=== PATIENT | female | born 1935 | race African-American/Black ===

== ENCOUNTER 2016-07-22 08:14 | Inpatient (IN) | payer MEDICARE, OTHER ==
[~2016-07-22] VITALS: Ht 167.6 cm; Wt 88.5 kg
[2016-07-22] VITALS (7 sets, daily range): BP systolic 124–163; BP diastolic 50–87
[~2016-07-22 08:14] MED LIST: AMIODARONE HCL400 M1 ORAL; COLACE100 MG ORAL; CORDARONE200 M1 ORAL; COUMADIN5 MG ORAL; COUMADIN7.5 MG ORAL; DIOVAN40 MG ORAL; HYDROCODON-ACE1 EAC1 PO; LABETALOL HCL200 MG; LEVEMIR FL100 UNIT/1 SUBQ; LEVOTHROID25 MCG ORAL; LEVOTHYROXINE75 MCG ORAL; METOPROLOL SUCC25 MG ORAL; NOVOLOG100 UNIT/3 SUBQ; ONDANSETRON ODT4 MG ORAL; RENVELA800 MG PO; SENSIPAR30 MG ORAL; WARFARIN SODIUM1 MG ORAL; Warfarin RX monitoring MISC
--- NOTE | 2016-07-22 08:55 | Emergency Room Report ---
History of Present Illness General Chief Complaint: Chest Pain Source: Patient, EMS Present Illness HPI 81 YO F presents with acute chest pain with SOB for 3 hours. Chest pain is left sided, non-radiating, 8/10. No assoc fever/chills, cough, abd pain. Patient due for HD today. Last HD 2 days prior. Allergies: Coded Allergies: No Known Allergies (Verified , 09/03/10) Patient History Past Medical History: renal disease Past Surgical History: none Pertinent Family History: none Social History: Denies: alcohol use, drug use, smoking Now: No Immunizations: UTD Reviewed Nursing Documentation: PMH: Agreed, PSxH: Agreed Nursing Documentation-PMH Hx Cardiac Problems: Yes Hx Hypertension: Yes Hx Pacemaker: No Hx Asthma: No Hx COPD: No Hx Diabetes: Yes Hx Cancer: Yes Hx Gastrointestinal Problems: No Hx Dialysis: Yes History Of Psychiatric Problem: No Hx Neurological Problems: No Hx Cerebrovascular Accident: No Hx Seizures: No Review of Systems All Other Systems: negative except mentioned in HPI Physical Exam Vital Signs Date Time Temp Pulse Resp B/P Pulse Ox O2 Delivery O2 Flow Rate FiO2 07/22/16 08:20 97.9 72 16 158/78 98 Room Air Sp02 EP Interpretation: reviewed, normal General Appearance: normal inspection, well appearing, no apparent distress, alert, GCS 15, non-toxic Head: normocephalic, atraumatic Eyes: bilateral eye EOMI, bilateral eye PERRL ENT: normal ENT inspection, hearing grossly normal, normal voice Neck: normal inspection, full range of motion, supple, no bony tend Respiratory: normal inspection, normal breath sounds, no rhonchi, no respiratory distress, no retraction, no accessory muscle use, no wheezing, crackles Cardiovascular #1: regular rate, rhythm, no edema Genitourinary: no CVA tenderness Musculoskeletal: normal inspection, back normal, normal range of motion, Jair' s Sign negative, other - bilateral +1 pitting edema to lower extremities Neurologic: normal inspection, alert, oriented x3, responsive, warble saw operator III-XII nml as tested, motor strength/tone normal, speech normal Psychiatric: normal inspection, judgement/insight normal, mood/affect normal Skin: normal inspection, normal color, no rash Procedures Critical Care Time Critical Care Time Care for a 81 YO Fwith Chest pain. PMHx and CAD risk factors include: HTN, CKD on HD Presents warm, complains of left sided nonradiating chest pain, sharp in nature onset 3 hours prior assoc with SOB Patient immediately placed on elevator service mechanic with rhytm strip and STAT EKG was obtained which showed 1st degree AV block, no ischemia Labs indicated: CBC, CMP, troponin, BNP Highly suspected: AMI vs. unstable angina vs MSK pain vs acute pulm edema Possible interventions - BIPAP, Heparin, SL Ntg, Nitro drip, Thrombolytics, repeat EKG. ASA and Nitro given by EMS Critical care time of 35 minutes including: re-exams and consultations and review of serial EKG's and Laboratory tests, not including reportable procedures. Medical Decision Making Medicare Attestation I Snehal Torres MD hereby attest that the medical record entry for date of service, 06/28/16 accurately reflects signatures/notations that I made in my capacity as MD when I treated/diagnosed the above listed Medicare beneficiary. I attest that this information is true, accurate and complete to the best of my knowledge. I understand that any falsification, omission, or concealment of material fact may subject me to administrative, civil, or criminal liability. This patient warrants hospital admission for extreme of age and has a condition that cannot be treated as outpatient. Diagnostic Impression: Primary Impression: Chest pain Qualified Codes: R07.9 - Chest pain, unspecified Additional Impressions: Hyperkalemia CKD (chronic kidney disease) Qualified Codes: N18.9 - Chronic kidney disease, unspecified ER Course 81 YO F with acute chest pain and SOB. Due for HD today. Afebrile. VSS DDx includes ACS, PNA, acute pulm edema, MSK pain PLAN Cardiac, O2 monitor, labs, EKG, CXR Likely admission for ACS rule out and HD EKG Diagnostic Results Rate: other - 1st degree AV block Rhythm: NSR ST Segments: no acute changes ASA given to the pt in ED: No Rhythm Strip Diag. Results EP Interpretation: yes Rate: 79 Rhythm: NSR, no PVC's, no ectopy Chest X-Ray Diagnostic Results EP Interpretation: Yes Findings: no consolidation, no effusion, no pneumothorax, other - bilateral pulm congestion Reevaluation Time: 10:32 Last Vital Signs Date Time Temp Pulse Resp B/P Pulse Ox O2 Delivery O2 Flow Rate FiO2 07/22/16 08:42 72 16 Room Air 07/22/16 08:34 97.9 158/78 98 Reevaluation Impression CXR: pulm congestion, unchanged from previous. CMP: HyperK. CKD. Elevated BNP EKst degree AV alessandra A: Needs HD. Pulm congestion on CXR but patient not in acute distress. Normal vital signs. hyperK tx with kayexelate, calicum and albuterol Endorsed to Dr Emmanuel at 1034am for tele admission and ACS rule out Disposition: ADMITTED INPATIENT Condition: Critical Referrals: NOT CHOSEN IPA/,REFERRING (PCP) SNEHAL TORRES M.D. Jul 22, 2016 08:55
[2016-07-22 10:06] LABS: BASOPHILS % (AUTO) 1.1 % (0.0-2.0); EOSINOPHILS % (AUTO) 4.5 % (0.0-3.0); LYMPHOCYTES % (AUTO) 17.9 % (20.0-45.0); MEAN CORPUSCULAR HEMOGLOBIN 29.2 PG (27.0-31.0); MEAN CORPUSCULAR HGB CONC 31.3 G/DL (32.0-36.0); MEAN CORPUSCULAR VOLUME 93 FL (80-99); MEAN PLATELET VOLUME 8.8 FL (6.5-10.1); MONOCYTES % (AUTO) 18.3 % (1.0-10.0); NEUTROPHILS % (AUTO) 58.2 % (45.0-75.0); PLATELET COUNT 145 K/UL (150-450); RED CELL DISTRIBUTION WIDTH 14.9 % (11.6-14.8); WHITE BLOOD COUNT 4.4 K/UL (4.8-10.8)
[2016-07-22 10:21] LABS: ALANINE AMINOTRANSFERASE 5 U/L (3-33); ASPARTATE AMINO TRANSFERASE 16 U/L (5-40); CALCIUM 8.4 mg/dL (8.6-10.2); CARBON DIOXIDE 23 mEQ/L (20-30); CHLORIDE 90 mEQ/L (98-107); CREATININE 8.2 mg/dL (0.5-0.9); HEMOLYSIS 16; SODIUM 137 mEQ/L (135-145); TOTAL PROTEIN 7.5 g/dL (6.6-8.7)
[2016-07-22 10:23] LABS: TROPONIN I < 0.30 ng/mL (<=0.30)
--- NOTE | 2016-07-22 10:28 | Diagnostic Imaging Report ---
Indication: Chest pain Technique: One view of the chest Comparison: 04/20/2015 Findings: There is bilateral interstitial edema, appearance of which is similar to the prior study. There is airspace disease and small right pleural effusion, also similar to prior exam. The heart is markedly enlarged. Surgical clips are seen in the region of the thyroid. Degenerative changes of both shoulders are again noted. Left upper lobe calcified granuloma is again demonstrated Impression: Cardiomegaly Evidence of interstitial congestion, similar to previous exam of 04/20/2015 Other stable findings as noted, including evidence of prior thyroid surgery, old granulomatous disease, bilateral shoulder degeneration
[2016-07-22 10:34] LABS: CKMB 4.5 ng/mL (< 3.8)
[2016-07-22 10:39] LABS: ANION GAP 24 (5-15)
[2016-07-22 10:49] LABS: POTASSIUM 7.1 mEQ/L (3.4-4.9)
[2016-07-22] MEDS ORDERED: WARFARIN SODIUM5 MG ORAL (10:59)
[2016-07-22] MEDS ORDERED: LABETALOL HCL100 MG ORAL (11:00)
[2016-07-22] MEDS ORDERED: DIOVAN40 MG ORAL (11:00)
[2016-07-22] MEDS ORDERED: Sodium Polystyrene Sulfonate 15gm Powder ORAL ONE (11:15)
[2016-07-22] MEDS ORDERED: Albuterol ud Inhalation HHN ONE (11:15)
[2016-07-22] MEDS ORDERED: Calcium Gluconate 1gm/10ml vial IVP ONE (11:15)
--- NOTE | 2016-07-22 12:30 | Consultation ---
Consult Note Assessment/Plan Renal consult dictated # [id number] THOM CASTILLO Jul 22, 2016 12:30
[2016-07-22] MEDS ORDERED: Amiodarone 200mg tab ORAL SCH (14:00)
[2016-07-22] MEDS ORDERED: Sensipar 30mg Tab ORAL SCH (14:00)
[2016-07-22 14:29] LABS: INR 2.5 (0.9-1.1); PROTHROMBIN TIME 26.5 SEC (9.30-11.50)
[2016-07-22 14:36] LABS: TROPONIN I < 0.30 ng/mL (<=0.30)
[2016-07-22] MEDS: Warfarin Sodium 5mg ORAL SCH (16:00)
--- NOTE | 2016-07-22 17:37 | Consultation ---
DATE OF CONSULTATION: NEPHROLOGY CONSULTATION REFERRING PHYSICIAN: Marquis Vizcarra M.D. REASON FOR CONSULTATION: End-stage renal disease, requiring emergent dialysis. HISTORY OF PRESENT ILLNESS: This is a 81-year-old female, who has a history of end-stage renal disease, on hemodialysis every Tuesday, , and Tuesday. The patient is under care of Dr. Lopez for Nephrology. Dr. Vizcarra has seen the patient in the past for Internal Medicine. The patient came to the emergency room for chest pain. I was asked to see her because she needs dialysis. Her laboratories were checked this morning in the ER and it showed the potassium of 7.1. PAST MEDICAL HISTORY: History of diabetes mellitus, atrial fibrillation, history of breast cancer status post lumpectomy, and previous history of gastrointestinal stromal tumor. The patient had a tunnel catheter removed in April. The patient has new dialysis access in the left arm. MEDICATIONS: Reviewed. ALLERGIES: No known drug allergies. SOCIAL HISTORY: No history of smoking or alcohol abuse. REVIEW OF SYSTEMS: Noncontributory for the purpose for this consultation. PHYSICAL EXAMINATION: GENERAL: This is an elderly female, in no acute distress. VITAL SIGNS: Blood pressure is 158/78, pulse 58, respirations 19, and temperature 97.9 degrees. HEENT: [place] conjunctivae. Anicteric sclerae. NECK: Supple. LUNGS: Clear to auscultation. HEART: S1 and S2 without murmurs or rubs. ABDOMEN: Soft and nontender. EXTREMITIES: Trace pedal edema. LABORATORY AND DIAGNOSTIC DATA: The CBC shows a WBC of 4.4, hematocrit 41.9, hemoglobin is 13.1, and platelets 145,000. Chemistry panel shows serum sodium of 137, potassium 7.1, chloride 90, BUN 78, and creatinine 8.2. Calcium is 8.4. ASSESSMENT: This is a 81-year-old female, who is admitted with chest pain. She has end-stage renal disease with severe hyperkalemia. She has history of diabetes and hypertension and history of breast cancer. PLAN: The patient will be dialyzed today with zero potassium bath. Medication will be adjusted. The patient will have cardiology workup for chest pain. I will follow and make further recommendations based on hospital course and findings. Thank you very much, Dr. Vizcarra, for this consultation. Billy Emmanuel M.D. DR: TRISHA JOB#: [id number] CC: LETICIA
[2016-07-22] MEDS: Docusate 100mg cap ORAL SCH (17:52)
--- NOTE | 2016-07-22 19:11 | History & Physical ---
History and Physical History & Physicial DATE OF ADMISSION: 07/22/16 CHIEF COMPLAINT: chest pain HISTORY OF PRESENT ILLNESS: This is a 80-year-old female, who has a history of end-stage renal disease on hemodialysis every Tuesday, and Tuesday, atrial fibrillation on Coumadin, DM, Right breast ca s/p XRT and lumpectomy 2010, HTN who presents with Left Chest pain that started while sitting in a chair earlier this AM. She had pain over her right breast which she describes as sharp and diffuse but non-radiating. she states she had SOB associated with the CP. denies nausea, vomiting or abd pain. Her last dialysis was today - 2.5L . PAST MEDICAL HISTORY: The patient has a history of atrial fibrillation on coumadin , history of breast cancer status post lumpectomy, hypertension, diabetes mellitus, history of hemorrhoids. She said that she had also kidney cancer; 1 of the kidneys were removed. MEDICATIONS AT HOME: Included: Current Medications Medications (Trade) Dose Ordered Sig/Donte Route PRN Reason Start Time Stop Time Status Last Admin Dose Admin Amiodarone HCl (Cordarone) 200 mg DAILY ORAL 07/23/16 09:00 08/22/16 08:59 Cinacalcet (Sensipar) 30 mg DAILY ORAL 07/23/16 09:00 08/22/16 08:59 Dextrose (Dextrose 50%) STAT PRN IV Hypoglycemia 07/22/16 12:30 08/21/16 12:29 Docusate Sodium (Colace) 100 mg BID ORAL 07/22/16 18:00 08/21/16 17:59 07/22/16 17:52 Heparin Sodium (Porcine) (Heparin Sod 1000 units/ml 10ml) 2,000 unit ONCE ONCE IV 07/23/16 12:30 07/23/16 12:31 Labetalol HCl (Normodyne) 200 mg Q8HR ORAL 07/22/16 14:00 08/21/16 13:59 Levothyroxine Sodium (Synthroid) 88 mcg DAILY ORAL 07/22/16 14:00 08/21/16 13:59 07/22/16 14:33 Sevelamer Carbonate (Renvela) 4,000 mg BEFORE MEALS ORAL 07/22/16 16:30 08/21/16 16:29 07/22/16 16:03 Sodium Chloride (Sodium Chloride 1000ml bag) 1,000 ml @ 500 mls/hr Q2H PRN IVLG sbp<90 during hd 07/23/16 12:17 08/22/16 12:16 Warfarin Sodium (Coumadin) 5 mg SuTuThSa@1700 ORAL 07/22/16 17:00 07/27/16 16:59 07/22/16 16:00 Warfarin Sodium (Coumadin) 7.5 mg MoWeFr@1700 ORAL 07/23/16 17:00 07/28/16 16:59 SOCIAL HISTORY: No history of smoking or alcohol abuse. ALLERGIES: No known drug allergies. REVIEW OF SYSTEMS: 12 pt ROS negative except above positives PHYSICAL EXAMINATION: Last 24 Hour Vital Signs Date Time Temp Pulse Resp B/P Pulse Ox O2 Delivery O2 Flow Rate FiO2 07/22/16 17:40 Room Air 07/22/16 17:39 97.0 60 20 128/66 97 Room Air 07/22/16 16:00 65 07/22/16 16:00 97.7 61 13 143/75 100 Room Air 07/22/16 13:57 62 157/77 07/22/16 13:30 96.8 75 20 163/87 97 Room Air 07/22/16 13:30 Room Air 07/22/16 12:40 62 19 157/77 99 Room Air 07/22/16 12:34 97.9 62 16 157/77 99 Room Air 07/22/16 11:57 58 19 99 Room Air 21 07/22/16 11:42 53 19 98 Room Air 21 07/22/16 11:42 21 07/22/16 10:00 97.9 78 16 124/50 99 Room Air 07/22/16 08:42 72 16 Room Air 07/22/16 08:34 97.9 16 158/78 98 Room Air 07/22/16 08:20 97.9 72 16 158/78 98 Room Air HEENT: Pale conjunctivae. Anicteric sclerae. NECK: Supple. no JVD. LUNGS: Clear to auscultation b/l. no rales or crackles HEART: S1 and S2 without murmurs or rubs. chest wall - right breast surgical scar. right breast fullness and firmness with some tenderness to touch. ABDOMEN: Soft, nontender. EXTREMITIES: Trace edema bilaterally. The patient has a left upper arm fistula with some pseudoaneurysm. LABORATORY FINDINGS: Laboratory Tests Test 07/22/16 09:32 07/22/16 14:05 White Blood Count 4.4 K/UL (4.8-10.8) L Red Blood Count 4.50 M/UL (4.20-5.40) Hemoglobin 13.1 G/DL (12.0-16.0) Hematocrit 41.9 % (37.0-47.0) Mean Corpuscular Volume 93 FL (80-99) Mean Corpuscular Hemoglobin 29.2 PG (27.0-31.0) Mean Corpuscular Hemoglobin Concent 31.3 G/DL (32.0-36.0) L Red Cell Distribution Width 14.9 % (11.6-14.8) H Platelet Count 145 K/UL (150-450) L Mean Platelet Volume 8.8 FL (6.5-10.1) Neutrophils (%) (Auto) 58.2 % (45.0-75.0) Lymphocytes (%) (Auto) 17.9 % (20.0-45.0) L Monocytes (%) (Auto) 18.3 % (1.0-10.0) H Eosinophils (%) (Auto) 4.5 % (0.0-3.0) H Basophils (%) (Auto) 1.1 % (0.0-2.0) Sodium Level 137 mEQ/L (135-145) Potassium Level 7.1 mEQ/L (3.4-4.9) *H Chloride Level 90 mEQ/L (98-107) L Carbon Dioxide Level 23 mEQ/L (20-30) Anion Gap 24 (5-15) H Blood Urea Nitrogen 78 mg/dL (7-23) H Creatinine 8.2 mg/dL (0.5-0.9) H Estimat Glomerular Filtration Rate mL/min (>60) Glucose Level 80 mg/dL (74-106) Calcium Level 8.4 mg/dL (8.6-10.2) L Total Bilirubin 0.5 mg/dL (0.0-1.2) Aspartate Amino Transf (AST/SGOT) 16 U/L (5-40) Alanine Aminotransferase (ALT/SGPT) 5 U/L (3-33) Alkaline Phosphatase 105 U/L (35-104) H Total Creatine Kinase 97 U/L (26-140) Creatine Kinase MB 4.5 ng/mL (< 3.8) H Creatine Kinase MB Relative Index 4.6 Troponin I < 0.30 ng/mL (<=0.30) < 0.30 ng/mL (<=0.30) Pro-B-Type Natriuretic Peptide 7650 pg/mL (0-450) H Total Protein 7.5 g/dL (6.6-8.7) Albumin 3.8 g/dL (3.5-5.2) Globulin 3.7 g/dL Albumin/Globulin Ratio 1.0 (1.0-2.7) Prothrombin Time 26.5 SEC (9.30-11.50) H Prothromb Time International Ratio 2.5 (0.9-1.1) H CXR - mild pulmonary congestion EKG - Sinus bradycardia wwith 1st degree block./ no ST changes. ASSESSMENT: right sided chest pain - noncardiac. likely 2/2 R breast mass/fluid vs PE ESRD on HD Hyperkalemia HTN PLAN: Cardiac monitoring trop x 2 negative Cardiology recs appreciated HD per renal. due for HD today Renal consulted EKG shows no St changes ASA and Statin c/w coumadin Will review [facility] records. She may need a CT chest with IV contrast to r/o breast ca reoccurrence or PE. BENJI GONZALEZ M.D. Jul 22, 2016 19:11
[2016-07-23] VITALS: BP 136/68
[2016-07-23 04:00] VITALS: BP 137/70
[2016-07-23 06:01] LABS: ANION GAP 21 (5-15); CALCIUM 8.1 mg/dL (8.6-10.2); CARBON DIOXIDE 22 mEQ/L (20-30); CHLORIDE 91 mEQ/L (98-107); CHOLESTEROL 157 mg/dL (< 200); CHOLESTEROL/HDL RATIO 3.4 (3.3-4.4); CREATININE 7.4 mg/dL (0.5-0.9); HEMOLYSIS 38; LDL CHOLESTEROL (CALC.) 99 mg/dL (60-99); POTASSIUM 5.7 mEQ/L (3.4-4.9); SODIUM 134 mEQ/L (135-145)
[2016-07-23 06:04] LABS: PROTHROMBIN TIME 31.7 SEC (9.30-11.50); TROPONIN I < 0.30 ng/mL (<=0.30)
[2016-07-23 08:00] VITALS: BP 156/80
[2016-07-23] MEDS: Docusate 100mg cap ORAL SCH ×2 (09:10→18:12)
[2016-07-23] MEDS: Amiodarone 200mg tab ORAL SCH (09:11)
[2016-07-23] MEDS: Sensipar 30mg Tab ORAL SCH (09:12)
[2016-07-23 12:00] VITALS: BP 168/80
[2016-07-23] MEDS ORDERED: Heparin Sod 1000 units/ml 10ml IV ONE (12:30)
--- NOTE | 2016-07-23 13:11 | Nephrology Progress Note ---
Assessment/Plan Problem List: (1) ESRD (end stage renal disease) (2) HTN (hypertension) (3) DM (diabetes mellitus) (4) Hyperkalemia (5) Chest pain (6) ACS (acute coronary syndrome) Plan HD in AM Discussed with RN CT chest was ordered Subjective Subjective No CP today Objective Objective Last 24 Hour Vital Signs Date Time Temp Pulse Resp B/P Pulse Ox O2 Delivery O2 Flow Rate FiO2 07/23/16 08:00 97.9 58 20 156/80 98 Room Air 07/23/16 08:00 60 07/23/16 06:00 56 137/70 07/23/16 04:00 60 07/23/16 04:00 97.9 56 18 137/70 96 Room Air 07/23/16 00:00 98.4 60 20 136/68 98 Room Air 07/22/16 23:51 68 07/22/16 22:03 67 143/78 07/22/16 20:00 63 07/22/16 20:00 97.5 63 13 141/70 98 Room Air 07/22/16 17:40 Room Air 07/22/16 17:39 97.0 60 20 128/66 97 Room Air 07/22/16 16:00 65 07/22/16 16:00 97.7 61 13 143/75 100 Room Air 07/22/16 13:57 62 157/77 07/22/16 13:30 96.8 75 20 163/87 97 Room Air 07/22/16 13:30 Room Air Intake and Output 07/22/16 07/23/16 19:00 07:00 Intake Total 120 ml 100 ml Output Total 2500 ml Balance -2380 ml 100 ml Intake Oral 120 ml 100 ml Other 0 ml Output Hemodialysis UF 2500 ml # Voids 2 # Bowel Movements 1 1 Laboratory Tests 07/22/16 14:05: Prothrombin Time 26.5H, Prothromb Time International Ratio 2.5H, Troponin I < 0.30 07/23/16 03:45: Prothrombin Time 31.7H, Prothromb Time International Ratio 3.0H, Troponin I < 0.30, Sodium Level 134L, Potassium Level 5.7H, Chloride Level 91L, Carbon Dioxide Level 22, Anion Gap 21H, Blood Urea Nitrogen 66H, Creatinine 7.4H, Estimat Glomerular Filtration Rate , Glucose Level 99, Hemoglobin A1c 5.0, Calcium Level 8.1L, Triglycerides Level 59, Cholesterol Level 157, LDL Cholesterol 99, HDL Cholesterol 46, Cholesterol/HDL Ratio 3.4 Height (Feet): 5 Height (Inches): 6.00 Weight (Pounds): 195 Cardiovascular: normal rate Respiratory/Chest: lungs clear Extremities: moderate edema THOM CASTILLO Jul 23, 2016 13:11
--- NOTE | 2016-07-23 13:56 | Cardiology Report ---
APPROVED REPORT EKG Measurement Heart [id number] Sinus bradycardia with 1st degree AV block Nonspecific intraventricular block Abnormal ECG
[2016-07-23 16:00] VITALS: BP 146/87
[2016-07-23] MEDS: Warfarin Sodium 7.5mg ORAL SCH (16:27)
[2016-07-23 20:00] VITALS: BP 136/73
--- NOTE | 2016-07-23 23:43 | Internal Med Progress Note ---
Subjective Physician Name ZackeryBenji Attending Physician Billy Emmanuel Current Medications Medications (Trade) Dose Ordered Sig/Donte Route PRN Reason Start Time Stop Time Status Last Admin Dose Admin Acetaminophen 650 mg 650 mg Q6H PRN ORAL Mild Pain 07/22/16 21:30 08/21/16 21:29 07/23/16 16:26 Amiodarone HCl (Cordarone) 200 mg DAILY ORAL 07/23/16 09:00 08/22/16 08:59 07/23/16 09:11 Cinacalcet (Sensipar) 30 mg DAILY ORAL 07/23/16 09:00 08/22/16 08:59 07/23/16 09:12 Dextrose (Dextrose 50%) STAT PRN IV Hypoglycemia 07/22/16 12:30 08/21/16 12:29 Docusate Sodium (Colace) 100 mg BID ORAL 07/22/16 18:00 08/21/16 17:59 07/23/16 18:12 Heparin Sodium (Porcine) (Heparin Sod 1000 units/ml 10ml) 500 unit ONCE IV 07/24/16 06:00 07/24/16 18:00 Labetalol HCl (Normodyne) 200 mg Q8HR ORAL 07/22/16 14:00 08/21/16 13:59 07/23/16 21:40 Levothyroxine Sodium (Synthroid) 88 mcg DAILY ORAL 07/22/16 14:00 08/21/16 13:59 07/23/16 09:10 Sevelamer Carbonate (Renvela) 4,000 mg BEFORE MEALS ORAL 07/22/16 16:30 08/21/16 16:29 07/23/16 16:26 Sodium Chloride (Sodium Chloride 1000ml bag) 1,000 ml @ 500 mls/hr Q2H PRN IVLG sbp<90 during hd 07/24/16 06:00 07/24/16 23:59 Warfarin Sodium (Coumadin) 5 mg SuTuThSa@1700 ORAL 07/22/16 17:00 07/27/16 16:59 07/22/16 16:00 Warfarin Sodium (Coumadin) 7.5 mg MoWeFr@1700 ORAL 07/23/16 17:00 07/28/16 16:59 07/23/16 16:27 Allergies: Coded Allergies: No Known Allergies (Verified , 09/03/10) All Systems: reviewed and negative except above - Chest pain resolved today. had HD Objective Last Vital Signs Date Time Temp Pulse Resp B/P Pulse Ox O2 Delivery O2 Flow Rate FiO2 07/23/16 21:40 64 146/87 07/23/16 20:00 98.1 27 98 Room Air 07/22/16 11:57 21 General Appearance: WD/WN, no apparent distress EENT: PERRL/EOMI, normal ENT inspection Neck: non-tender, normal alignment Cardiovascular: normal peripheral pulses, normal rate Respiratory/Chest: chest wall non-tender, lungs clear Abdomen: normal bowel sounds, non tender Extremities: normal range of motion, non-tender Edema: trace edema Neurologic: alert, responsive, normal mood/affect Skin: other - right breast firm mass w/ some fluctuance Laboratory Tests Test 07/23/16 03:45 Prothrombin Time 31.7 SEC (9.30-11.50) H Prothromb Time International Ratio 3.0 (0.9-1.1) H Sodium Level 134 mEQ/L (135-145) L Potassium Level 5.7 mEQ/L (3.4-4.9) H Chloride Level 91 mEQ/L (98-107) L Carbon Dioxide Level 22 mEQ/L (20-30) Anion Gap 21 (5-15) H Blood Urea Nitrogen 66 mg/dL (7-23) H Creatinine 7.4 mg/dL (0.5-0.9) H Estimat Glomerular Filtration Rate mL/min (>60) Glucose Level 99 mg/dL (74-106) Hemoglobin A1c 5.0 % (< 6.0) Calcium Level 8.1 mg/dL (8.6-10.2) L Troponin I < 0.30 ng/mL (<=0.30) Triglycerides Level 59 mg/dL (< 150) Cholesterol Level 157 mg/dL (< 200) LDL Cholesterol 99 mg/dL (60-99) HDL Cholesterol 46 mg/dL (> 60) Cholesterol/HDL Ratio 3.4 (3.3-4.4) Intake and Output 07/22/16 07/23/16 19:00 07:00 Intake Total 120 ml 100 ml Output Total 2500 ml Balance -2380 ml 100 ml Intake Oral 120 ml 100 ml Other 0 ml Output Hemodialysis UF 2500 ml # Voids 2 # Bowel Movements 1 1 Assessment/Plan Assessment/Plan ASSESSMENT: right sided chest pain - noncardiac. 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 due for HD today Renal consulted EKG shows no St changes ASA and Statin c/w coumadin CT chest with IV contrast to r/o breast ca reoccurrence or PE. if CT chest normal D/C HOME TOMORROW BENJI GONZALEZ M.D. Jul 22, 2016 19:11 Addendum: BENJI GONZALEZ M.D. on 07/22/16 @ 19:12 BENJI GONZALEZ M.D. Jul 23, 2016 23:43
[2016-07-24 00:20] VITALS: BP 156/74
[2016-07-24 04:00] VITALS: BP 142/59
[2016-07-24 05:48] LABS: INR 2.3 (0.9-1.1); PROTHROMBIN TIME 23.6 SEC (9.30-11.50)
[2016-07-24] MEDS ORDERED: Heparin Sod 1000 units/ml 10ml IV SCH (06:00)
[2016-07-24 08:02] VITALS: BP 155/59
[2016-07-24] MEDS: Sensipar 30mg Tab ORAL SCH (08:57)
[2016-07-24] MEDS: Docusate 100mg cap ORAL SCH ×2 (08:57→17:21)
[2016-07-24] MEDS: Amiodarone 200mg tab ORAL SCH (08:57)
--- NOTE | 2016-07-24 09:15 | Diagnostic Imaging Report ---
Clinical Indication: Chest pain, right breast mass Technique: IV administration nonionic contrast. Spiral acquisition obtained through the chest. Multiplanar reconstructions generated. Total dose length product 1260 mGycm. CTDIvol(s) 8, 62, 27 mGy Comparison: Chest CT angiogram dated 03/01/2013 Findings: 6 x 4 cm fluid collection is seen in the right breast, deep to the parenchyma but superficial to the pectoral muscles. It demonstrates rim calcification. It appears smaller than on the prior study, at which time it measured 8 x 6.5 cm. The previously demonstrated overlying skin thickening is no longer evident. The left breast is unremarkable and unchanged, demonstrate very dense parenchyma, however. No axillary mass or adenopathy demonstrated. There is a small right and trace left pleural effusion present. There is a masslike opacity posterior to the right pulmonary hilum, with its some scattered surrounding opacities. This measures approximately 2.1 cm in diameter. There are compressive atelectatic changes of left lung base. Compressive atelectatic changes of the left lung are also noted, as well as some atelectasis in the posterior left upper lobe. A calcified granuloma is again demonstrated in the superior segment of the left lower lobe. The heart is massively enlarged. There is an enlarged precarinal node, which measures approximately 3.6 cm in diameter. Calcified granulomatous lymph nodes are seen within the mediastinum. There is evidence of prior right thyroidectomy. The left thyroid lobe is markedly enlarged and demonstrates numerous nodules. This is also evident previously. The included upper abdominal anatomy is remarkable for evidence of interim cholecystectomy. The left kidney is atrophic and contains multiple cysts. This is also evident previously. The right kidney is not evident The spleen demonstrates numerous calcifications consistent with old granulomatous disease. The liver also contains numerous calcifications. The stomach is distended. The bones demonstrate a compression fracture deformity of the L1 vertebral body which was not evident on the prior study. Impression: 6 x 4 cm right breast fluid collection, demonstrated on prior 2012 exam, currently slightly smaller. This may reflect either a prosthesis or seroma, less likely a very large cyst Masslike opacity posterior the right pulmonary hilum, measuring approximately 2.1 cm in diameter. This may represent neoplasm or focal infiltrate Small right, trace left pleural effusion Compressive atelectatic changes of both lungs Massive cardiomegaly Precarinal lymphadenopathy Enlarged multinodular left thyroid lobe, also previously described. Evidence of prior right thyroidectomy Atrophic left kidney with multiple cysts, previously described Evidence of prior right nephrectomy Interim cholecystectomy L1 vertebral body compression fracture, new since prior exam of 2012, age otherwise indeterminate. Consider MRI for better characterization if clinically indicated Evidence of old granulomatous disease within the left lung, mediastinum, liver and spleen The CT scanner at [facility] is accredited by the [employer] and the scans are performed using protocols designed to limit radiation exposure to as low as reasonably achievable to attain images of sufficient resolution adequate for diagnostic evaluation.
[2016-07-24 11:12] VITALS: BP 148/74
[2016-07-24 13:27] LABS: TROPONIN I < 0.30 ng/mL (<=0.30)
--- NOTE | 2016-07-24 14:49 | Internal Med Progress Note ---
Subjective Date of Service: Jul 24, 2016 Physician Name Abhinav Martínez Attending Physician Billy Emmanuel Current Medications Medications (Trade) Dose Ordered Sig/Donte Route PRN Reason Start Time Stop Time Status Last Admin Dose Admin Acetaminophen 650 mg 650 mg Q6H PRN ORAL Mild Pain 07/22/16 21:30 08/21/16 21:29 07/24/16 10:28 Amiodarone HCl (Cordarone) 200 mg DAILY ORAL 07/23/16 09:00 08/22/16 08:59 07/24/16 08:57 Cinacalcet (Sensipar) 30 mg DAILY ORAL 07/23/16 09:00 08/22/16 08:59 07/24/16 08:57 Dextrose (Dextrose 50%) STAT PRN IV Hypoglycemia 07/22/16 12:30 08/21/16 12:29 Docusate Sodium (Colace) 100 mg BID ORAL 07/22/16 18:00 08/21/16 17:59 07/24/16 08:57 Heparin Sodium (Porcine) (Heparin Sod 1000 units/ml 10ml) 500 unit ONCE IV 07/24/16 06:00 07/24/16 18:00 Labetalol HCl (Normodyne) 200 mg Q8HR ORAL 07/22/16 14:00 08/21/16 13:59 07/23/16 21:40 Levothyroxine Sodium (Synthroid) 88 mcg DAILY ORAL 07/22/16 14:00 08/21/16 13:59 07/24/16 08:57 Sevelamer Carbonate (Renvela) 4,000 mg BEFORE MEALS ORAL 07/22/16 16:30 08/21/16 16:29 07/23/16 16:26 Sodium Chloride (Sodium Chloride 1000ml bag) 1,000 ml @ 500 mls/hr Q2H PRN IVLG sbp<90 during hd 07/24/16 06:00 07/24/16 23:59 Warfarin Sodium (Coumadin) 5 mg SuTuThSa@1700 ORAL 07/22/16 17:00 07/27/16 16:59 07/22/16 16:00 Warfarin Sodium (Coumadin) 7.5 mg MoWeFr@1700 ORAL 07/23/16 17:00 07/28/16 16:59 07/23/16 16:27 Allergies: Coded Allergies: No Known Allergies (Verified , 09/03/10) Objective Last Vital Signs Date Time Temp Pulse Resp B/P Pulse Ox O2 Delivery O2 Flow Rate FiO2 07/24/16 11:12 97.1 54 18 148/74 100 Room Air 07/22/16 11:57 21 Laboratory Tests Test 07/24/16 04:20 07/24/16 12:30 Prothrombin Time 23.6 SEC (9.30-11.50) H Prothromb Time International Ratio 2.3 (0.9-1.1) H Troponin I < 0.30 ng/mL (<=0.30) Intake and Output 07/23/16 07/24/16 19:00 07:00 Intake Total 220 ml 700 ml Balance 220 ml 700 ml Intake Oral 220 ml 700 ml # Voids 2 2 # Bowel Movements 2 3 ABHINAV MARTÍNEZ Jul 24, 2016 14:49
--- NOTE | 2016-07-24 15:00 | Internal Med Progress Note ---
Subjective Date of Service: Jul 24, 2016 Physician Name Abhinav Martínez Attending Physician Billy Emmanuel Current Medications Medications (Trade) Dose Ordered Sig/Donte Route PRN Reason Start Time Stop Time Status Last Admin Dose Admin Acetaminophen 650 mg 650 mg Q6H PRN ORAL Mild Pain 07/22/16 21:30 08/21/16 21:29 07/24/16 10:28 Amiodarone HCl (Cordarone) 200 mg DAILY ORAL 07/23/16 09:00 08/22/16 08:59 07/24/16 08:57 Cinacalcet (Sensipar) 30 mg DAILY ORAL 07/23/16 09:00 08/22/16 08:59 07/24/16 08:57 Dextrose (Dextrose 50%) STAT PRN IV Hypoglycemia 07/22/16 12:30 08/21/16 12:29 Docusate Sodium (Colace) 100 mg BID ORAL 07/22/16 18:00 08/21/16 17:59 07/24/16 08:57 Heparin Sodium (Porcine) (Heparin Sod 1000 units/ml 10ml) 500 unit ONCE IV 07/24/16 06:00 07/24/16 18:00 Labetalol HCl (Normodyne) 200 mg Q8HR ORAL 07/22/16 14:00 08/21/16 13:59 07/23/16 21:40 Levothyroxine Sodium (Synthroid) 88 mcg DAILY ORAL 07/22/16 14:00 08/21/16 13:59 07/24/16 08:57 Sevelamer Carbonate (Renvela) 4,000 mg BEFORE MEALS ORAL 07/22/16 16:30 08/21/16 16:29 07/23/16 16:26 Sodium Chloride (Sodium Chloride 1000ml bag) 1,000 ml @ 500 mls/hr Q2H PRN IVLG sbp<90 during hd 07/24/16 06:00 07/24/16 23:59 Warfarin Sodium (Coumadin) 5 mg SuTuThSa@1700 ORAL 07/22/16 17:00 07/27/16 16:59 07/22/16 16:00 Warfarin Sodium (Coumadin) 7.5 mg MoWeFr@1700 ORAL 07/23/16 17:00 07/28/16 16:59 07/23/16 16:27 Allergies: Coded Allergies: No Known Allergies (Verified , 09/03/10) ROS Limited/Unobtainable: No Constitutional: Reports: no symptoms HEENT: Reports: no symptoms Cardiovascular: Reports: chest pain Respiratory: Reports: shortness of breath Gastrointestinal/Abdominal: Reports: no symptoms Genitourinary: Reports: no symptoms Neurologic/Psychiatric: Reports: no symptoms Subjective Cover for Int Med-Dr Vizcarra. Objective Last Vital Signs Date Time Temp Pulse Resp B/P Pulse Ox O2 Delivery O2 Flow Rate FiO2 07/24/16 11:12 97.1 54 18 148/74 100 Room Air 07/22/16 11:57 21 General Appearance: WD/WN, no apparent distress, alert EENT: PERRL/EOMI, normal ENT inspection, TMs normal Neck: non-tender, normal alignment, supple Cardiovascular: normal peripheral pulses, no gallop/murmur, no JVD, bradycardia , irregularly irregular Respiratory/Chest: chest wall non-tender, no accessory muscle use, decreased breath sounds, crackles/rales, rhonchi - bilaterally, expiratory wheezing Abdomen: normal bowel sounds, non tender, soft, no organomegaly, no mass Extremities: normal range of motion Neurologic: die maintenance II-XII grossly normal, no motor/sensory deficits Skin: normal pigmentation, warm/dry Laboratory Tests Test 07/24/16 04:20 07/24/16 12:30 Prothrombin Time 23.6 SEC (9.30-11.50) H Prothromb Time International Ratio 2.3 (0.9-1.1) H Troponin I < 0.30 ng/mL (<=0.30) Intake and Output 07/23/16 07/24/16 19:00 07:00 Intake Total 220 ml 700 ml Balance 220 ml 700 ml Intake Oral 220 ml 700 ml # Voids 2 2 # Bowel Movements 2 3 Assessment/Plan Problem List: (1) Right middle lobe pneumonia Assessment & Plan: Start levaquin. Concerning in patient with history of breast cancer. await pulmonary consult. (2) Breast cancer (3) ESRD (end stage renal disease) Assessment & Plan: see nephrology note; Hemodialysis today. (4) Chest pain (5) PAF (paroxysmal atrial fibrillation) Assessment & Plan: Cont amiodarone and coumadin (6) DM (diabetes mellitus) (7) HTN (hypertension) Assessment & Plan: Labetalol (8) Bradycardia Assessment & Plan: On amiodarone. Await cardiology consult. (9) Hypothyroidism Assessment & Plan: cont levoxyl Status: not improved ABHINAV MARTÍNEZ Jul 24, 2016 15:00
--- NOTE | 2016-07-24 15:57 | Cardiac Electrophysiology PN ---
Subjective Subjective [id number] Objective Last 24 Hour Vital Signs Date Time Temp Pulse Resp B/P Pulse Ox O2 Delivery O2 Flow Rate FiO2 07/24/16 11:12 97.1 54 18 148/74 100 Room Air 07/24/16 08:02 97.5 59 18 155/59 100 Room Air 07/24/16 08:00 60 07/24/16 05:52 58 141/66 07/24/16 04:00 97.7 60 19 142/59 100 Room Air 07/24/16 03:44 60 07/24/16 00:20 98.1 64 19 156/74 97 Room Air 07/23/16 23:42 61 07/23/16 21:40 64 146/87 07/23/16 20:00 98.1 58 27 136/73 98 Room Air 07/23/16 20:00 62 07/23/16 16:00 97.9 56 27 146/87 99 Room Air 07/23/16 16:00 56 Intake and Output 07/23/16 07/24/16 19:00 07:00 Intake Total 220 ml 700 ml Balance 220 ml 700 ml Intake Oral 220 ml 700 ml # Voids 2 2 # Bowel Movements 2 3 Laboratory Tests Test 07/24/16 04:20 07/24/16 12:30 Prothrombin Time 23.6 SEC (9.30-11.50) H Prothromb Time International Ratio 2.3 (0.9-1.1) H Troponin I < 0.30 ng/mL (<=0.30) EZKE HAHN Jul 24, 2016 15:57
[2016-07-24 16:00] VITALS: BP 128/62
[2016-07-24] MEDS: Warfarin Sodium 5mg ORAL SCH (17:21)
--- NOTE | 2016-07-24 17:38 | Nephrology Progress Note ---
Assessment/Plan Problem List: (1) ESRD (end stage renal disease) (2) HTN (hypertension) (3) DM (diabetes mellitus) (4) Hyperkalemia (5) Chest pain (6) ACS (acute coronary syndrome) Plan dialyzed today Discussed with material hauler F/U Subjective Subjective No CP today Objective Objective Last 24 Hour Vital Signs Date Time Temp Pulse Resp B/P Pulse Ox O2 Delivery O2 Flow Rate FiO2 07/24/16 16:27 Room Air 07/24/16 12:20 Room Air 07/24/16 11:12 97.1 54 18 148/74 100 Room Air 07/24/16 08:02 97.5 59 18 155/59 100 Room Air 07/24/16 08:00 60 07/24/16 05:52 58 141/66 07/24/16 04:00 97.7 60 19 142/59 100 Room Air 07/24/16 03:44 60 07/24/16 00:20 98.1 64 19 156/74 97 Room Air 07/23/16 23:42 61 07/23/16 21:40 64 146/87 07/23/16 20:00 98.1 58 27 136/73 98 Room Air 07/23/16 20:00 62 Intake and Output 07/23/16 07/24/16 19:00 07:00 Intake Total 220 ml 700 ml Balance 220 ml 700 ml Intake Oral 220 ml 700 ml # Voids 2 2 # Bowel Movements 2 3 Laboratory Tests 07/24/16 04:20: Prothrombin Time 23.6H, Prothromb Time International Ratio 2.3H 07/24/16 12:30: Troponin I < 0.30 Height (Feet): 5 Height (Inches): 6.00 Weight (Pounds): 195 Cardiovascular: normal rate Respiratory/Chest: lungs clear Extremities: trace edema THOM CASTILLO Jul 24, 2016 17:38
[2016-07-24 20:00] VITALS: BP 155/76
[2016-07-25 00:16] VITALS: BP 146/64
[2016-07-25 04:07] VITALS: BP 146/77
[2016-07-25 06:44] LABS: INR 2.3 (0.9-1.1); PROTHROMBIN TIME 23.8 SEC (9.30-11.50)
[2016-07-25 07:05] LABS: BASOPHILS % (AUTO) 1.6 % (0.0-2.0); EOSINOPHILS % (AUTO) 2.6 % (0.0-3.0); MEAN CORPUSCULAR HEMOGLOBIN 29.5 PG (27.0-31.0); MEAN CORPUSCULAR HGB CONC 32.3 G/DL (32.0-36.0); MEAN CORPUSCULAR VOLUME 92 FL (80-99); MEAN PLATELET VOLUME 10.1 FL (6.5-10.1); MONOCYTES % (AUTO) 14.5 % (1.0-10.0); NEUTROPHILS % (AUTO) 65.4 % (45.0-75.0); PLATELET COUNT 130 K/UL (150-450); RED BLOOD COUNT 3.91 M/UL (4.20-5.40); RED CELL DISTRIBUTION WIDTH 14.6 % (11.6-14.8); WHITE BLOOD COUNT 5.2 K/UL (4.8-10.8)
[2016-07-25 07:07] LABS: ANION GAP 20 (5-15); CALCIUM 8.7 mg/dL (8.6-10.2); CARBON DIOXIDE 27 mEQ/L (20-30); CHLORIDE 88 mEQ/L (98-107); CREATININE 7.9 mg/dL (0.5-0.9); HEMOLYSIS 5; SODIUM 135 mEQ/L (135-145)
[2016-07-25 07:10] LABS: POTASSIUM 6.1 mEQ/L (3.4-4.9)
[2016-07-25 07:54] VITALS: BP 123/46
[2016-07-25] MEDS: Docusate 100mg cap ORAL SCH ×2 (08:38→17:47)
[2016-07-25] MEDS: Amiodarone 200mg tab ORAL SCH (08:38)
[2016-07-25] MEDS: Sensipar 30mg Tab ORAL SCH (08:38)
--- NOTE | 2016-07-25 08:48 | Consultation ---
DATE OF CONSULTATION: CARDIOLOGY CONSULTATION: REFERRING PHYSICIAN: Nash Galloway M.D. REASON FOR CONSULTATION: Management of hypertension and atrial fibrillation in the patient with chest pain. HISTORY OF PRESENT ILLNESS: The patient is a 81-year-old, lady with hypertension, diabetes, end-stage renal disease, on hemodialysis as well as chronic atrial fibrillation on Coumadin as well as history of right breast cancer status post radiation therapy and lumpectomy in 2010. The patient was admitted on 07/22/2016 with chest pain that sitting on a chair . The patient's pain was mostly on the right side of the chest and right breast and was described as sharp and diffuse. The patient also has shortness of breath with the episode. The patient was admitted and Cardiology consultation was obtained for further evaluation and management. At the time of my evaluation, the patient is getting hemodialysis. Denies any chest pain or shortness of breath. PAST MEDICAL HISTORY: 1. Hypertension. 2. Diabetes. 3. Paroxysmal atrial fibrillation. 4. End-stage renal disease. 5. History of breast cancer status post radiation therapy and lumpectomy in 2010. 6. hemorrhoids . 7. History of kidney cancer, removal of one kidney. MEDICATIONS: Per reconciliation but includes amiodarone, labetalol, and Coumadin. SOCIAL HISTORY: She lives at home. Does not smoke or drink alcohol. FAMILY HISTORY: Noncontributory. REVIEW OF SYSTEM: Thoroughly performed and was negative other than what was mentioned in the history of present illness. PHYSICAL EXAMINATION: VITAL SIGNS: Blood pressure is 140/74, pulse 54, respirations 18, and she is afebrile. HEAD AND NECK: Shows no JVD. LUNGS: Clear. CARDIOVASCULAR: Shows regular S1 and S2 with no gallop or murmur. ABDOMEN: Soft. EXTREMITIES: A 2+ bilateral pitting edema. LABORATORY DATA: Show white count 4.1, hemoglobin 13.1, hemoglobin 42, and platelet count of 145,000. Sodium 134, potassium 5.7, BUN 66, creatinine 7.4, and glucose 99. Troponin negative x3. BNP is 7650. ASSESSMENT AND PLAN: 1. Paroxysmal atrial fibrillation. She is currently in sinus rhythm. Continue amiodarone 200 mg daily and Coumadin 7.5 mg on Tuesday, Tuesday, Tuesday and 5 mg Tuesday ,, Tuesday, and Tuesday. 200 mg every 8 hours for rate control. 2. Hypertension stable on labetalol 200 mg every 8 hours. 3. End-stage renal disease, on hemodialysis. 4. Right middle lobe pneumonia on Levaquin. 5. Breast cancer. 6. Diabetes. 7. Mild bradycardia which the patient on amiodarone may need to adjust dose of for hypothyroidism. Thank you very much, Dr. Galloway, for allowing me to participate in the care of this patient. Please do not hesitate to contact me for any questions regarding my evaluation. Prashant Ramírez M.D. DR: Neelam JOB#: [id number] CC:
[2016-07-25 11:38] VITALS: BP 121/66
--- NOTE | 2016-07-25 12:48 | Consultation ---
Consult Note Assessment/Plan PCCM Full consult to follow. R hilar masslike consolidation. Agree with Stone for now will GET A PET/CT AT [facility] IN 2 WEEKS (CT PORTION WILL BE DONE WITH NAVIGATIONAL BRONCHOSCOPY PROTOCOL) to r/o neoplasm Patient can f/u with me after discharge and I will set this up. LISBETH DUNN M.D. Jul 25, 2016 12:48
--- NOTE | 2016-07-25 14:43 | Internal Med Progress Note ---
Subjective Date of Service: Jul 25, 2016 Physician Name Dacia Martínez Attending Physician Billy Emmanuel Current Medications Medications (Trade) Dose Ordered Sig/Donte Route PRN Reason Start Time Stop Time Status Last Admin Dose Admin Acetaminophen 650 mg 650 mg Q6H PRN ORAL Mild Pain 07/22/16 21:30 08/21/16 21:29 07/25/16 07:39 Amiodarone HCl (Cordarone) 200 mg DAILY ORAL 07/23/16 09:00 08/22/16 08:59 07/25/16 08:38 Cinacalcet (Sensipar) 30 mg DAILY ORAL 07/23/16 09:00 08/22/16 08:59 07/25/16 08:38 Dextrose (Dextrose 50%) STAT PRN IV Hypoglycemia 07/22/16 12:30 08/21/16 12:29 Docusate Sodium (Colace) 100 mg BID ORAL 07/22/16 18:00 08/21/16 17:59 07/25/16 08:38 Heparin Sodium (Porcine) (Heparin Sod 1000 units/ml 10ml) 2,000 unit ONCE IV 07/26/16 06:00 07/26/16 18:00 Labetalol HCl (Normodyne) 200 mg Q8HR ORAL 07/22/16 14:00 08/21/16 13:59 07/25/16 06:21 Levofloxacin 50 ml @ 50 mls/hr QOD@2100 IVPB 07/26/16 21:00 07/31/16 20:59 Levothyroxine Sodium (Synthroid) 88 mcg ACBREAKFAST ORAL 07/26/16 06:30 08/21/16 13:59 Sevelamer Carbonate (Renvela) 4,000 mg BEFORE MEALS ORAL 07/22/16 16:30 08/21/16 16:29 07/25/16 12:24 Sodium Chloride (Sodium Chloride 1000ml bag) 1,000 ml @ 500 mls/hr Q2H PRN IVLG sbp<90 during hd 07/26/16 06:00 07/26/16 18:00 Warfarin Sodium (Coumadin) 5 mg SuTuThSa@1700 ORAL 07/22/16 17:00 07/27/16 16:59 07/24/16 17:21 Warfarin Sodium (Coumadin) 7.5 mg MoWeFr@1700 ORAL 07/23/16 17:00 07/28/16 16:59 07/23/16 16:27 Allergies: Coded Allergies: No Known Allergies (Verified , 09/03/10) ROS Limited/Unobtainable: No Constitutional: Reports: no symptoms HEENT: Reports: no symptoms Cardiovascular: Reports: chest pain Respiratory: Reports: shortness of breath Gastrointestinal/Abdominal: Reports: no symptoms Genitourinary: Reports: no symptoms Neurologic/Psychiatric: Reports: no symptoms Subjective Cover for Int Chirag-Dr Vizcarra. Objective Last Vital Signs Date Time Temp Pulse Resp B/P Pulse Ox O2 Delivery O2 Flow Rate FiO2 07/25/16 11:38 97.8 63 18 121/66 98 Room Air 07/22/16 11:57 21 Laboratory Tests Test 07/25/16 05:55 White Blood Count 5.2 K/UL (4.8-10.8) Red Blood Count 3.91 M/UL (4.20-5.40) L Hemoglobin 11.5 G/DL (12.0-16.0) L Hematocrit 35.7 % (37.0-47.0) L Mean Corpuscular Volume 92 FL (80-99) Mean Corpuscular Hemoglobin 29.5 PG (27.0-31.0) Mean Corpuscular Hemoglobin Concent 32.3 G/DL (32.0-36.0) Red Cell Distribution Width 14.6 % (11.6-14.8) Platelet Count 130 K/UL (150-450) L Mean Platelet Volume 10.1 FL (6.5-10.1) Neutrophils (%) (Auto) 65.4 % (45.0-75.0) Lymphocytes (%) (Auto) 16.0 % (20.0-45.0) L Monocytes (%) (Auto) 14.5 % (1.0-10.0) H Eosinophils (%) (Auto) 2.6 % (0.0-3.0) Basophils (%) (Auto) 1.6 % (0.0-2.0) Prothrombin Time 23.8 SEC (9.30-11.50) H Prothromb Time International Ratio 2.3 (0.9-1.1) H Sodium Level 135 mEQ/L (135-145) Potassium Level 6.1 mEQ/L (3.4-4.9) *H Chloride Level 88 mEQ/L (98-107) L Carbon Dioxide Level 27 mEQ/L (20-30) Anion Gap 20 (5-15) H Blood Urea Nitrogen 73 mg/dL (7-23) H Creatinine 7.9 mg/dL (0.5-0.9) H Estimat Glomerular Filtration Rate mL/min (>60) Glucose Level 73 mg/dL (74-106) L Calcium Level 8.7 mg/dL (8.6-10.2) Pro-B-Type Natriuretic Peptide 8078 pg/mL (0-450) H Intake and Output 07/24/16 07/25/16 19:00 07:00 Intake Total 320 ml 600 ml Output Total 2800 ml Balance -2480 ml 600 ml Intake Oral 320 ml 500 ml IV Total 100 ml Output Hemodialysis UF 2800 ml # Voids 1 # Bowel Movements 3 3 Objective General Appearance: WD/WN, no apparent distress, alert EENT: PERRL/EOMI, normal ENT inspection, TMs normal Neck: non-tender, normal alignment, supple Cardiovascular: normal peripheral pulses, no gallop/murmur, no JVD, bradycardia , irregularly irregular Respiratory/Chest: chest wall non-tender, no accessory muscle use, decreased breath sounds, crackles/rales, rhonchi - bilaterally, expiratory wheezing Abdomen: normal bowel sounds, non tender, soft, no organomegaly, no mass Extremities: normal range of motion Neurologic: office assistant II-XII grossly normal, no motor/sensory deficits Skin: normal pigmentation, warm/dry Assessment/Plan Problem List: (1) Right middle lobe pneumonia Assessment & Plan: Start levaquin. Concerning in patient with history of breast cancer. Will need PET scan at [facility] and bronchoscopy for biopsy-See pulmonary consult (2) Breast cancer (3) ESRD (end stage renal disease) Assessment & Plan: see nephrology note; Hemodialysis today. (4) Chest pain (5) PAF (paroxysmal atrial fibrillation) Assessment & Plan: Cont amiodarone and coumadin (6) DM (diabetes mellitus) (7) HTN (hypertension) Assessment & Plan: Labetalol (8) Bradycardia Assessment & Plan: On amiodarone. See cardiology consult. (9) Hypothyroidism Assessment & Plan: cont levoxyl (10) Hyperkalemia Assessment & Plan: hemodialysis today-see nephrology note. Status: not improved DACIA MARTÍNEZ Jul 25, 2016 14:43
[2016-07-25 16:00] VITALS: BP 108/56
[2016-07-25] MEDS: Warfarin Sodium 5mg ORAL SCH (16:51)
[2016-07-25 20:00] VITALS: BP 144/53
[2016-07-25] MEDS ORDERED: Tums 500mg ORAL PRN (21:15)
[2016-07-26] VITALS (7 sets, daily range): BP systolic 149–195; BP diastolic 42–102
[2016-07-26] MEDS ORDERED: Heparin Sod 1000 units/ml 10ml IV SCH (06:00)
[2016-07-26 07:36] LABS: BASOPHILS % (AUTO) 1.1 % (0.0-2.0); EOSINOPHILS % (AUTO) 3.4 % (0.0-3.0); LYMPHOCYTES % (AUTO) 17.9 % (20.0-45.0); MEAN CORPUSCULAR HEMOGLOBIN 29.2 PG (27.0-31.0); MEAN CORPUSCULAR HGB CONC 30.8 G/DL (32.0-36.0); MEAN CORPUSCULAR VOLUME 95 FL (80-99); MONOCYTES % (AUTO) 15.1 % (1.0-10.0); NEUTROPHILS % (AUTO) 62.5 % (45.0-75.0); PLATELET COUNT 126 K/UL (150-450); RED BLOOD COUNT 3.98 M/UL (4.20-5.40); RED CELL DISTRIBUTION WIDTH 13.9 % (11.6-14.8)
[2016-07-26 07:54] LABS: ANION GAP 20 (5-15); CALCIUM 9.8 mg/dL (8.6-10.2); CARBON DIOXIDE 25 mEQ/L (20-30); CHLORIDE 88 mEQ/L (98-107); CREATININE 7.3 mg/dL (0.5-0.9); HEMOLYSIS 7; POTASSIUM 5.4 mEQ/L (3.4-4.9); SODIUM 133 mEQ/L (135-145)
[2016-07-26 08:01] LABS: INR 1.6 (0.9-1.1)
[2016-07-26] MEDS: Amiodarone 200mg tab ORAL SCH (08:41)
[2016-07-26] MEDS: Docusate 100mg cap ORAL SCH ×2 (08:41→17:49)
[2016-07-26] MEDS: Sensipar 30mg Tab ORAL SCH (08:41)
--- NOTE | 2016-07-26 09:58 | Consultation ---
DATE OF CONSULTATION: PULMONARY CONSULTATION CONSULTING PHYSICIAN: Vinicius Moore M.D. REASON FOR CONSULTATION: Abnormal chest radiograph. HISTORY OF PRESENT ILLNESS: The patient is a 81-year-old female with a history of end-stage renal disease on dialysis, atrial fibrillation on anticoagulation, diabetes, breast cancer status post XRT and lumpectomy in 2006 with breast fluid collection that is being followed by Dr. Cisneros, who presented with atypical chest pain over her right breast and some shortness of breath associated with it. She was admitted to the hospital. She was ruled out for ACS. She was noted to have a degree of pulmonary edema and dialysis was set up, but she has been stable on room air, afebrile, and vitals have otherwise been stable. Chest x-ray was done, which showed interstitial congestion and then a CT of the chest was done with contrast, which showed a fluid collection, which we were aware of as well as a mass like opacity at the right hilum, 2.1 cm with some surrounding nodularity. The patient was started empirically on Levaquin and today is day two of Levaquin. She denies any cough, wheezing, or hemoptysis. She does note some shortness of breath with mild PND. No orthopnea. No fevers, chills, headache, dizziness, nausea, vomiting, diarrhea, constipation, abdominal pain, or urinary complaints. PAST MEDICAL HISTORY: 1. Breast cancer status post ERT and lumpectomy in 2010. 2. Right breast fluid collection, being followed by Dr. Cisneros. 3. AFib on anticoagulation. 4. Diabetes. 5. History of hemorrhoids. 6. History of nephrectomy for renal cell carcinoma. PAST SURGICAL HISTORY: 1. Lumpectomy. 2. Nephrectomy. ALLERGIES: No known drug allergies. MEDICATIONS: Prior to admission, medications reviewed in CS link. SOCIAL HISTORY: No tobacco, alcohol, or drug use. FAMILY HISTORY: Noncontributory. REVIEW OF SYSTEMS: Negative other than history of present illness. PHYSICAL EXAMINATION: VITAL SIGNS: Temperature 97.5 degrees, pulse 60, blood pressure 123/46, respiratory rate 18, and saturating 97% on room air. GENERAL: She is a well-developed, well-nourished female, in no acute distress. Awake, alert, and oriented x3. HEENT: Normocephalic and atraumatic. Oropharynx with moist mucous membranes. NECK: Supple without lymphadenopathy or jugular venous distention. CHEST: Clear to auscultation bilaterally. Mild tenderness to the right breast. HEART: Regular rate and rhythm. ABDOMEN: Soft and nontender. EXTREMITIES: No cyanosis, clubbing, or edema. LABORATORY AND DIAGNOSTIC DATA: Ancillary data, sodium 135, potassium 6.1, chloride 87, bicarbonate 27, gap 20, BUN 73, creatinine 7.9, hemoglobin A1c 5, glucose 73, and calcium 8.7. ProBNP 8078. Troponins negative x4. White count 5.2, hemoglobin 11.5, and platelet count 138,000. INR is 2.3. Cultures pending. IMAGING: Chest x-ray with pulmonary congestion. CT of the chest 6 x 4 cm right breast fluid collection with some rim opacification smaller than prior study here, 2.1 cm perihilar posterior right-sided opacity with some surrounding nodularity, some atelectasis at the left base, and a posterior left upper lobe granuloma, cardiomegaly is noted, and enlarged precarinal node is seen. Compressive atelectasis is seen at the lung bases as well and multinodular left thyroid. L1 compression fracture is seen as well at the age indeterminate. ASSESSMENT: The patient is a 81-year-old female with a history of right breast cancer status post lumpectomy and ERT in 2010 with a right breast fluid collection, being followed by Dr. Cisneros, diabetes, AFib on anticoagulation, presenting with atypical chest pain status post rule out ACS. CT of the chest was done, which showed right hilar consolidation, it is 2.1 cm and mass-like with some surrounding nodularity. The patient was started on Levaquin, today is day two for empiric treatment of community-acquired pneumonia. With respect to this consolidation, it is concerning for possible pulmonary malignancy or metastatic process, but it may represent a pneumonic process as well. The patient has appropriately been started on community-acquired coverage. At this point, I think the best course of action is to complete the course of therapy for community-acquired pneumonia and obtain a PET-CT at [facility] and in two weeks. The CT portion will be done with navigational bronchoscopy protocol and if at that point, there is a persistent lesion, we will then proceed with planning a biopsy to rule out neoplasm. The patient can follow up with me after discharge and we will set this up. I have given her my card and discussed the plan with her as well as with the treatment team. PROBLEM LIST: 1. Right perihilar mass-like consolidation. 2. Atypical chest pain status post rule out acute coronary syndrome. 3. Right breast cancer status post lumpectomy and external radiation therapy in 2010. 4. Right breast fluid collection, being followed up by Dr. Cisneros. 5. Atrial fibrillation on anticoagulation. 6. Diabetes. 7. History of renal cell carcinoma status post nephrectomy. 8. End-stage renal disease, on hemodialysis. 9. Hypothyroidism treatment. TREATMENT PLAN: 1. Optimize pulmonary hygiene, mobilize as tolerated. 2. Continue Levaquin (today is day two) plus for community-acquired pneumonia coverage. 3. We will obtain a head CT in 2 weeks at [facility]. The CT portion will be done with navigational bronchoscopy protocol. 4. The patient can follow up with me in 1 week. 5. Continue anticoagulation, which serves as DVT prophylaxis as well. 6. Aspiration precautions. 7. Plan was discussed in detail with the patient who agrees with follow up and imaging. She understands the risk of potential neoplastic process and the danger of leaving it undiagnosed. Dr. Anderson and Dr. Emmanuel, thank you for allowing me to assist in the care of your patient. If I may be of any assistance in the future, please do not hesitate to ask. Vinicius Moore M.D. DR: BRITTNEY JOB#: [id number] CC:
--- NOTE | 2016-07-26 16:01 | Cardiac Electrophysiology PN ---
Assessment/Plan Assessment/Plan 1. Paroxysmal atrial fibrillation. In sinus rhythm on amiodarone 200 mg daily, labetalol 200 mg every 8 hours and Coumadin. 2. Hypertension stable on labetalol 200 mg every 8 hours. 3. End-stage renal disease, on hemodialysis. 4. Right middle lobe pneumonia on Levaquin. 5. Breast cancer. 6. Diabetes. DW RN Subjective Subjective Feeling better. Legs still swollen. No chest pain or SOB. Objective Last 24 Hour Vital Signs Date Time Temp Pulse Resp B/P Pulse Ox O2 Delivery O2 Flow Rate FiO2 07/26/16 13:16 60 158/108 07/26/16 12:00 98.6 59 19 158/102 97 Room Air 07/26/16 08:00 57 07/26/16 08:00 97.8 58 20 149/59 97 Room Air 07/26/16 07:45 98.5 07/26/16 06:29 62 132/75 07/26/16 04:15 154/73 07/26/16 04:05 98.5 62 19 179/75 94 Room Air 07/26/16 04:00 58 07/26/16 00:09 98.6 68 19 155/78 97 Room Air 07/26/16 00:00 58 07/25/16 21:55 63 144/53 07/25/16 20:00 97.5 63 27 144/53 97 07/25/16 20:00 59 07/25/16 16:00 97.9 68 16 108/56 97 Room Air 07/25/16 16:00 65 Intake and Output 07/25/16 07/26/16 19:00 07:00 Intake Total 375 ml Output Total 2300 ml Balance -1925 ml Intake Oral 375 ml Output Hemodialysis UF 2300 ml # Voids 1 # Bowel Movements 1 2 Laboratory Tests Test 07/26/16 06:20 White Blood Count 5.0 K/UL (4.8-10.8) Red Blood Count 3.98 M/UL (4.20-5.40) L Hemoglobin 11.6 G/DL (12.0-16.0) L Hematocrit 37.7 % (37.0-47.0) Mean Corpuscular Volume 95 FL (80-99) Mean Corpuscular Hemoglobin 29.2 PG (27.0-31.0) Mean Corpuscular Hemoglobin Concent 30.8 G/DL (32.0-36.0) L Red Cell Distribution Width 13.9 % (11.6-14.8) Platelet Count 126 K/UL (150-450) L Mean Platelet Volume 13.0 FL (6.5-10.1) H Neutrophils (%) (Auto) 62.5 % (45.0-75.0) Lymphocytes (%) (Auto) 17.9 % (20.0-45.0) L Monocytes (%) (Auto) 15.1 % (1.0-10.0) H Eosinophils (%) (Auto) 3.4 % (0.0-3.0) H Basophils (%) (Auto) 1.1 % (0.0-2.0) Prothrombin Time 17.0 SEC (9.30-11.50) H Prothromb Time International Ratio 1.6 (0.9-1.1) H Sodium Level 133 mEQ/L (135-145) L Potassium Level 5.4 mEQ/L (3.4-4.9) H Chloride Level 88 mEQ/L (98-107) L Carbon Dioxide Level 25 mEQ/L (20-30) Anion Gap 20 (5-15) H Blood Urea Nitrogen 61 mg/dL (7-23) H Creatinine 7.3 mg/dL (0.5-0.9) H Estimat Glomerular Filtration Rate mL/min (>60) Glucose Level 82 mg/dL (74-106) Calcium Level 9.8 mg/dL (8.6-10.2) Microbiology Date/Time Source Procedure Growth Status 07/24/16 17:30 Nasal Nares MRSA Culture - Final NO METHICILLIN RESISTANT STAPH AUREUS... Complete 07/24/16 17:30 Rectum VRE Culture - Final NO VANCOMYCIN RESISTANT ENTEROCOCCUS ... Complete Objective HEAD AND NECK: Shows no JVD. LUNGS: Clear. CARDIOVASCULAR: Regular S1 and S2 with no gallop or murmur. ABDOMEN: Soft. EXTREMITIES: 2+ bilateral pitting edema. ZEKE HAHN Jul 26, 2016 16:01
[2016-07-26] MEDS: Warfarin Sodium 7.5mg ORAL SCH (16:19)
--- NOTE | 2016-07-26 16:57 | Discharge Summary ---
Discharge Summary Hospital Course Date of Admission Jul 22, 2016 at 09:22 Date of Discharge Admitting Diagnosis CHEST PAIN HPI Jess Church is a 81 year old female who was admitted on Jul 22, 2016 at 09: 22 for Chest Pain d/c summary dictated #[id number] Discharge Condition Upon Discharge: stable Discharge Disposition Patient was discharged to HOME Discharge Diagnoses: BENJI GONZALEZ M.D. Jul 26, 2016 16:57
--- NOTE | 2016-07-26 17:03 | Discharge Instructions ---
Discharge Instructions Discharge Instructions Follow up with: PCP Diet: renal (80g protein, 2GM) Resume Normal Activity?: Yes Special Instructions f/u in 2 weeks at [facility] FOR PET SCAN WITH [facility] CALL DR DUNN [phone] For Congestive Heart Failure Reminder Report to your physician any weight gain of 5 pounds or more in one week. BENJI GONZALEZ M.D. Jul 26, 2016 17:03
[2016-07-26] MEDS ORDERED: NS 275ml ONE (17:58)
[2016-07-26] MEDS ORDERED: Tubing IV Secondary IV ONE (17:58)
--- NOTE | 2016-07-26 18:13 | Nephrology Progress Note ---
Assessment/Plan Problem List: (1) ESRD (end stage renal disease) (2) HTN (hypertension) (3) DM (diabetes mellitus) (4) Hyperkalemia (5) Chest pain (6) ACS (acute coronary syndrome) Plan Discuss with Dr Zackery Alba today Subjective Subjective All noted Objective Objective Last 24 Hour Vital Signs Date Time Temp Pulse Resp B/P Pulse Ox O2 Delivery O2 Flow Rate FiO2 07/26/16 16:00 97.4 60 20 160/42 97 Room Air 07/26/16 16:00 62 07/26/16 13:16 60 158/108 07/26/16 12:00 98.6 59 19 158/102 97 Room Air 07/26/16 08:00 57 07/26/16 08:00 97.8 58 20 149/59 97 Room Air 07/26/16 07:45 98.5 07/26/16 06:29 62 132/75 07/26/16 04:15 154/73 07/26/16 04:05 98.5 62 19 179/75 94 Room Air 07/26/16 04:00 58 07/26/16 00:09 98.6 68 19 155/78 97 Room Air 07/26/16 00:00 58 07/25/16 21:55 63 144/53 07/25/16 20:00 97.5 63 27 144/53 97 07/25/16 20:00 59 Intake and Output 07/25/16 07/26/16 19:00 07:00 Intake Total 375 ml Output Total 2300 ml Balance -1925 ml Intake Oral 375 ml Output Hemodialysis UF 2300 ml # Voids 1 # Bowel Movements 1 2 Laboratory Tests 07/26/16 06:20: White Blood Count 5.0, Red Blood Count 3.98L, Hemoglobin 11.6L, Hematocrit 37.7 , Mean Corpuscular Volume 95, Mean Corpuscular Hemoglobin 29.2, Mean Corpuscular Hemoglobin Concent 30.8L, Red Cell Distribution Width 13.9, Platelet Count 126L, Mean Platelet Volume 13.0H, Neutrophils (%) (Auto) 62.5, Lymphocytes (%) (Auto) 17.9L, Monocytes (%) (Auto) 15.1H, Eosinophils (%) (Auto ) 3.4H, Basophils (%) (Auto) 1.1, Prothrombin Time 17.0H, Prothromb Time International Ratio 1.6H, Sodium Level 133L, Potassium Level 5.4H, Chloride Level 88L, Carbon Dioxide Level 25, Anion Gap 20H, Blood Urea Nitrogen 61H, Creatinine 7.3H, Estimat Glomerular Filtration Rate , Glucose Level 82, Calcium Level 9.8 Height (Feet): 5 Height (Inches): 6.00 Weight (Pounds): 195 Cardiovascular: normal rate Respiratory/Chest: lungs clear Extremities: moderate edema THOM CASTILLO Jul 26, 2016 18:13
[2016-07-26] MEDS ORDERED: Levofloxacin 250mg/D5W 50ml IVPB SCH (21:00)
--- NOTE | 2016-07-27 03:58 | Discharge Summary ---
DATE OF ADMISSION: 07/22/2016 DATE OF DISCHARGE: 07/26/2016 REASON FOR ADMISSION: Chest pain. PROCEDURES DONE HERE: None. SIGNIFICANT FINDINGS: CT chest on 07/23/2016 showing a right breast fluid collection consistent with seroma as well as a large mass-like opacity posterior of the right pulmonary yanely measuring 2 cm, concerning for neoplasm as well as L1 vertebral body compression fracture. BRIEF HOSPITAL COURSE AND SUMMARY: This is a pleasant 81-year-old, female with history of end-stage renal disease, on hemodialysis, atrial fibrillation on Coumadin, diabetes, right breast cancer status post radiation and lumpectomy with subsequent seroma, has drainage of her right breast seroma every week or so, who presented here for right chest pain. She had two troponins that were negative. She had a CAT scan here showing a right-sided chest hilar 2 cm mass concerning for neoplasm as well as right breast seroma. The patient was seen by Dr. Moore, who agree that her right perihilar mass is concerning in light of her history of breast cancer. We are starting her on a seven-day course of Levaquin for community-acquired pneumonia. The patient will need a PET/CT scan at [facility] in two weeks. The CT portion will be done with navigational bronchoscopy protocol by Dr. Moore and if there is a persistent lesion, we can do a biopsy to rule out neoplasm. DISCHARGE CONDITION: Stable. DISCHARGE INSTRUCTIONS: The patient to follow up with Dr. Av Lopez. The patient to follow up with Dr. Moore in two weeks. The patient to return to the hospital for worsening condition or symptoms. The patient to ambulate as tolerated. The patient to return to hospital for chest pain. DISCHARGE DIAGNOSES: 1. Right perihilar mass-like consolidation concerning for neoplasm versus infiltrate. 2. Atypical chest pain. 3. 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 4. Right breast seroma, followed by Dr. Cisneros. 5. Atrial fibrillation on anticoagulation. 6. Diabetes. 7. History of renal cell carcinoma. 8. End-stage renal disease, on hemodialysis. 9. Hypothyroidism. TIME SPENT: Time spent on dictation is greater than 35 minutes. Marquis Vizcarra MD DR: ELIS JOB#: [id number] CC:
--- NOTE | 2016-07-27 11:27 | Cardiology Report ---
APPROVED REPORT EXAM: Two-dimensional and M-mode echocardiogram with Doppler and color Doppler. INDICATION Hypertensive heart disease M-Mode DIMENSIONS IVSd1.8 (0.7-1.1cm)Left Atrium (MM)4.1 (1.6-4.0cm) LVDd3.8 (3.5-5.6cm)Aortic Root3.3 (2.0-3.7cm) PWd2.0 (0.7-1.1cm)Aortic Cusp Exc.1.6 (1.5-2.0cm) LVDs2.1 (2.5-4.0cm) PWs1.5 cm Normal left ventricular chamber size, systolic function and wall motion. Left ventricular ejection fraction estimated to be 55-60 %. Moderate left ventricular hypertrophy. No evidence of pericardial fat or effusion. Moderate left atrial enlargement by 2D. Mild right atrial enlargement by 2D. Focal aortic valve sclerosis with adequate cusp excursion Moderatly thickened mitral valve leaflets with normal excursion. Moderate mitral annulus and aortic root calcification. Pulmonic valve not well visualized. Normal tricuspid valve structure. IVC is normal in size with physiologic collapse. A color flow and spectral Doppler study was performed and revealed: No aortic regurgitation. Peak aortic valve gradient of 30mmHg and a mean of 13mmHg. Aortic valve area 1.6cm2 calculated by continuity equation. Moderate mitral regurgitation. Left ventricular diastolic dysfunction grade 1. Moderate tricuspid regurgitation. Tricuspid systolic velocities suggests peak right ventricular systolic pressure of 52 mmHg Consistent with severe pulmonary hypertension. Pulmonic regurgitation present.
== END 2016-07-26 22:26 | disposition home or self-care (01) | DRG 193 ==
LOC: ENRESERVDT → ENRESERVTM → ENRESERV → EDSEX 08:14 → EDBD 08:14 → EMR 08:51 → 2W 09:22 → EDBEDREQ 12:06 → 2E 07-24 06:27
PROC: 5A1D00Z (ICD-10-PCS; principal; 2016-07-22)
DX: J18.9 Pneumonia, unspecified organism (principal); N18.6 End stage renal disease; I12.0 Hypertensive chronic kidney disease with stage 5 chronic kidney disease or end stage renal disease; I50.9 Heart failure, unspecified; R00.1 Bradycardia, unspecified; I48.0 Paroxysmal atrial fibrillation; R07.89 Other chest pain; Z85.3 Personal history of malignant neoplasm of breast; E11.9 Type 2 diabetes mellitus without complications; I10 Essential (primary) hypertension; E03.9 Hypothyroidism, unspecified; Z99.2 Dependence on renal dialysis; N64.89 Other specified disorders of breast; E87.5 Hyperkalemia; Z79.01 Long term (current) use of anticoagulants; Z92.3 Personal history of irradiation; Z85.528 Personal history of other malignant neoplasm of kidney; Z90.5 Acquired absence of kidney; R91.8 Other nonspecific abnormal finding of lung field
CPT/HCPCS: 36415; 71010; 71260; 80048; 80053; 80061; 82550; 82553; 83036; 83880; 84484; 85025; 85610; 87081; 93005; 93306; 94640

== ENCOUNTER 2016-08-04 05:50 | Inpatient (IN) | payer MEDICARE, OTHER ==
[2016-08-04] VITALS (7 sets, daily range): BP systolic 105–132; BP diastolic 51–62
[~2016-08-04] VITALS: Ht 172.7 cm; Wt 90.7 kg
[~2016-08-04 05:50] MED LIST changes: +LABETALOL HCL100 MG ORAL; +WARFARIN SODIUM5 MG ORAL
[2016-08-04 06:34] LABS: BASOPHILS % (AUTO) 0.9 % (0.0-2.0); EOSINOPHILS % (AUTO) 2.1 % (0.0-3.0); LYMPHOCYTES % (AUTO) 10.7 % (20.0-45.0); MEAN CORPUSCULAR HEMOGLOBIN 29.4 PG (27.0-31.0); MEAN CORPUSCULAR VOLUME 95 FL (80-99); MEAN PLATELET VOLUME 7.6 FL (6.5-10.1); MONOCYTES % (AUTO) 13.5 % (1.0-10.0); NEUTROPHILS % (AUTO) 72.8 % (45.0-75.0); PLATELET COUNT 175 K/UL (150-450); RED BLOOD COUNT 4.07 M/UL (4.20-5.40); RED CELL DISTRIBUTION WIDTH 13.7 % (11.6-14.8); WHITE BLOOD COUNT 6.3 K/UL (4.8-10.8)
[2016-08-04 06:48] LABS: ALANINE AMINOTRANSFERASE 9 U/L (3-33); ALBUMIN/GLOBULIN RATIO 1.1 (1.0-2.7); ANION GAP 20 (5-15); ASPARTATE AMINO TRANSFERASE 22 U/L (5-40); CALCIUM 9.3 mg/dL (8.6-10.2); CARBON DIOXIDE 24 mEQ/L (20-30); CHLORIDE 86 mEQ/L (98-107); CREATININE 7.3 mg/dL (0.5-0.9); HEMOLYSIS 3; POTASSIUM 5.1 mEQ/L (3.4-4.9); SODIUM 130 mEQ/L (135-145); TOTAL PROTEIN 7.8 g/dL (6.6-8.7)
[2016-08-04 07:00] LABS: TROPONIN I < 0.30 ng/mL (<=0.30)
[2016-08-04] MEDS ORDERED: Morphine Sulfate 2mg/ml Inj IVP ONE (07:45)
--- NOTE | 2016-08-04 08:04 | Emergency Room Report ---
History of Present Illness General Chief Complaint: Gastrointestinal Bleed Source: Patient, EMS Present Illness HPI 81-year-old female presents to ED for evaluation. Patient states that starting this morning she noticed some rectal bleeding. Notes some pain. I've out of 10. Throbbing. Localized to rectal area. Nonradiating. No aggravating or relieving factors. Patient has prior history of lower GI bleeding. Patient is dialysis patient. Denies fevers or chills. Denies chest pain or shortness of breath. Denies abdominal pain. Denies any other associated symptoms Allergies: Coded Allergies: No Known Allergies (Verified , 08/04/16) Patient History Past Medical History: DM, HTN, psych hx, renal disease, dialysis Past Surgical History: none Pertinent Family History: none Social History: Denies: alcohol use, drug use, smoking Last Menstrual Period: n/a Now: No Immunizations: UTD Reviewed Nursing Documentation: PMH: Agreed, PSxH: Agreed Nursing Documentation-PMH Past Medical History: No History, Except For Hx Hypertension: Yes Hx Pacemaker: No Hx Asthma: No Hx COPD: No Hx Diabetes: Yes Hx Cancer: Yes - Breast cx Hx Gastrointestinal Problems: No Hx Dialysis: Yes - ckd, left forearm shunt History Of Psychiatric Problem: Yes Hx Neurological Problems: No Hx Cerebrovascular Accident: No Hx Seizures: No Review of Systems All Other Systems: negative except mentioned in HPI Physical Exam Vital Signs Date Time Temp Pulse Resp B/P Pulse Ox O2 Delivery O2 Flow Rate FiO2 08/04/16 05:45 97.5 60 18 95/46 99 Room Air 08/04/16 06:39 1.0 Sp02 EP Interpretation: reviewed, normal General Appearance: no apparent distress, alert, GCS 15, non-toxic Head: normocephalic Eyes: bilateral eye PERRL, bilateral eye normal inspection ENT: hearing grossly normal, normal pharynx, no angioedema, normal voice Neck: full range of motion, supple/symm/no masses Respiratory: chest non-tender, lungs clear, normal breath sounds, speaking full sentences Cardiovascular #1: regular rate, rhythm, no edema Gastrointestinal: normal bowel sounds, non tender, soft, non-distended, no guarding, no rebound Rectal: blood streaked stool, hemorrhoids Genitourinary: no CVA tenderness Musculoskeletal: normal inspection Neurologic: alert, oriented x3, responsive, motor strength/tone normal, sensory intact, speech normal Psychiatric: normal inspection Skin: normal inspection Lymphatic: normal inspection Medical Decision Making Diagnostic Impression: Primary Impression: LGI bleed Additional Impressions: ESRD (end stage renal disease) Hyperkalemia, diminished renal excretion ER Course Hospital Course 81-year-old F presents to ED with rectal bleeding Differential diagnoses include: UGIB, LGIB, hemorrhoids Clinical course Patient placed on stretcher. 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 After initial history and physical I ordered labs, IV fluids, UA Labs - no leukocytosis, Hb/Hct stable. BUN/Cr elevated. K 5.[address] Castillo and he agreed to accept the patient to his service for further care and support I feel this is a highly complex case requiring extensive working including EKG/ Rhythm strip, Xray/CT/US, Blood/urine lab work, repeat exams while in ED, and administration of strong opiates/narcotics for pain control, admission to hospital or close patient follow up. Diagnosis - LGIB, ESRD, hyperkalemia Patient admitted to floor in serious condition Labs Test 08/04/16 06:20 White Blood Count 6.3 K/UL (4.8-10.8) Red Blood Count 4.07 M/UL (4.20-5.40) Hemoglobin 12.0 G/DL (12.0-16.0) Hematocrit 38.6 % (37.0-47.0) Mean Corpuscular Volume 95 FL (80-99) Mean Corpuscular Hemoglobin 29.4 PG (27.0-31.0) Mean Corpuscular Hemoglobin Concent 31.0 G/DL (32.0-36.0) Red Cell Distribution Width 13.7 % (11.6-14.8) Platelet Count 175 K/UL (150-450) Mean Platelet Volume 7.6 FL (6.5-10.1) Neutrophils (%) (Auto) 72.8 % (45.0-75.0) Lymphocytes (%) (Auto) 10.7 % (20.0-45.0) Monocytes (%) (Auto) 13.5 % (1.0-10.0) Eosinophils (%) (Auto) 2.1 % (0.0-3.0) Basophils (%) (Auto) 0.9 % (0.0-2.0) Sodium Level 130 mEQ/L (135-145) Potassium Level 5.1 mEQ/L (3.4-4.9) Chloride Level 86 mEQ/L (98-107) Carbon Dioxide Level 24 mEQ/L (20-30) Anion Gap 20 (5-15) Blood Urea Nitrogen 53 mg/dL (7-23) Creatinine 7.3 mg/dL (0.5-0.9) Estimat Glomerular Filtration Rate mL/min (>60) Glucose Level 82 mg/dL (74-106) Calcium Level 9.3 mg/dL (8.6-10.2) Total Bilirubin 0.4 mg/dL (0.0-1.2) Aspartate Amino Transf (AST/SGOT) 22 U/L (5-40) Alanine Aminotransferase (ALT/SGPT) 9 U/L (3-33) Alkaline Phosphatase 137 U/L (35-104) Total Creatine Kinase 105 U/L (26-140) Troponin I < 0.30 ng/mL (<=0.30) Total Protein 7.8 g/dL (6.6-8.7) Albumin 4.1 g/dL (3.5-5.2) Globulin 3.7 g/dL Albumin/Globulin Ratio 1.1 (1.0-2.7) EKG Diagnostic Results Rate: normal Rhythm: NSR ST Segments: no acute changes ASA given to the pt in ED: No Rhythm Strip Diag. Results EP Interpretation: yes Rhythm: NSR, no PVC's, no ectopy Chest X-Ray Diagnostic Results EP Interpretation: Yes Findings: no consolidation, no effusion, no pneumothorax, no acute cardiopulmonary disease, other - cardiomegaly Number of Views: 1 Last Vital Signs Date Time Temp Pulse Resp B/P Pulse Ox O2 Delivery O2 Flow Rate FiO2 08/04/16 07:51 97.5 61 18 105/53 100 Nasal Cannula 1.0 Status: improved Disposition: ADMITTED INPATIENT Condition: Serious Referrals: THOM CASTILLO (PCP) LATOYA SIU M.D. Aug 04, 2016 08:04
[2016-08-04] MEDS ORDERED: Morphine Sulfate 4mg/ml Inj IVP ONE (08:45)
[2016-08-04] MEDS ORDERED: Prep H Ointment 57gm RECTAL ONE (10:30)
[2016-08-04 10:36] LABS: CKMB 4.9 ng/mL (< 3.8)
--- NOTE | 2016-08-04 11:16 | Diagnostic Imaging Report ---
Indication: Chest Pain Comparison: 07/22/16 A single view chest radiograph was obtained. Findings: No definite infiltrate or pulmonary vascular congestion identified. The heart is enlarged. The aorta is mildly enlarged consistent with atherosclerotic vascular disease. The bones are osteopenic. Right costophrenic angle is blunted. Impression: Right pleural effusion versus pleural thickening.
--- NOTE | 2016-08-04 13:42 | History & Physical ---
History and Physical History & Physicial HP dictated # [id number] THOM CASTILLO Aug 04, 2016 13:42
[2016-08-04] MEDS: Sensipar 30mg Tab ORAL SCH (14:47)
[2016-08-04] MEDS: Amiodarone 200mg tab ORAL SCH (14:48)
[2016-08-04] MEDS ORDERED: Sorbitol Solution UD 30ml ORAL PRN (15:00)
[2016-08-04] MEDS ORDERED: Morphine Sulfate 2mg/ml Inj IVP PRN (15:00)
[2016-08-04 16:11] LABS: INR 2.2 (0.9-1.1); PROTHROMBIN TIME 22.9 SEC (9.30-11.50)
[2016-08-04] MEDS: Docusate 100mg cap ORAL SCH (17:41)
[2016-08-04] MEDS ORDERED: COUMADIN5 MG ORAL (18:48)
[2016-08-04] MEDS ORDERED: WARFARIN SODIU7.5 MG ORAL (18:48)
[2016-08-04] MEDS ORDERED: Warfarin Sod 3 MG, Warfarin Sod 4 MG ORAL SCH ×2 (19:30)
--- NOTE | 2016-08-04 20:27 | History and Physical Report ---
DATE OF ADMISSION: 08/04/2016 CHIEF COMPLAINT: Generalized body aches and blood per rectum. HISTORY OF PRESENT ILLNESS: This is a 81-year-old female with a history of end-stage renal disease, on hemodialysis every Tuesday, , and Tuesday. The patient went to her dialysis yesterday and she states that during her 4 hours of dialysis, she had generalized body aches, especially on her back and they kept her giving Tylenol and it really did not help. She went home and also noticed that she had bright red blood per rectum and finally she was brought into the emergency room. The patient was admitted with the diagnosis of lower gastrointestinal bleed. PAST MEDICAL HISTORY: Includes history of diabetes mellitus, atrial fibrillation, history of breast cancer, status post lumpectomy, and history of gastrointestinal stromal tumor. The patient has a dialysis access to left arm. MEDICATIONS: Reviewed. ALLERGIES: No known drug allergies. SOCIAL HISTORY: No history of smoking or alcohol abuse. REVIEW OF SYSTEMS: As above. PHYSICAL EXAMINATION: GENERAL: The patient is a moderately obese female, in no acute distress. VITAL SIGNS: Blood pressure is 95/46, pulse 60, temperature 97.5, and respiratory rate is 18. HEENT: [place] conjunctivae. Anicteric sclerae. NECK: Supple. LUNGS: Clear to auscultation. HEART: S1 and S2 without murmurs or rubs. ABDOMEN: Soft and nontender. EXTREMITIES: Bilateral pedal edema. LABORATORY FINDINGS: The CBC shows a WBC of 6.3, hematocrit 38.6, hemoglobin 12, and platelets 175,000. The chemistry panel shows a serum sodium of 130, potassium 5.1, chloride 86, CO2 of 24, BUN is 53, and creatinine 7.3. Albumin is 4.1. ASSESSMENT: This is a 81-year-old female, who is admitted with severe generalized body aches and she has also blood per rectum. The bleeding is likely from the hemorrhoids. The patient is also taking Coumadin for her atrial fibrillation, which increased the risk. However, the patient is not anemic at this point and does not need to be transfused. The patient's blood pressure is on the low side and she has a lot of edema, so that poses also a problem during dialysis. PLAN: The patient will be seen by retail merchandiser, Dr. Youssef. Laboratories will be followed closely. The patient will be dialyzed tomorrow. Coumadin will be continued for now per pharmacy. I will hold off the blood pressure medications until the patient is at dry weight. Billy Emmanuel M.D. DR: DEVON JOB#: [id number] CC:
[2016-08-04] MEDS ORDERED: Zolpidem 5mg tab ORAL PRN (21:00)
[2016-08-05] VITALS (8 sets, daily range): BP systolic 97–128; BP diastolic 36–84
[2016-08-05] MEDS: Morphine Sulfate 4mg/ml Inj IVP PRN ×2 (05:44→11:39)
[2016-08-05 07:40] LABS: BASOPHILS % (AUTO) 0.7 % (0.0-2.0); EOSINOPHILS % (AUTO) 1.9 % (0.0-3.0); LYMPHOCYTES % (AUTO) 13.4 % (20.0-45.0); MEAN CORPUSCULAR HEMOGLOBIN 29.8 PG (27.0-31.0); MEAN CORPUSCULAR HGB CONC 32.3 G/DL (32.0-36.0); MEAN CORPUSCULAR VOLUME 92 FL (80-99); MONOCYTES % (AUTO) 16.4 % (1.0-10.0); NEUTROPHILS % (AUTO) 67.6 % (45.0-75.0); PLATELET COUNT 154 K/UL (150-450); RED BLOOD COUNT 3.55 M/UL (4.20-5.40); RED CELL DISTRIBUTION WIDTH 13.9 % (11.6-14.8)
[2016-08-05 07:47] LABS: HEMOGLOBIN A1C 5.1 % (< 6.0)
[2016-08-05 08:11] LABS: ALANINE AMINOTRANSFERASE 89 U/L (3-33); ALBUMIN/GLOBULIN RATIO 1.1 (1.0-2.7); ANION GAP 22 (5-15); ASPARTATE AMINO TRANSFERASE 149 U/L (5-40); CALCIUM 8.9 mg/dL (8.6-10.2); CARBON DIOXIDE 21 mEQ/L (20-30); CHLORIDE 89 mEQ/L (98-107); CHOLESTEROL 126 mg/dL (< 200); CHOLESTEROL/HDL RATIO 2.5 (3.3-4.4); CREATININE 8.7 mg/dL (0.5-0.9); HEMOLYSIS 4; LDL CHOLESTEROL (CALC.) 64 mg/dL (60-99); POTASSIUM 5.7 mEQ/L (3.4-4.9); SODIUM 132 mEQ/L (135-145); TOTAL PROTEIN 6.6 g/dL (6.6-8.7)
[2016-08-05] MEDS: Amiodarone 200mg tab ORAL SCH (09:00)
[2016-08-05 09:19] LABS: INR 1.6 (0.9-1.1); PROTHROMBIN TIME 16.9 SEC (9.30-11.50)
[2016-08-05] MEDS: Docusate 100mg cap ORAL SCH ×2 (09:29→17:17)
[2016-08-05] MEDS: Sensipar 30mg Tab ORAL SCH (09:29)
--- NOTE | 2016-08-05 09:35 | Nephrology Progress Note ---
Assessment/Plan Problem List: (1) ESRD (end stage renal disease) (2) Rectal bleed (3) HTN (hypertension) (4) DM (diabetes mellitus) (5) PAF (paroxysmal atrial fibrillation) (6) Hypothyroidism (7) Lung mass Plan HD as tolerated GI consult Discussed with RN Subjective Subjective Pp was seen on dialysis Objective Objective Last 24 Hour Vital Signs Date Time Temp Pulse Resp B/P Pulse Ox O2 Delivery O2 Flow Rate FiO2 08/05/16 08:23 98.2 68 20 119/53 98 Room Air 08/05/16 04:00 97.7 59 18 113/57 95 Room Air 08/05/16 00:00 97.0 61 19 115/61 95 Room Air 08/04/16 20:00 98.1 60 19 124/62 94 Room Air 08/04/16 16:00 98.3 68 19 117/55 96 Room Air 08/04/16 12:10 97.9 61 21 107/52 92 Nasal Cannula 2.0 08/04/16 11:48 73 16 132/56 100 Nasal Cannula 08/04/16 11:42 97.5 73 16 132/56 100 Nasal Cannula 2.0 08/04/16 09:36 97.5 Intake and Output 08/04/16 08/05/16 19:00 07:00 Intake Total 250 ml 975 ml Balance 250 ml 975 ml Intake Oral 250 ml 975 ml # Voids 4 # Bowel Movements 1 1 Laboratory Tests 08/04/16 15:35: Prothrombin Time 22.9H, Prothromb Time International Ratio 2.2H 08/05/16 05:10: Prothrombin Time 16.9H, Prothromb Time International Ratio 1.6H, White Blood Count 6.0, Red Blood Count 3.55L, Hemoglobin 10.6L, Hematocrit 32.8L, Mean Corpuscular Volume 92, Mean Corpuscular Hemoglobin 29.8, Mean Corpuscular Hemoglobin Concent 32.3, Red Cell Distribution Width 13.9, Platelet Count 154, Mean Platelet Volume 8.0, Neutrophils (%) (Auto) 67.6, Lymphocytes (%) (Auto) 13.4L, Monocytes (%) (Auto) 16.4H, Eosinophils (%) (Auto) 1.9, Basophils (%) ( Auto) 0.7, Sodium Level 132L, Potassium Level 5.7H, Chloride Level 89L, Carbon Dioxide Level 21, Anion Gap 22H, Blood Urea Nitrogen 69H, Creatinine 8.7H, Estimat Glomerular Filtration Rate , Glucose Level 65L, Hemoglobin A1c 5.1, Calcium Level 8.9, Phosphorus Level 6.6H, Total Bilirubin 0.4, Aspartate Amino Transf (AST/SGOT) 149H, Alanine Aminotransferase (ALT/SGPT) 89H, Alkaline Phosphatase 269H, Total Protein 6.6, Albumin 3.5, Globulin 3.1, Albumin/ Globulin Ratio 1.1, Triglycerides Level 59, Cholesterol Level 126, LDL Cholesterol 64, HDL Cholesterol 50, Cholesterol/HDL Ratio 2.5L Height (Feet): 5 Height (Inches): 8.00 Weight (Pounds): 200 Cardiovascular: normal rate Respiratory/Chest: lungs clear Extremities: moderate edema THOM CASTILLO Aug 05, 2016 09:35
--- NOTE | 2016-08-05 11:37 | General Progress Note ---
Assessment/Plan Assessment/Plan GI CONSULT Assessment - BRBPR - anemia - abnormal LFT - h/o GIST - ESRD - a fib - coumadin Recommendations - Hold coumadin - serial CBC - EGD/Colon in am - check abd u/s - check hepatitis serologies Thank you Susan Youssef MD Subjective Allergies: Coded Allergies: No Known Allergies (Verified , 08/04/16) Objective Last 24 Hour Vital Signs Date Time Temp Pulse Resp B/P Pulse Ox O2 Delivery O2 Flow Rate FiO2 08/05/16 08:50 Room Air 08/05/16 08:23 98.2 68 20 119/53 98 Room Air 08/05/16 04:00 97.7 59 18 113/57 95 Room Air 08/05/16 00:00 97.0 61 19 115/61 95 Room Air 08/04/16 20:00 98.1 60 19 124/62 94 Room Air 08/04/16 16:00 98.3 68 19 117/55 96 Room Air 08/04/16 12:10 97.9 61 21 107/52 92 Nasal Cannula 2.0 08/04/16 11:48 73 16 132/56 100 Nasal Cannula 08/04/16 11:42 97.5 73 16 132/56 100 Nasal Cannula 2.0 Intake and Output 08/04/16 08/05/16 19:00 07:00 Intake Total 250 ml 975 ml Balance 250 ml 975 ml Intake Oral 250 ml 975 ml # Voids 4 # Bowel Movements 1 1 Laboratory Tests 08/04/16 15:35: Prothrombin Time 22.9H, Prothromb Time International Ratio 2.2H 08/05/16 05:10: Prothrombin Time 16.9H, Prothromb Time International Ratio 1.6H, White Blood Count 6.0, Red Blood Count 3.55L, Hemoglobin 10.6L, Hematocrit 32.8L, Mean Corpuscular Volume 92, Mean Corpuscular Hemoglobin 29.8, Mean Corpuscular Hemoglobin Concent 32.3, Red Cell Distribution Width 13.9, Platelet Count 154, Mean Platelet Volume 8.0, Neutrophils (%) (Auto) 67.6, Lymphocytes (%) (Auto) 13.4L, Monocytes (%) (Auto) 16.4H, Eosinophils (%) (Auto) 1.9, Basophils (%) ( Auto) 0.7, Sodium Level 132L, Potassium Level 5.7H, Chloride Level 89L, Carbon Dioxide Level 21, Anion Gap 22H, Blood Urea Nitrogen 69H, Creatinine 8.7H, Estimat Glomerular Filtration Rate , Glucose Level 65L, Hemoglobin A1c 5.1, Calcium Level 8.9, Phosphorus Level 6.6H, Total Bilirubin 0.4, Aspartate Amino Transf (AST/SGOT) 149H, Alanine Aminotransferase (ALT/SGPT) 89H, Alkaline Phosphatase 269H, Total Protein 6.6, Albumin 3.5, Globulin 3.1, Albumin/ Globulin Ratio 1.1, Triglycerides Level 59, Cholesterol Level 126, LDL Cholesterol 64, HDL Cholesterol 50, Cholesterol/HDL Ratio 2.5L Height (Feet): 5 Height (Inches): 8.00 Weight (Pounds): 200 SUSAN YOUSSEF Aug 05, 2016 11:37
[2016-08-05] MEDS ORDERED: Nulytely 4L ORAL ONE (14:00)
[2016-08-05] MEDS ORDERED: Sorbitol Solution UD 30ml ORAL ONE (15:00)
[2016-08-05] MEDS ORDERED: Warfarin Sodium 5mg ORAL SCH (17:00)
[2016-08-05 18:52] LABS: INR 1.6 (0.9-1.1)
[2016-08-05 19:00] LABS: ANION GAP 19 (5-15); CALCIUM 8.5 mg/dL (8.6-10.2); CARBON DIOXIDE 25 mEQ/L (20-30); CHLORIDE 88 mEQ/L (98-107); HEMOLYSIS 13; POTASSIUM 4.5 mEQ/L (3.4-4.9); SODIUM 132 mEQ/L (135-145)
--- NOTE | 2016-08-05 20:27 | Cardiology Report ---
APPROVED REPORT EKG Measurement Heart [id number] Sinus bradycardia Anterior infarct, age undetermined Abnormal ECG
[2016-08-06 04:00] VITALS: BP 101/46
[2016-08-06 06:37] LABS: BASOPHILS % (AUTO) 0.6 % (0.0-2.0); EOSINOPHILS % (AUTO) 0.4 % (0.0-3.0); LYMPHOCYTES % (AUTO) 14.5 % (20.0-45.0); MEAN CORPUSCULAR HEMOGLOBIN 28.8 PG (27.0-31.0); MEAN CORPUSCULAR VOLUME 93 FL (80-99); MEAN PLATELET VOLUME 7.8 FL (6.5-10.1); MONOCYTES % (AUTO) 17.5 % (1.0-10.0); PLATELET COUNT 160 K/UL (150-450); RED BLOOD COUNT 3.81 M/UL (4.20-5.40); RED CELL DISTRIBUTION WIDTH 13.8 % (11.6-14.8); WHITE BLOOD COUNT 6.2 K/UL (4.8-10.8)
[2016-08-06 06:49] LABS: ALANINE AMINOTRANSFERASE 52 U/L (3-33); ALBUMIN/GLOBULIN RATIO 0.8 (1.0-2.7); ANION GAP 20 (5-15); ASPARTATE AMINO TRANSFERASE 68 U/L (5-40); CALCIUM 8.9 mg/dL (8.6-10.2); CARBON DIOXIDE 22 mEQ/L (20-30); CHLORIDE 90 mEQ/L (98-107); CREATININE 7.5 mg/dL (0.5-0.9); HEMOLYSIS 14; POTASSIUM 5.4 mEQ/L (3.4-4.9); SODIUM 132 mEQ/L (135-145); TOTAL PROTEIN 6.9 g/dL (6.6-8.7)
[2016-08-06 08:24] VITALS: BP 136/65
[2016-08-06] MEDS: Docusate 100mg cap ORAL SCH ×2 (09:40→18:52)
[2016-08-06] MEDS: Sensipar 30mg Tab ORAL SCH (09:40)
[2016-08-06] MEDS: Amiodarone 200mg tab ORAL SCH (09:40)
[2016-08-06 10:32] LABS: INR 1.4 (0.9-1.1); PROTHROMBIN TIME 14.1 SEC (9.30-11.50)
[2016-08-06 11:30] VITALS: BP 138/68
--- NOTE | 2016-08-06 14:11 | Diagnostic Imaging Report ---
Indication:Abdominal pain Technique: Grayscale and duplex Doppler imaging of the abdomen performed. Comparison: None Findings: Patient is had prior right nephrectomy and cholecystectomy. Aorta is moderately calcified. There is seen artifact within the liver consistent with pneumobilia. The biliary ducts are mildly prominent but obviously the CBD is patent. In the umbilical region there is a probable hernia in the anterior abdominal wall. There is a right pleural effusion. Calcific granulomata are noted within the spleen. Pancreas is grossly unremarkable. Impression: Biliary ductal prominence demonstrated. CBD is patent given there is pneumobilia. Small bilateral pleural effusions. Status post cholecystectomy. Status post right nephrectomy. Atherosclerotic vascular disease. Calcific granulomata within the spleen. Anterior abdominal wall hernia.
--- NOTE | 2016-08-06 14:56 | Consultation ---
Consult Note Assessment/Plan Dc dictated # [id number] THOM CASTILLO Aug 06, 2016 14:56
[2016-08-06 16:00] VITALS: BP 143/66
[2016-08-06] MEDS ORDERED: Warfarin Sodium 7.5mg ORAL SCH (17:00)
[2016-08-06 20:00] VITALS: BP 127/74
--- NOTE | 2016-08-06 22:01 | General Progress Note ---
Assessment/Plan Assessment/Plan Assessment - BRBPR - anemia - abnormal LFT - h/o GIST - ESRD - a fib - coumadin Recommendations - outpatient EGD/Colon - OK to resume coumadin, but watch H&H - check abd u/s - check hepatitis serologies Subjective Allergies: Coded Allergies: No Known Allergies (Verified , 08/04/16) Subjective Patient declined GI prep colonoscopy cancelled understands this is evaluation for CA advised to seek GI f/u (with me or her choice) for outpt EGD/colon Objective Last 24 Hour Vital Signs Date Time Temp Pulse Resp B/P Pulse Ox O2 Delivery O2 Flow Rate FiO2 08/06/16 20:00 97.7 65 20 127/74 94 Room Air 08/06/16 16:00 98.2 84 22 143/66 97 Room Air 08/06/16 11:30 98.0 65 20 138/68 98 Room Air 08/06/16 08:24 98.4 61 20 136/65 98 Room Air 08/06/16 04:00 97.9 60 18 101/46 94 Room Air 08/06/16 01:26 98.1 08/05/16 23:52 98.1 69 18 97/61 94 Room Air Intake and Output 08/05/16 08/06/16 19:00 07:00 Intake Total 360 ml 580 ml Output Total 150 ml 600 ml Balance 210 ml -20 ml Intake Oral 360 ml 580 ml Output Urine Total 600 ml Hemodialysis UF 150 ml # Bowel Movements 1 Laboratory Tests 08/06/16 05:50: White Blood Count 6.2, Red Blood Count 3.81L, Hemoglobin 11.0L, Hematocrit 35.4L , Mean Corpuscular Volume 93, Mean Corpuscular Hemoglobin 28.8, Mean Corpuscular Hemoglobin Concent 31.0L, Red Cell Distribution Width 13.8, Platelet Count 160, Mean Platelet Volume 7.8, Neutrophils (%) (Auto) 67.0, Lymphocytes (%) (Auto) 14.5L, Monocytes (%) (Auto) 17.5H, Eosinophils (%) (Auto ) 0.4, Basophils (%) (Auto) 0.6, Sodium Level 132L, Potassium Level 5.4H, Chloride Level 90L, Carbon Dioxide Level 22, Anion Gap 20H, Blood Urea Nitrogen 56H, Creatinine 7.5H, Estimat Glomerular Filtration Rate , Glucose Level 72L, Calcium Level 8.9, Total Bilirubin 0.6, Aspartate Amino Transf (AST/SGOT) 68H, Alanine Aminotransferase (ALT/SGPT) 52H, Alkaline Phosphatase 213H, Total Protein 6.9, Albumin 3.2L, Globulin 3.7, Albumin/Globulin Ratio 0.8L, Hepatitis A IgM Antibody [Pending], Hepatitis B Surface Antigen [Pending], Hepatitis B Core IgM Antibody [Pending], Hepatitis C Antibody [Pending] 08/06/16 10:00: Prothrombin Time 14.1H, Prothromb Time International Ratio 1.4H Height (Feet): 5 Height (Inches): 8.00 Weight (Pounds): 200 Objective WDWN NCAT supple CTA RRR Soft ND NT no edema nonfocal LAURA HEATH Aug 06, 2016 22:01
[2016-08-06 23:47] VITALS: BP 135/75
--- NOTE | 2016-08-07 08:28 | Discharge Summary ---
DATE OF ADMISSION: 08/04/2016 DATE OF DISCHARGE: 08/07/2016 CHIEF COMPLAINT: General body aches and blood per rectum. HISTORY OF PRESENT ILLNESS: This is a 81-year-old female with history of end-stage renal disease, on hemodialysis every Tuesday, , and Tuesday. The patient was admitted for generalized body aches and blood per rectum. HOSPITAL COURSE: The patient was seen by Dr. Youssef in GI consultation. He arranged for colonoscopy, however, on the day when she was supposed to have it, she refused. The colonoscopy was canceled. Meanwhile, the patient's hemoglobin and hematocrit were followed and there was no drop. The patient was admitted with hematocrit of 30. On 08/04/2016, the hematocrit was 38.6 with hemoglobin of 12 and on 08/06/2016, the hematocrit was 35.4 with a hemoglobin of 11, so there was some drop, but not significant. It was felt the patient could be discharged home and have the workup as an outpatient. The patient's Coumadin was initially put on hold, however, on the day of discharge, she was supposed to be back on it. DISCHARGE DIAGNOSES: 1. General body aches. 2. End-stage renal disease, on hemodialysis. 3. Blood per rectum. DISCHARGE MEDICATION: Please refer to discharge medication list. Billy Emmanuel M.D. DR: DEVON JOB#: [id number] CC:
== END 2016-08-07 00:50 | disposition home or self-care (01) | DRG 377 ==
LOC: EDBD 05:50 → EDSEX 05:50 → EMR 05:58 → 4W 06:20 → EDBEDREQ 07:55 → 4W 23:43
PROC: 5A1D00Z (ICD-10-PCS; principal; 2016-08-04)
DX: K62.5 Hemorrhage of anus and rectum (principal); N18.6 End stage renal disease; I12.0 Hypertensive chronic kidney disease with stage 5 chronic kidney disease or end stage renal disease; I48.0 Paroxysmal atrial fibrillation; D64.89 Other specified anemias; E11.9 Type 2 diabetes mellitus without complications; Z99.2 Dependence on renal dialysis; Z79.01 Long term (current) use of anticoagulants; Z85.3 Personal history of malignant neoplasm of breast; Z85.09 Personal history of malignant neoplasm of other digestive organs; R52 Pain, unspecified; E03.9 Hypothyroidism, unspecified; R91.8 Other nonspecific abnormal finding of lung field; D64.9 Anemia, unspecified
CPT/HCPCS: 36415; 71010; 76700; 80048; 80053; 80061; 82550; 82553; 82962; 83036; 84100; 84484; 85025; 85610; 86705; 86709; 86803; 86850; 86900; 86901; 87081; 87340; 93005

== ENCOUNTER 2016-11-09 09:37 | Inpatient (IN) | payer MEDICARE, OTHER ==
[2016-11-09] VITALS (7 sets, daily range): BP systolic 123–187; BP diastolic 56–106
[~2016-11-09] VITALS: Ht 172.7 cm; Wt 89.8 kg
[~2016-11-09 09:37] MED LIST changes: +WARFARIN SODIU7.5 MG ORAL
[2016-11-09] MEDS ORDERED: Amiodarone 200mg tab ORAL ONE (10:00)
[2016-11-09] MEDS ORDERED: Labetalol 200mg tab ORAL SCH (10:00)
[2016-11-09 10:44] LABS: BASOPHILS % (AUTO) 0.8 % (0.0-2.0); EOSINOPHILS % (AUTO) 2.1 % (0.0-3.0); LYMPHOCYTES % (AUTO) 11.9 % (20.0-45.0); MEAN CORPUSCULAR HEMOGLOBIN 30.6 PG (27.0-31.0); MEAN CORPUSCULAR HGB CONC 30.7 G/DL (32.0-36.0); MEAN CORPUSCULAR VOLUME 100 FL (80-99); MEAN PLATELET VOLUME 7.7 FL (6.5-10.1); MONOCYTES % (AUTO) 11.9 % (1.0-10.0); NEUTROPHILS % (AUTO) 73.3 % (45.0-75.0); PLATELET COUNT 214 K/UL (150-450); RED BLOOD COUNT 4.04 M/UL (4.20-5.40); RED CELL DISTRIBUTION WIDTH 15.1 % (11.6-14.8); WHITE BLOOD COUNT 10.1 K/UL (4.8-10.8)
[2016-11-09 10:56] LABS: TROPONIN I < 0.30 ng/mL (<=0.30)
[2016-11-09 11:05] LABS: CKMB 3.7 ng/mL (< 3.8)
[2016-11-09 11:29] LABS: ALANINE AMINOTRANSFERASE 10 U/L (3-33); ALBUMIN/GLOBULIN RATIO 1.3 (1.0-2.7); ANION GAP 21 (5-15); ASPARTATE AMINO TRANSFERASE 21 U/L (5-40); CALCIUM 8.8 mg/dL (8.6-10.2); CARBON DIOXIDE 21 mEQ/L (20-30); CHLORIDE 92 mEQ/L (98-107); CREATININE 5.5 mg/dL (0.5-0.9); HEMOLYSIS 73; POTASSIUM 6.7 mEQ/L (3.4-4.9); SODIUM 134 mEQ/L (135-145); TOTAL PROTEIN 6.8 g/dL (6.6-8.7)
[2016-11-09] MEDS ORDERED: Calcium Gluconate 1gm/10ml vial IVP ONE (11:30)
[2016-11-09] MEDS ORDERED: Albuterol ud Inhalation HHN ONE (11:30)
[2016-11-09] MEDS ORDERED: Sodium Polystyrene Sulfonate 15gm Powder ORAL ONE ×2 (11:30→20:30)
[2016-11-09] MEDS ORDERED: NEPHROVITE1 TAB ORAL (12:19)
--- NOTE | 2016-11-09 12:19 | Emergency Room Report ---
History of Present Illness General Chief Complaint: Pain Source: Patient, EMS Present Illness HPI [id number] BIBEMS from home with "both legs gave out today" while ambulating with walker at home. Son "caught her." Didnt fall, hit head, no injury. Due for HD for known CKD today. Known arthritis. Denies chest pain, SOB, abd pain, headache, fever/chills. Allergies: Coded Allergies: No Known Allergies (Verified , 08/04/16) Patient History Past Medical History: HTN, renal disease, dialysis, other - Arthritis Past Surgical History: none Pertinent Family History: none Social History: Denies: alcohol use, drug use, smoking Last Menstrual Period: na Now: No Immunizations: UTD Reviewed Nursing Documentation: PMH: Agreed, PSxH: Agreed Nursing Documentation-PMH Past Medical History: No History, Except For Hx Hypertension: Yes Hx Pacemaker: No Hx Asthma: No Hx COPD: No Hx Diabetes: Yes Hx Cancer: Yes - breast, thyroid, kidney Hx Gastrointestinal Problems: No Hx Dialysis: Yes - [id number] Hx Neurological Problems: No Hx Cerebrovascular Accident: No Hx Seizures: No Review of Systems All Other Systems: negative except mentioned in HPI Physical Exam Vital Signs Date Time Temp Pulse Resp B/P Pulse Ox O2 Delivery O2 Flow Rate FiO2 11/09/16 09:31 97.5 54 18 199/90 98 Room Air Sp02 EP Interpretation: reviewed, abnormal General Appearance: normal inspection, well appearing, no apparent distress, alert, GCS 15, non-toxic, other - Very nice, well appearing elderly lady Head: normocephalic, atraumatic Eyes: bilateral eye EOMI, bilateral eye PERRL ENT: normal ENT inspection, hearing grossly normal, normal voice Neck: normal inspection, full range of motion, supple, no bony tend Respiratory: normal inspection, lungs clear, normal breath sounds, no rhonchi, no respiratory distress, no retraction, no accessory muscle use, no wheezing Cardiovascular #1: regular rate, rhythm, no edema Gastrointestinal: normal inspection, normal bowel sounds, non tender, soft, no guarding, no hernia Genitourinary: no CVA tenderness Musculoskeletal: normal inspection, back normal, normal range of motion, Jair' s Sign negative Neurologic: normal inspection, alert, oriented x3, responsive, flour blender III-XII nml as tested, motor strength/tone normal, speech normal, other - Reduced strength bilateral lower extremities, 2/5 Psychiatric: normal inspection, judgement/insight normal, mood/affect normal Skin: normal inspection, normal color, no rash Medical Decision Making Medicare Attestation I Snehal Torres MD hereby attest that the medical record entry for date of service, 06/28/16 accurately reflects signatures/notations that I made in my capacity as MD when I treated/diagnosed the above listed Medicare beneficiary. I attest that this information is true, accurate and complete to the best of my knowledge. I understand that any falsification, omission, or concealment of material fact may subject me to administrative, civil, or criminal liability. This patient warrants hospital admission for extreme of age and has a condition that cannot be treated as outpatient. Diagnostic Impression: Primary Impression: Weakness Additional Impressions: Hyperkalemia CKD (chronic kidney disease) Qualified Codes: N18.9 - Chronic kidney disease, unspecified ER Course Bilateral leg weakness, CKD on HD patient VS notable for hypertension - patient did NOT take any of home meds today. Gave Atenolol and Amiodarone doses as prescibed Weakness - Possibly related to HyperK - Due for HD today - ECG with ?interval change from sinus elaina to 1st degree block since July 2016 last ECG - Calcium given as well as dextrose/insulin, albuterol and kayexelate - CT head: no acute CVA Endorsed to Dr Emmanuel for tele admission for tx of HyperK and HD at 1219pm EKG Diagnostic Results Rate: other - Sinus elaina with 1st degree AV block Rhythm: NSR ST Segments: other - LBBB ASA given to the pt in ED: No Rhythm Strip Diag. Results EP Interpretation: yes Rate: 54 Rhythm: NSR, no PVC's, no ectopy Chest X-Ray Diagnostic Results EP Interpretation: Yes Findings: no consolidation, no effusion, no pneumothorax, no acute cardiopulmonary disease, other - cardiomegaly Number of Views: 1 Last Vital Signs Date Time Temp Pulse Resp B/P Pulse Ox O2 Delivery O2 Flow Rate FiO2 11/09/16 10:51 56 18 187/82 98 Room Air 11/09/16 09:31 97.5 Status: improved Disposition: ADMITTED INPATIENT Condition: Serious Referrals: NON PHYSICIAN (PCP) SNEHAL TORRES M.D. Nov 09, 2016 12:19
--- NOTE | 2016-11-09 12:59 | History & Physical ---
History and Physical History & Physicial DATE OF ADMISSION: 11/09/16 CHIEF COMPLAINT: weakness HISTORY OF PRESENT ILLNESS: This is a 81-year-old female with a history of end-stage renal disease, on hemodialysis every Tuesday, , and Tuesday who was BIBA after she states both of her legs "gave out" while walking with a walker. Her son caught her and she denies hitting the floor. She is scheduled for HD today. She denies any CP, SOB, abd pain. she reports left shoulder pain and bilateral LE weakness. She has had a recent surgery for her left arm DVT but doesnt remember the name of the procedire. Allergies: NKDA PAST MEDICAL HISTORY: Includes history of diabetes mellitus, atrial fibrillation, history of breast cancer, status post lumpectomy, and history of gastrointestinal stromal tumor. The patient has a dialysis access to left arm. MEDICATIONS: Reviewed. ALLERGIES: No known drug allergies. SOCIAL HISTORY: No history of smoking or alcohol abuse. REVIEW OF SYSTEMS: As above. PHYSICAL EXAMINATION: GENERAL: The patient is a moderately obese female, in no acute distress. Last 24 Hour Vital Signs Date Time Temp Pulse Resp B/P Pulse Ox O2 Delivery O2 Flow Rate FiO2 11/09/16 12:21 56 18 98 Room Air 21 11/09/16 12:21 21 11/09/16 12:20 56 18 Room Air 21 11/09/16 10:51 56 18 187/82 98 Room Air 11/09/16 10:20 56 190/90 11/09/16 09:31 97.5 54 18 199/90 98 Room Air GEN: NAD. awake and alert to person and place. HEENT: [place] conjunctivae. Anicteric sclerae. NECK: Supple. no JVD LUNGS: Clear to auscultation. no rales HEART: S1 and S2 without murmurs or rubs. ABDOMEN: Soft and nontender. EXTREMITIES: + 3 Bilateral pedal edema of feet especially ankles. no cyanosis NEURO: weakness in lower extremities. Motor for bilateral LE 2/5. LUE 2/5. LABORATORY FINDINGS: Laboratory Tests Test 11/09/16 10:30 White Blood Count 10.1 K/UL (4.8-10.8) Red Blood Count 4.04 M/UL (4.20-5.40) L Hemoglobin 12.4 G/DL (12.0-16.0) Hematocrit 40.2 % (37.0-47.0) Mean Corpuscular Volume 100 FL (80-99) H Mean Corpuscular Hemoglobin 30.6 PG (27.0-31.0) Mean Corpuscular Hemoglobin Concent 30.7 G/DL (32.0-36.0) L Red Cell Distribution Width 15.1 % (11.6-14.8) H Platelet Count 214 K/UL (150-450) Mean Platelet Volume 7.7 FL (6.5-10.1) Neutrophils (%) (Auto) 73.3 % (45.0-75.0) Lymphocytes (%) (Auto) 11.9 % (20.0-45.0) L Monocytes (%) (Auto) 11.9 % (1.0-10.0) H Eosinophils (%) (Auto) 2.1 % (0.0-3.0) Basophils (%) (Auto) 0.8 % (0.0-2.0) Sodium Level 134 mEQ/L (135-145) L Potassium Level 6.7 mEQ/L (3.4-4.9) *H Chloride Level 92 mEQ/L (98-107) L Carbon Dioxide Level 21 mEQ/L (20-30) Anion Gap 21 (5-15) H Blood Urea Nitrogen 50 mg/dL (7-23) H Creatinine 5.5 mg/dL (0.5-0.9) H Estimat Glomerular Filtration Rate mL/min (>60) Glucose Level 107 mg/dL (74-106) H Calcium Level 8.8 mg/dL (8.6-10.2) Total Bilirubin 0.3 mg/dL (0.0-1.2) Aspartate Amino Transf (AST/SGOT) 21 U/L (5-40) Alanine Aminotransferase (ALT/SGPT) 10 U/L (3-33) Alkaline Phosphatase 89 U/L (35-104) Total Creatine Kinase 46 U/L (26-140) Creatine Kinase MB 3.7 ng/mL (< 3.8) Creatine Kinase MB Relative Index 8.0 Troponin I < 0.30 ng/mL (<=0.30) Total Protein 6.8 g/dL (6.6-8.7) Albumin 3.9 g/dL (3.5-5.2) Globulin 2.9 g/dL Albumin/Globulin Ratio 1.3 (1.0-2.7) CT head - no acute process EKG - SR with LBBB. ASSESSMENT: Weakness Afib on amio and coumadin ESRD on HD HTN urgency 2/2 accelerated HTN hyperkalemia history of breast cancer, status post lumpectomy LBBB PLAN: Telemetry Renal consulted HD today Coumadin will be continued for now per pharmacy. resume home medications US LEGS r/o DVT PT evaluation (high fall risk) will check trop. BENJI GONZALEZ M.D. Nov 09, 2016 12:59
--- NOTE | 2016-11-09 13:52 | Diagnostic Imaging Report ---
Indication: SOB, chest pain Technique: One view of the chest Comparison: 08/04/2016 Findings: The heart is enlarged. Atelectasis or scarring is again demonstrated in the left midlung. There is blunting of the right costophrenic sulcus. The aorta is tortuous ectatic and calcified. Clips are seen in the neck. Degenerative changes of both shoulders are noted. Impression: Blunting of the right costophrenic sulcus. Likely indicates a pleural effusion. This is similar to the prior exam No acute process otherwise Cardiomegaly Left perihilar scarring versus atelectasis Other findings as noted
[2016-11-09] MEDS ORDERED: fentaNYL 100 mcg/2 mL IV ONE ×2 (15:00→17:45)
--- NOTE | 2016-11-09 20:18 | Consultation ---
Consult Note Assessment/Plan Renal consult dictated # [id number] THOM CASTILLO Nov 09, 2016 20:18
[2016-11-09] MEDS ORDERED: Enoxaparin 30mg Inj SUBQ SCH ×2 (23:00)
--- NOTE | 2016-11-09 23:37 | Consultation ---
DATE OF CONSULTATION: 11/09/2016 NEPHROLOGY CONSULTATION CONSULTING PHYSICIAN: Billy Emmanuel M.D. REFERRING PHYSICIAN: Marquis Vizcarra M.D. REASON FOR CONSULTATION: End-stage renal disease, requiring urgent hemodialysis. HISTORY OF PRESENT ILLNESS: This is a 81-year-old female with history of end-stage renal disease, on hemodialysis every Tuesday, , and Tuesday. The patient was admitted because of her legs were giving out while she was walking. The patient was seen in the emergency room and was found to have a potassium of 6.7. I was called to start the patient urgently on dialysis. PAST MEDICAL HISTORY: Includes history of diabetes mellitus; atrial fibrillation; breast cancer, status post lumpectomy; and history of gastrointestinal stromal tumor. The patient has a left forearm fistula. MEDICATIONS: Reviewed in the EMR. ALLERGIES: No known drug allergies. SOCIAL HISTORY: No history of smoking or alcohol abuse. REVIEW OF SYSTEMS: Noncontributory except above. PHYSICAL EXAMINATION: GENERAL: The patient is an elderly female, in no acute distress. VITAL SIGNS: Blood pressure is 187/82, pulse is 56, respiratory rate is 18, and temperature 97.5 degrees. HEENT: [place] conjunctivae. Anicteric sclerae. NECK: Supple. LUNGS: Clear to auscultation. HEART: S1 and S2 without murmurs or rubs. ABDOMEN: Soft and nontender. EXTREMITIES: Bilateral pedal edema. The patient has a left forearm fistula with good bruit. LABORATORY FINDINGS: The CBC shows a WBC of 10.1, hematocrit is 40.2, hemoglobin is 12.4, and platelets 214,000. The chemistry panel shows serum sodium 134, potassium 6.7, chloride 92, BUN is 50, creatinine 5.5, and glucose 107. Albumin is 3.9. ASSESSMENT: This is a 81-year-old female with history of end-stage renal disease, who was admitted with lower extremity weakness. She has significant hyperkalemia, history of diabetes, and atrial fibrillation. PLAN: The patient will be dialyzed urgently. Laboratories will be followed and further recommendations will be given based on those results. Case was discussed with the ER staff. If we cannot get dialysis nurse in time, may have to transfer the patient to [facility]. Thank you very much. Billy Emmanuel M.D. DR: DMITRI JOB#: [id number] CC: LETICIA
[2016-11-10] VITALS: BP 162/73
[2016-11-10 04:00] VITALS: BP 144/55
[2016-11-10 05:18] LABS: BASOPHILS % (AUTO) 1.1 % (0.0-2.0); EOSINOPHILS % (AUTO) 3.6 % (0.0-3.0); LYMPHOCYTES % (AUTO) 12.4 % (20.0-45.0); MEAN CORPUSCULAR HEMOGLOBIN 31.8 PG (27.0-31.0); MEAN CORPUSCULAR HGB CONC 32.6 G/DL (32.0-36.0); MEAN CORPUSCULAR VOLUME 98 FL (80-99); MEAN PLATELET VOLUME 7.9 FL (6.5-10.1); MONOCYTES % (AUTO) 10.9 % (1.0-10.0); PLATELET COUNT 194 K/UL (150-450); RED BLOOD COUNT 3.69 M/UL (4.20-5.40); RED CELL DISTRIBUTION WIDTH 14.6 % (11.6-14.8)
[2016-11-10 05:26] LABS: INR 1.9 (0.9-1.1); PROTHROMBIN TIME 19.6 SEC (9.30-11.50)
[2016-11-10 05:47] LABS: ANION GAP 24 (5-15); CALCIUM 7.9 mg/dL (8.6-10.2); CARBON DIOXIDE 20 mEQ/L (20-30); CHLORIDE 90 mEQ/L (98-107); CREATININE 8.9 mg/dL (0.5-0.9); HEMOLYSIS 2; SODIUM 134 mEQ/L (135-145)
[2016-11-10 05:55] LABS: POTASSIUM 7.9 mEQ/L (3.4-4.9)
[2016-11-10] MEDS: Levothyroxine 25mcg tab ORAL SCH (06:30)
[2016-11-10 06:34] LABS: TROPONIN I < 0.30 ng/mL (<=0.30)
[2016-11-10 08:00] VITALS: BP 147/66
--- NOTE | 2016-11-10 08:33 | Diagnostic Imaging Report ---
Indication: FALL, pain, swelling Technique: spiral acquisitions obtained through the brain. Angled axial and coronal 5 x 5 mm slices were reconstructed. No IV contrast utilized. Radiation dose was minimized using automated exposure control Total dose length product 1484 mGycm. CTDIvol(s) 70 mGy Comparison: 04/20/2015 FINDINGS: No acute hemorrhage or edema. No mass effect or midline shift. There is age-related enlargement of the ventricles and extra axial CSF spaces. There is periventricular deep white matter ischemic change. Normal fam-white differentiation. Visualized orbits are unremarkable. Visualized sinuses are unremarkable. Intact calvarium. No significant interim change IMPRESSION: Chronic and age-related changes. Negative for acute intracranial bleed or mass effect The CT scanner at [facility] is accredited by the [employer] and the scans are performed using protocols designed to limit radiation exposure to as low as reasonably achievable to attain images of sufficient resolution adequate for diagnostic evaluation
[2016-11-10] MEDS: Nephrovite tab ORAL SCH (08:48)
[2016-11-10] MEDS: Sensipar 30mg Tab ORAL SCH (08:48)
[2016-11-10] MEDS: Amiodarone 200mg tab ORAL SCH (08:48)
[2016-11-10 10:31] LABS: ANION GAP 20 (5-15); CALCIUM 8.4 mg/dL (8.6-10.2); CARBON DIOXIDE 27 mEQ/L (20-30); CHLORIDE 92 mEQ/L (98-107); HEMOLYSIS 3; POTASSIUM 4.3 mEQ/L (3.4-4.9); SODIUM 139 mEQ/L (135-145)
--- NOTE | 2016-11-10 11:26 | Nephrology Progress Note ---
Assessment/Plan Problem List: (1) ESRD (end stage renal disease) (2) Hypothyroidism (3) HTN (hypertension) (4) DM (diabetes mellitus) (5) Weakness Assessment: of LEs better Plan Next HD on 11/12 follow BMP PT Subjective Subjective Pt was dialyzed this morning Objective Objective Last 24 Hour Vital Signs Date Time Temp Pulse Resp B/P Pulse Ox O2 Delivery O2 Flow Rate FiO2 11/10/16 08:48 70 147/66 11/10/16 08:00 97.7 70 18 147/66 97 Room Air 11/10/16 07:54 76 11/10/16 06:57 Room Air 11/10/16 04:00 97.7 54 20 144/55 99 Room Air 21 11/10/16 03:44 55 11/10/16 03:30 Room Air 11/10/16 00:02 162/73 11/10/16 00:00 54 11/10/16 00:00 97.7 56 20 162/73 99 Room Air 11/09/16 21:03 97.6 53 20 143/83 98 Room Air 21 11/09/16 21:01 97.6 53 20 143/83 98 Room Air 11/09/16 20:14 97.6 52 18 123/61 98 Room Air 11/09/16 18:54 56 18 140/76 98 Room Air 11/09/16 18:18 97.6 11/09/16 18:09 50 154/70 11/09/16 17:36 52 18 141/66 98 Room Air 11/09/16 15:38 54 18 146/106 98 Room Air 11/09/16 15:23 97.6 11/09/16 14:06 97.6 11/09/16 13:09 56 18 124/56 98 Room Air 11/09/16 12:36 60 20 100 Room Air 21 11/09/16 12:21 56 18 98 Room Air 21 11/09/16 12:21 21 11/09/16 12:20 56 18 Room Air 21 Intake and Output 11/09/16 11/10/16 19:00 07:00 Intake Total 300 ml Output Total 2300 ml Balance 300 ml -2300 ml Intake Oral 300 ml Output Hemodialysis UF 2300 ml Laboratory Tests 11/10/16 03:55: White Blood Count 8.0, Red Blood Count 3.69L, Hemoglobin 11.7L, Hematocrit 36.0L , Mean Corpuscular Volume 98, Mean Corpuscular Hemoglobin 31.8H, Mean Corpuscular Hemoglobin Concent 32.6, Red Cell Distribution Width 14.6, Platelet Count 194, Mean Platelet Volume 7.9, Neutrophils (%) (Auto) 72.0, Lymphocytes (% ) (Auto) 12.4L, Monocytes (%) (Auto) 10.9H, Eosinophils (%) (Auto) 3.6H, Basophils (%) (Auto) 1.1, Prothrombin Time 19.6H, Prothromb Time International Ratio 1.9H, Sodium Level 134L, Potassium Level 7.9*H, Chloride Level 90L, Carbon Dioxide Level 20, Anion Gap 24H, Blood Urea Nitrogen 83#H, Creatinine 8.9 #H, Estimat Glomerular Filtration Rate , Glucose Level 75, Calcium Level 7.9L, Troponin I < 0.30 11/10/16 09:38: Sodium Level 139, Potassium Level 4.3, Chloride Level 92L, Carbon Dioxide Level 27, Anion Gap 20H, Blood Urea Nitrogen 49#H, Creatinine 6.0H, Estimat Glomerular Filtration Rate , Glucose Level 125H, Calcium Level 8.4L Height (Feet): 5 Height (Inches): 8.00 Weight (Pounds): 198 Cardiovascular: normal rate Respiratory/Chest: lungs clear Extremities: moderate edema THOM CASTILLO Nov 10, 2016 11:26
[2016-11-10 12:00] VITALS: BP 135/63
[2016-11-10 16:00] VITALS: BP 131/41
[2016-11-10] MEDS ORDERED: Warfarin Sodium 7.5mg ORAL ONE (17:00)
--- NOTE | 2016-11-10 18:36 | Cardiology Report ---
APPROVED REPORT EKG Measurement Heart [id number] VT [id number] Sinus bradycardia with 1st degree AV block Left bundle branch block Abnormal ECG
--- NOTE | 2016-11-10 19:08 | Internal Med Progress Note ---
Subjective Physician Name Marquis Vizcarra Attending Physician Marquis Vizcarra M.D. Current Medications Medications (Trade) Dose Ordered Sig/Donte Route PRN Reason Start Time Stop Time Status Last Admin Dose Admin Acetaminophen (Tylenol) 650 mg Q4H PRN ORAL Mild Pain (Pain Scale 1-3) 11/09/16 13:00 12/09/16 12:59 11/10/16 12:42 Amiodarone HCl (Cordarone) 200 mg DAILY ORAL 11/10/16 09:00 12/10/16 08:59 11/10/16 08:48 Bisacodyl (Dulcolax) 10 mg HSPRN PRN RECTAL Constipation 11/09/16 13:00 12/09/16 12:59 Cinacalcet (Sensipar) 90 mg DAILY ORAL 11/10/16 09:00 12/10/16 08:59 11/10/16 08:48 Clonidine HCl (Catapres) 0.1 mg Q6HR PRN ORAL sbp > 160 11/09/16 13:00 12/09/16 12:59 11/10/16 00:02 Dextrose (Dextrose 50%) STAT PRN IV Hypoglycemia 11/09/16 13:00 12/09/16 12:59 Labetalol HCl (Normodyne) 200 mg TID ORAL 11/09/16 18:00 12/09/16 17:59 11/10/16 18:14 Levothyroxine Sodium (Synthroid) 88 mcg ACBREAKFAST ORAL 11/10/16 06:30 12/10/16 06:29 Ondansetron HCl (Zofran) 4 mg Q6H PRN IVP Nausea & Vomiting 11/09/16 13:00 12/09/16 12:59 Sevelamer Carbonate (Renvela) 4,000 mg BEFORE MEALS ORAL 11/09/16 16:30 12/09/16 16:29 11/10/16 17:10 Vitamin B Complex/ Vit C/Folic Acid (Nephrovite) 1 tab DAILY ORAL 11/10/16 09:00 12/10/16 08:59 11/10/16 08:48 Warfarin Sodium (Coumadin per pharmacy) 1 ea DAILY PRN MISC Per rx protocol 11/10/16 08:00 12/10/16 07:59 Allergies: Coded Allergies: No Known Allergies (Verified , 08/04/16) All Systems: reviewed and negative except above - knee pain Objective Last Vital Signs Date Time Temp Pulse Resp B/P Pulse Ox O2 Delivery O2 Flow Rate FiO2 11/10/16 18:14 65 11/10/16 18:14 131/41 11/10/16 16:00 98.1 16 Room Air 11/10/16 12:00 100 11/10/16 04:00 21 General Appearance: no apparent distress, alert Neck: supple, normal inspection Cardiovascular: normal rate, regular rhythm Respiratory/Chest: lungs clear, normal breath sounds Abdomen: non tender, soft Neurologic: alert, oriented x 3 Laboratory Tests Test 11/10/16 03:55 11/10/16 09:38 White Blood Count 8.0 K/UL (4.8-10.8) Red Blood Count 3.69 M/UL (4.20-5.40) L Hemoglobin 11.7 G/DL (12.0-16.0) L Hematocrit 36.0 % (37.0-47.0) L Mean Corpuscular Volume 98 FL (80-99) Mean Corpuscular Hemoglobin 31.8 PG (27.0-31.0) H Mean Corpuscular Hemoglobin Concent 32.6 G/DL (32.0-36.0) Red Cell Distribution Width 14.6 % (11.6-14.8) Platelet Count 194 K/UL (150-450) Mean Platelet Volume 7.9 FL (6.5-10.1) Neutrophils (%) (Auto) 72.0 % (45.0-75.0) Lymphocytes (%) (Auto) 12.4 % (20.0-45.0) L Monocytes (%) (Auto) 10.9 % (1.0-10.0) H Eosinophils (%) (Auto) 3.6 % (0.0-3.0) H Basophils (%) (Auto) 1.1 % (0.0-2.0) Prothrombin Time 19.6 SEC (9.30-11.50) H Prothromb Time International Ratio 1.9 (0.9-1.1) H Sodium Level 134 mEQ/L (135-145) L 139 mEQ/L (135-145) Potassium Level 7.9 mEQ/L (3.4-4.9) *H 4.3 mEQ/L (3.4-4.9) Chloride Level 90 mEQ/L (98-107) L 92 mEQ/L (98-107) L Carbon Dioxide Level 20 mEQ/L (20-30) 27 mEQ/L (20-30) Anion Gap 24 (5-15) H 20 (5-15) H Blood Urea Nitrogen 83 mg/dL (7-23) #H 49 mg/dL (7-23) #H Creatinine 8.9 mg/dL (0.5-0.9) #H 6.0 mg/dL (0.5-0.9) H Estimat Glomerular Filtration Rate mL/min (>60) mL/min (>60) Glucose Level 75 mg/dL (74-106) 125 mg/dL (74-106) H Calcium Level 7.9 mg/dL (8.6-10.2) L 8.4 mg/dL (8.6-10.2) L Troponin I < 0.30 ng/mL (<=0.30) Intake and Output 11/09/16 11/10/16 19:00 07:00 Intake Total 300 ml Output Total 2300 ml Balance 300 ml -2300 ml Intake Oral 300 ml Output Hemodialysis UF 2300 ml Assessment/Plan Assessment/Plan ASSESSMENT: Weakness Afib on amio and coumadin ESRD on HD HTN urgency 2/2 accelerated HTN hyperkalemia - improved history of breast cancer, status post lumpectomy LBBB PLAN: Telemetry Renal consulted HD today Coumadin will be continued for now per pharmacy. resume home medications US LEGS r/o DVT xray of both knees PT evaluation (high fall risk) d/c home tomorrow with MARQUIS DENISE M.D. Nov 10, 2016 19:08
[2016-11-10 20:00] VITALS: BP 119/56
[2016-11-11] VITALS: BP 131/58
[2016-11-11 04:00] VITALS: BP 158/58
[2016-11-11] MEDS: Levothyroxine 25mcg tab ORAL SCH (06:52)
[2016-11-11 08:00] VITALS: BP 159/73
[2016-11-11 09:18] LABS: TROPONIN I < 0.30 ng/mL (<=0.30)
[2016-11-11] MEDS: Sensipar 30mg Tab ORAL SCH (09:19)
[2016-11-11] MEDS: Nephrovite tab ORAL SCH (09:19)
[2016-11-11] MEDS: Amiodarone 200mg tab ORAL SCH (09:20)
--- NOTE | 2016-11-11 12:05 | Diagnostic Imaging Report ---
Indications: Left knee pain Technique: Portable AP and lateral views of the left knee. Findings: Comparison: None Lack of oblique views limits evaluation. Mildly increased density in suprapatellar bursa region. No fracture, dislocation, joint space widening , lytic destruction, periosteal reaction , surrounding soft tissue swelling/foreign body/gas, or other acute changes are identified. Patellofemoral and knee joint space is narrowed with marginal osteophyte formation, latter more so medially, with associated vacuum phenomenon. Questionable curvilinear calcification in lateral knee joint compartment. Prominent arterial mural calcification. No other chronic change demonstrated. 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 Diagnostic possibilities include gout, pseudogout, hyperparathyroidism, and other less common deposition diseases. Arteriosclerosis
[2016-11-11 12:28] VITALS: BP 172/86
[2016-11-11 12:33] LABS: INR 1.6 (0.9-1.1); PROTHROMBIN TIME 16.2 SEC (9.30-11.50)
--- NOTE | 2016-11-11 12:40 | Nephrology Progress Note ---
Assessment/Plan Problem List: (1) ESRD (end stage renal disease) (2) Hypothyroidism (3) HTN (hypertension) (4) DM (diabetes mellitus) (5) Weakness Assessment: of LEs better Plan Next HD on 11/12 follow BMP PT follow INR Subjective Subjective feels better Objective Objective Last 24 Hour Vital Signs Date Time Temp Pulse Resp B/P Pulse Ox O2 Delivery O2 Flow Rate FiO2 11/11/16 12:33 63 172/86 11/11/16 12:28 97.7 63 20 172/86 95 Room Air 11/11/16 09:20 66 159/73 11/11/16 08:00 97.2 66 20 159/73 97 Room Air 11/11/16 07:24 68 11/11/16 04:00 62 11/11/16 04:00 97.0 97 16 158/58 100 Room Air 21 11/11/16 00:00 64 11/11/16 00:00 98.2 63 16 131/58 100 Room Air 21 11/10/16 20:00 97.9 76 16 119/56 100 Room Air 21 11/10/16 20:00 60 11/10/16 18:14 65 11/10/16 18:14 65 131/41 11/10/16 17:15 62 11/10/16 16:00 98.1 58 16 131/41 Room Air 11/10/16 13:41 97.7 11/10/16 12:43 67 118/65 Intake and Output 11/10/16 11/11/16 19:00 07:00 Intake Total 660 ml Balance 660 ml Intake Oral 660 ml # Voids 2 # Bowel Movements 2 Laboratory Tests 11/11/16 09:00: Troponin I < 0.30 11/11/16 12:00: Prothrombin Time 16.2H, Prothromb Time International Ratio 1.6H Height (Feet): 5 Height (Inches): 8.00 Weight (Pounds): 198 Cardiovascular: normal rate Respiratory/Chest: lungs clear Extremities: moderate edema THOM CASTILLO Nov 11, 2016 12:40
--- NOTE | 2016-11-11 12:54 | Internal Med Progress Note ---
Subjective Physician Name Marquis Vizcarra Attending Physician Marquis Vizcarra M.D. Current Medications Medications (Trade) Dose Ordered Sig/Donte Route PRN Reason Start Time Stop Time Status Last Admin Dose Admin Acetaminophen (Tylenol) 650 mg Q4H PRN ORAL Mild Pain (Pain Scale 1-3) 11/09/16 13:00 12/09/16 12:59 11/11/16 03:52 Amiodarone HCl (Cordarone) 200 mg DAILY ORAL 11/10/16 09:00 12/10/16 08:59 11/11/16 09:20 Bisacodyl (Dulcolax) 10 mg HSPRN PRN RECTAL Constipation 11/09/16 13:00 12/09/16 12:59 Cinacalcet (Sensipar) 90 mg DAILY ORAL 11/10/16 09:00 12/10/16 08:59 11/11/16 09:19 Clonidine HCl (Catapres) 0.1 mg Q6HR PRN ORAL sbp > 160 11/09/16 13:00 12/09/16 12:59 11/10/16 00:02 Dextrose (Dextrose 50%) STAT PRN IV Hypoglycemia 11/09/16 13:00 12/09/16 12:59 Heparin Sodium (Porcine) (Heparin 5000 units/ml) 5,000 units POSTHD PRN INJ FOR HD USE ONLY 11/12/16 12:45 11/12/16 23:59 Heparin Sodium (Porcine) (Heparin Sod 1000 units/ml 10ml) 2,000 unit ONCE ONCE IV 11/12/16 12:45 11/12/16 12:46 UNV Labetalol HCl (Normodyne) 200 mg TID ORAL 11/09/16 18:00 12/09/16 17:59 11/11/16 12:33 Levothyroxine Sodium (Synthroid) 88 mcg ACBREAKFAST ORAL 11/10/16 06:30 12/10/16 06:29 11/11/16 06:52 Ondansetron HCl (Zofran) 4 mg Q6H PRN IVP Nausea & Vomiting 11/09/16 13:00 12/09/16 12:59 Sevelamer Carbonate (Renvela) 4,000 mg BEFORE MEALS ORAL 11/09/16 16:30 12/09/16 16:29 11/11/16 12:33 Sodium Chloride (Sodium Chloride 1000ml bag) 1,000 ml @ 500 mls/hr Q2H PRN IVLG sbp<90 during hd 11/12/16 12:40 11/12/16 23:59 Vitamin B Complex/ Vit C/Folic Acid (Nephrovite) 1 tab DAILY ORAL 11/10/16 09:00 12/10/16 08:59 11/11/16 09:19 Warfarin Sodium 1 ea 1 ea DAILY PRN MISC Per rx protocol 11/10/16 08:00 12/10/16 07:59 Allergies: Coded Allergies: No Known Allergies (Verified , 08/04/16) Objective Last Vital Signs Date Time Temp Pulse Resp B/P Pulse Ox O2 Delivery O2 Flow Rate FiO2 11/11/16 12:33 63 172/86 11/11/16 12:28 97.7 20 95 Room Air 11/11/16 04:00 21 Laboratory Tests Test 11/11/16 09:00 11/11/16 12:00 Troponin I < 0.30 ng/mL (<=0.30) Prothrombin Time 16.2 SEC (9.30-11.50) H Prothromb Time International Ratio 1.6 (0.9-1.1) H Intake and Output 11/10/16 11/11/16 19:00 07:00 Intake Total 660 ml Balance 660 ml Intake Oral 660 ml # Voids 2 # Bowel Movements 2 Assessment/Plan Assessment/Plan ASSESSMENT: Weakness Afib on amio and coumadin ESRD on HD HTN urgency 2/2 accelerated HTN hyperkalemia - improved history of breast cancer, status post lumpectomy LBBB PLAN: Telemetry Renal consulted HD today Coumadin will be continued for now per pharmacy. resume home medications US LEGS r/o DVT xray of both knees PT evaluation (high fall risk) d/c home tomorrow with MARQUIS DENISE M.D. Nov 11, 2016 12:54
[2016-11-11 13:00] VITALS: BP 153/77
[2016-11-11] MEDS ORDERED: Heparin Sod 1000 units/ml 10ml IV PRN (13:00)
--- NOTE | 2016-11-11 13:33 | Diagnostic Imaging Report ---
Indications: Right knee pain Technique: Portable AP and lateral views of the right knee. Findings: Comparison: None Lack of oblique views limits evaluation. Mildly increased density in suprapatellar bursa region. No fracture, dislocation, joint space widening , lytic destruction, periosteal reaction , surrounding soft tissue swelling/foreign body/gas, or other acute changes are identified. Patellofemoral and knee joint space is narrowed with marginal osteophyte formation. Gas lucency in lateral knee joint compartment. Mild medial subluxation of femur on tibia. Prominent arterial mural calcification. No other chronic change demonstrated. IMPRESSION: Questionable small suprapatellar effusion, nonspecific No other evidence of acute abnormality, with limitation as described Tricompartmental osteoarthritis with lateral knee compartment vacuum phenomenon Mild medial subluxation of femur on tibia, likely chronic Arteriosclerosis
--- NOTE | 2016-11-11 15:17 | Discharge Summary ---
Discharge Summary Hospital Course Date of Admission Nov 09, 2016 at 10:27 Date of Discharge november 11, 2016 Admitting Diagnosis WEAKNESS HPI DATE OF ADMISSION: 11/09/2016 DATE OF DISCHARGE: 11/11/2016 CHIEF COMPLAINT: weakness and hyperkalemia HISTORY OF PRESENT ILLNESS: This is a 81-year-old female with a history of end-stage renal disease, on hemodialysis every Tuesday, , and Tuesday who was BIBA after she states both of her legs "gave out" while walking with a walker. She has hyperkalemia with K 7. She was dialysed at the hospital and her K came down to 4.5. She was seen by physical therapy and was able to walk. Patient currently require mod.a x 1 for all transfers and gait/ambulation activities. Recommend SNF for short term rehab VS home with P.T depending on progress. refuses to go to SNF. DISCHARGE DIAGNOSES: ASSESSMENT: Weakness Afib on amio and coumadin ESRD on HD HTN urgency 2/2 accelerated HTN hyperkalemia - improved history of breast cancer, status post lumpectomy LBBB DISCHARGE MEDICATION: Please refer to discharge medication list. Discharge Discharge Disposition Patient was discharged to Discharge Diagnoses: BENJI GONZALEZ M.D. Nov 11, 2016 15:17
[2016-11-11 15:52] VITALS: BP 157/75
[2016-11-11] MEDS ORDERED: Warfarin Sodium 7.5mg ORAL ONE (17:00)
--- NOTE | 2016-11-11 23:06 | Diagnostic Imaging Report ---
APPROVED REPORT CPT Code: 51590 Present Symptoms Comments: Pain BILATERAL: Imaging reveals a patent deep venous system bilaterally. There is no evidence of thrombus within the femoral, popliteal or tibial segments. The greater saphenous veins are also within normal limits. Doppler indicates normal spontaneous flow within these segments.
[2016-11-12] MEDS ORDERED: Heparin 5000 units/ml inj INJ PRN (12:45)
== END 2016-11-11 17:17 | disposition home or self-care (01) | DRG 640 ==
LOC: EDBD 09:37 → EMR 10:01 → 2W 10:27 → UNDOADMIN 10:27 → EDBEDREQ 19:35 → 2W 22:11 → 2E 11-10 08:59
PROC: 5A1D00Z (ICD-10-PCS; principal; 2016-11-10)
DX: E87.5 Hyperkalemia (principal); N18.6 End stage renal disease; I12.0 Hypertensive chronic kidney disease with stage 5 chronic kidney disease or end stage renal disease; I48.91 Unspecified atrial fibrillation; Z99.2 Dependence on renal dialysis; I44.7 Left bundle-branch block, unspecified; Z85.3 Personal history of malignant neoplasm of breast; I16.0 Hypertensive urgency; Z79.01 Long term (current) use of anticoagulants; E11.9 Type 2 diabetes mellitus without complications; E03.9 Hypothyroidism, unspecified
CPT/HCPCS: 36415; 70450; 71010; 80048; 80053; 82550; 82553; 83036; 84484; 85025; 85610; 87081; 93005; 93970; 94640; 94664

== ENCOUNTER 2016-12-09 13:50 | Inpatient (IN) | payer MEDICARE, OTHER ==
[~2016-12-09] VITALS: Ht 172.7 cm; Wt 88.0 kg
[~2016-12-09 13:50] MED LIST changes: +NEPHROVITE1 TAB ORAL
[2016-12-09 14:09] VITALS: BP 128/66
[2016-12-09] MEDS ORDERED: Acetaminophen 500mg (ES) tab ORAL ONE (14:45)
[2016-12-09] MEDS ORDERED: Morphine Sulfate 2mg/ml Inj IM ONE (14:45)
--- NOTE | 2016-12-09 15:25 | Diagnostic Imaging Report ---
Indications: Left knee pain Technique: 3 views left knee. Findings: Comparison: None Suprapatellar bursa mildly distended and increased attenuation. No associated fat fluid level demonstrated. No fracture, dislocation, joint space widening , lytic destruction, periosteal reaction , surrounding soft tissue swelling/foreign body/gas, or other acute changes are identified. Femoral and knee joint space is narrowed with marginal osteophyte formation. Prominent arterial mural calcifications. IMPRESSION: Small suprapatellar effusion, nonspecific No other evidence of acute abnormality Tricompartmental osteoarthritis Arteriosclerosis.
[2016-12-09 16:20] LABS: EOSINOPHILS % (AUTO) 4.4 % (0.0-3.0); LYMPHOCYTES % (AUTO) 15.8 % (20.0-45.0); MEAN CORPUSCULAR VOLUME 97 FL (80-99); MEAN PLATELET VOLUME 7.1 FL (6.5-10.1); MONOCYTES % (AUTO) 17.2 % (1.0-10.0); NEUTROPHILS % (AUTO) 61.7 % (45.0-75.0); PLATELET COUNT 197 K/UL (150-450); RED BLOOD COUNT 4.08 M/UL (4.20-5.40); RED CELL DISTRIBUTION WIDTH 15.3 % (11.6-14.8); WHITE BLOOD COUNT 6.3 K/UL (4.8-10.8)
[2016-12-09 16:38] VITALS: BP 149/72
[2016-12-09 16:54] LABS: ALANINE AMINOTRANSFERASE 7 U/L (3-33); ALBUMIN/GLOBULIN RATIO 1.2 (1.0-2.7); ANION GAP 26 (5-15); ASPARTATE AMINO TRANSFERASE 14 U/L (5-40); CALCIUM 8.8 mg/dL (8.6-10.2); CARBON DIOXIDE 17 mEQ/L (20-30); CHLORIDE 90 mEQ/L (98-107); CREATININE 8.7 mg/dL (0.5-0.9); HEMOLYSIS 17; SODIUM 133 mEQ/L (135-145); TOTAL PROTEIN 6.8 g/dL (6.6-8.7)
[2016-12-09 16:55] LABS: TROPONIN I < 0.30 ng/mL (<=0.30)
[2016-12-09 17:04] LABS: POTASSIUM 6.6 mEQ/L (3.4-4.9)
[2016-12-09 17:06] LABS: CKMB 3.9 ng/mL (< 3.8)
[2016-12-09] MEDS ORDERED: Calcium Gluconate 1gm/10ml vial IVP ONE (17:15)
[2016-12-09] MEDS ORDERED: Sodium Polystyrene Sulfonate 15gm Powder ORAL ONE ×2 (17:15)
[2016-12-09 18:16] VITALS: BP 96/34
--- NOTE | 2016-12-09 18:55 | History & Physical ---
History and Physical History & Physicial DATE OF ADMISSION: 12/09/16 CHIEF COMPLAINT: weakness HISTORY OF PRESENT ILLNESS: This is a 81-year-old female with a history of end-stage renal disease, on hemodialysis every Tuesday, , and Tuesday, DM2, left knee pain BIBA because her left knee gave out and she missed HD. Her K was 6.6. She is on HD 4x/wk ,Tue, and Sat. She has been having whole body pain as well including both shoulders, back and arms. She states that her AV graft was not working well during last HD yesterday. Allergies: NKDA PAST MEDICAL HISTORY: Includes history of diabetes mellitus, atrial fibrillation, history of breast cancer, status post lumpectomy, and history of gastrointestinal stromal tumor. The patient has a dialysis access to left arm. MEDICATIONS: Active Scripts Medications Dose Route/Sig Max Daily Dose Days Date Category Dose Instructions Nephro-Abdoul Tablet (Vitamin B Complex/Vit C/Folic Acid) 0.8 Mg Tablet 1 Tab ORAL DAILY 11/09/16 Reported Coumadin* (Warfarin Sodium) 5 Mg Tablet 5 Mg ORAL DAILY 08/04/16 Reported Warfarin Sod* (Warfarin Sodium) 7.5 Mg Tablet 7 Mg ORAL MWF 08/04/16 Reported Normodyne* (Labetalol HCl) 100 Mg Tablet 2 Tab ORAL TID 07/22/16 Reported Diovan (Valsartan) 40 Mg Tablet Unknown Dose ORAL DAILY 07/22/16 Reported Cordarone* (Amiodarone HCl) 200 Mg Tablet 200 Mg ORAL DAILY 04/24/15 Rx Renvela (Sevelamer Carbonate) 800 Mg Tab 4,000 Mg PO BEFORE MEALS 04/20/15 Reported Sensipar* (Cinacalcet) 30 Mg Tablet 90 Mg ORAL DAILY 02/26/13 Reported Levothroid* (Levothyroxine Sodium) 25 Mcg Tablet 88 Mcg ORAL DAILY 02/26/13 Reported Take in the morning on an empty stomach, at least 30 minutes before food. Colace* (Docusate Sodium) 100 Mg Capsule 100 Mg ORAL BID 02/26/13 Reported ALLERGIES: No known drug allergies. SOCIAL HISTORY: No history of smoking or alcohol abuse. REVIEW OF SYSTEMS: As above. Last 24 Hour Vital Signs Date Time Temp Pulse Resp B/P Pulse Ox O2 Delivery O2 Flow Rate FiO2 12/09/16 18:25 98.1 58 18 96/34 99 Room Air 12/09/16 18:16 58 18 96/34 99 Room Air 12/09/16 16:38 59 18 149/72 99 Room Air 12/09/16 15:01 98.1 12/09/16 15:01 98.1 12/09/16 14:09 98.1 18 128/66 99 Room Air 12/09/16 14:00 98.1 51 18 128/66 99 Room Air PHYSICAL EXAMINATION: GENERAL: The patient is a moderately obese female, in no acute distress. GEN: NAD. awake and alert to person and place. HEENT: [place] conjunctivae. Anicteric sclerae. NECK: Supple. no JVD LUNGS: Clear to auscultation. no rales HEART: S1 and S2 without murmurs or rubs. ABDOMEN: Soft and nontender. EXTREMITIES: + 3 Bilateral pedal edema of feet especially ankles. no cyanosis NEURO: weakness in lower extremities. Motor for bilateral LE 2/5. LUE 2/5. LABORATORY FINDINGS: Laboratory Tests Test 12/09/16 16:00 White Blood Count 6.3 K/UL (4.8-10.8) Red Blood Count 4.08 M/UL (4.20-5.40) L Hemoglobin 12.3 G/DL (12.0-16.0) Hematocrit 39.6 % (37.0-47.0) Mean Corpuscular Volume 97 FL (80-99) Mean Corpuscular Hemoglobin 30.0 PG (27.0-31.0) Mean Corpuscular Hemoglobin Concent 31.0 G/DL (32.0-36.0) L Red Cell Distribution Width 15.3 % (11.6-14.8) H Platelet Count 197 K/UL (150-450) Mean Platelet Volume 7.1 FL (6.5-10.1) Neutrophils (%) (Auto) 61.7 % (45.0-75.0) Lymphocytes (%) (Auto) 15.8 % (20.0-45.0) L Monocytes (%) (Auto) 17.2 % (1.0-10.0) H Eosinophils (%) (Auto) 4.4 % (0.0-3.0) H Basophils (%) (Auto) 1.0 % (0.0-2.0) Sodium Level 133 mEQ/L (135-145) L Potassium Level 6.6 mEQ/L (3.4-4.9) *H Chloride Level 90 mEQ/L (98-107) L Carbon Dioxide Level 17 mEQ/L (20-30) L Anion Gap 26 (5-15) H Blood Urea Nitrogen 90 mg/dL (7-23) H Creatinine 8.7 mg/dL (0.5-0.9) H Estimat Glomerular Filtration Rate mL/min (>60) Glucose Level 118 mg/dL (74-106) H Calcium Level 8.8 mg/dL (8.6-10.2) Total Bilirubin 0.4 mg/dL (0.0-1.2) Aspartate Amino Transf (AST/SGOT) 14 U/L (5-40) Alanine Aminotransferase (ALT/SGPT) 7 U/L (3-33) Alkaline Phosphatase 97 U/L (35-104) Total Creatine Kinase 49 U/L (26-140) Creatine Kinase MB 3.9 ng/mL (< 3.8) H Creatine Kinase MB Relative Index 7.9 Troponin I < 0.30 ng/mL (<=0.30) Pro-B-Type Natriuretic Peptide 5250 pg/mL (0-450) H Total Protein 6.8 g/dL (6.6-8.7) Albumin 3.8 g/dL (3.5-5.2) Globulin 3.0 g/dL Albumin/Globulin Ratio 1.2 (1.0-2.7) . ASSESSMENT: Left knee pain and weakness Afib on amio and coumadin ESRD on HD HTN urgency 2/2 accelerated HTN hyperkalemia history of breast cancer, status post lumpectomy LBBB PLAN: Telemetry Renal consulted HD today Coumadin will be continued for now per pharmacy. resume home medications Ortho eval PT evaluation (high fall risk) BENJI GONZALEZ M.D. December 09, 2016 18:55
--- NOTE | 2016-12-09 19:31 | Emergency Room Report ---
History of Present Illness General Chief Complaint: Pain Source: EMS Present Illness HPI 81-year-old female presents ED for evaluation. Patient states that he is having a lot of pain in her left knee and fell because of the pain. Patient notes arthritis in both knees. Pain is a 7/10, throbbing, nonradiating. She states she feels very weak. Patient gets dialysis Tuesday and Tuesday. Patient states she had an additional dialysis session yesterday ( Tuesday). patient missed dialysis today because she came to ER. No other aggravating relieving factors. Denies chest pain or shortness of breath. Denies any other associated symptoms Allergies: Coded Allergies: No Known Allergies (Verified , 08/04/16) Patient History Past Medical History: DM, HTN, COPD, renal disease, dialysis Past Surgical History: none Pertinent Family History: none Social History: Denies: alcohol use, drug use, smoking Last Menstrual Period: N/A Now: No Immunizations: UTD Reviewed Nursing Documentation: PMH: Agreed, PSxH: Agreed Nursing Documentation-PMH Past Medical History: No History, Except For Hx Cardiac Problems: Yes Hx Hypertension: Yes Hx Pacemaker: No Hx Asthma: No Hx COPD: No Hx Diabetes: Yes Hx Cancer: Yes Hx Gastrointestinal Problems: No Hx Dialysis: Yes - //TUE Hx Neurological Problems: No Hx Cerebrovascular Accident: No Hx Seizures: No - CKD, KIDNEY FAILURE Review of Systems All Other Systems: negative except mentioned in HPI Physical Exam Vital Signs Date Time Temp Pulse Resp B/P Pulse Ox O2 Delivery O2 Flow Rate FiO2 12/09/16 14:00 98.1 51 18 128/66 99 Room Air Sp02 EP Interpretation: reviewed, normal General Appearance: no apparent distress, alert, GCS 15, non-toxic Head: normocephalic Eyes: bilateral eye PERRL, bilateral eye normal inspection ENT: hearing grossly normal, normal pharynx, no angioedema, normal voice Neck: full range of motion, supple/symm/no masses Respiratory: chest non-tender, lungs clear, normal breath sounds, speaking full sentences Cardiovascular #1: regular rate, rhythm, no edema Cardiovascular #2: 2+ carotid (R), 2+ carotid (L), 2+ radial (R), 2+ radial (L) , 2+ dorsalis pedis (R), 2+ dorsalis pedis (L) Gastrointestinal: normal bowel sounds, non tender, soft, non-distended, no guarding, no rebound Rectal: deferred Genitourinary: normal inspection, no CVA tenderness Musculoskeletal: back normal, gait/station normal, normal range of motion, non- tender Neurologic: alert, oriented x3, responsive, motor strength/tone normal, sensory intact, speech normal Psychiatric: judgement/insight normal, memory normal, mood/affect normal, no suicidal/homicidal ideation Reflexes: 3+ bicep (R), 3+ bicep (L), 3+ tricep (R), 3+ tricep (L), 3+ knee (R) , 3+ knee (L) Skin: normal color, no rash, warm/dry, well hydrated Lymphatic: no adenopathy Medical Decision Making Diagnostic Impression: Primary Impression: ESRD (end stage renal disease) Additional Impressions: Hyperkalemia, diminished renal excretion Osteoarthritis of left knee Qualified Codes: M17.12 - Unilateral primary osteoarthritis, left knee ER Course Hospital Course 81-year-old female presents to ED complaining of left knee pain. missed dialysis today. Complaining of weakness Differential diagnoses include: MT/unstable angina, V. tach, bradycardia, hyperkalemia, fluid overload Clinical course Patient placed on stretcher. on academic associate. After initial history and physical I ordered labs, EKG, pain medications, chest x-ray, left knee x-ray labs reviewed- potassium 6.6. BUN/Cr elevated. Hemoglobin/hematocrit normal. trop negative EKG - NSR, no acute changes CXR unremarkable L knee Xray - tricompartmental osteoarthritis Given Kayexalate, insulin D50 and calcium. Case discussed with Dr. Vizcarra and he agreed to accept the patient to his service for further care and support I. I feel this is a highly complex case requiring extensive working including EKG/Rhythm strip, Xray/CT/US, Blood/urine lab work, repeat exams while in ED, and administration of strong opiates/narcotics for pain control, admission to hospital or close patient follow up. Diagnosis - hyperkalemia, ESRD, osteoarthritis of L knee Admitted to telemetry in serious condition Labs Test 12/09/16 16:00 White Blood Count 6.3 K/UL (4.8-10.8) Red Blood Count 4.08 M/UL (4.20-5.40) Hemoglobin 12.3 G/DL (12.0-16.0) Hematocrit 39.6 % (37.0-47.0) Mean Corpuscular Volume 97 FL (80-99) Mean Corpuscular Hemoglobin 30.0 PG (27.0-31.0) Mean Corpuscular Hemoglobin Concent 31.0 G/DL (32.0-36.0) Red Cell Distribution Width 15.3 % (11.6-14.8) Platelet Count 197 K/UL (150-450) Mean Platelet Volume 7.1 FL (6.5-10.1) Neutrophils (%) (Auto) 61.7 % (45.0-75.0) Lymphocytes (%) (Auto) 15.8 % (20.0-45.0) Monocytes (%) (Auto) 17.2 % (1.0-10.0) Eosinophils (%) (Auto) 4.4 % (0.0-3.0) Basophils (%) (Auto) 1.0 % (0.0-2.0) Sodium Level 133 mEQ/L (135-145) Potassium Level 6.6 mEQ/L (3.4-4.9) Chloride Level 90 mEQ/L (98-107) Carbon Dioxide Level 17 mEQ/L (20-30) Anion Gap 26 (5-15) Blood Urea Nitrogen 90 mg/dL (7-23) Creatinine 8.7 mg/dL (0.5-0.9) Estimat Glomerular Filtration Rate mL/min (>60) Glucose Level 118 mg/dL (74-106) Calcium Level 8.8 mg/dL (8.6-10.2) Total Bilirubin 0.4 mg/dL (0.0-1.2) Aspartate Amino Transf (AST/SGOT) 14 U/L (5-40) Alanine Aminotransferase (ALT/SGPT) 7 U/L (3-33) Alkaline Phosphatase 97 U/L (35-104) Total Creatine Kinase 49 U/L (26-140) Creatine Kinase MB 3.9 ng/mL (< 3.8) Creatine Kinase MB Relative Index 7.9 Troponin I < 0.30 ng/mL (<=0.30) Pro-B-Type Natriuretic Peptide 5250 pg/mL (0-450) Total Protein 6.8 g/dL (6.6-8.7) Albumin 3.8 g/dL (3.5-5.2) Globulin 3.0 g/dL Albumin/Globulin Ratio 1.2 (1.0-2.7) EKG Diagnostic Results Rate: normal Rhythm: NSR ST Segments: no acute changes ASA given to the pt in ED: No Rhythm Strip Diag. Results EP Interpretation: yes Rhythm: NSR, no PVC's, no ectopy Chest X-Ray Diagnostic Results EP Interpretation: No Findings: no consolidation, no effusion, no pneumothorax, no acute cardiopulmonary disease Number of Views: 1 Last Vital Signs Date Time Temp Pulse Resp B/P Pulse Ox O2 Delivery O2 Flow Rate FiO2 12/09/16 18:25 98.1 58 18 96/34 99 Room Air Status: improved Disposition: ADMITTED INPATIENT Condition: Serious Referrals: NON PHYSICIAN (PCP) LATOYA SIU M.D. December 09, 2016 19:31
[2016-12-09 20:00] VITALS: BP 119/63
[2016-12-09 20:42] LABS: INR 1.8 (0.9-1.1); PROTHROMBIN TIME 18.7 SEC (9.30-11.50)
[2016-12-09] MEDS: Heparin 5000 units/ml inj SUBQ SCH (22:02)
[2016-12-10] VITALS (7 sets, daily range): BP systolic 97–167; BP diastolic 30–84
[2016-12-10 05:55] LABS: BASOPHILS % (AUTO) 1.4 % (0.0-2.0); EOSINOPHILS % (AUTO) 6.3 % (0.0-3.0); MEAN CORPUSCULAR HEMOGLOBIN 30.3 PG (27.0-31.0); MEAN CORPUSCULAR HGB CONC 31.6 G/DL (32.0-36.0); MEAN CORPUSCULAR VOLUME 96 FL (80-99); MEAN PLATELET VOLUME 7.1 FL (6.5-10.1); MONOCYTES % (AUTO) 15.5 % (1.0-10.0); NEUTROPHILS % (AUTO) 60.9 % (45.0-75.0); PLATELET COUNT 211 K/UL (150-450); RED BLOOD COUNT 4.01 M/UL (4.20-5.40); RED CELL DISTRIBUTION WIDTH 14.7 % (11.6-14.8); WHITE BLOOD COUNT 5.7 K/UL (4.8-10.8)
[2016-12-10 06:22] LABS: CALCIUM 8.4 mg/dL (8.6-10.2); CARBON DIOXIDE 17 mEQ/L (20-30); CHLORIDE 90 mEQ/L (98-107); CREATININE 8.8 mg/dL (0.5-0.9); HEMOLYSIS 7; SODIUM 133 mEQ/L (135-145)
[2016-12-10 06:28] LABS: ANION GAP 26 (5-15)
[2016-12-10 06:37] LABS: POTASSIUM 6.6 mEQ/L (3.4-4.9)
[2016-12-10] MEDS: Heparin 5000 units/ml inj SUBQ SCH ×2 (10:15→21:03)
--- NOTE | 2016-12-10 11:06 | Consultation ---
Consult Note Assessment/Plan Renal consult dictated # [id number] THOM CASTILLO December 10, 2016 11:06
--- NOTE | 2016-12-10 11:28 | Diagnostic Imaging Report ---
Indications: Chest pain Technique: Portable AP chest Findings: Comparison: 11/09/16 Cardiac silhouette remains enlarged. Pulmonary vascular redistribution persists. Lungs and pleura currently clear. Aortic arch calcification and elongation, calcified nodules in left lung apex and aortopulmonary window, surgical clips in the neck base, degenerative changes in both glenohumeral joints unchanged. IMPRESSION: No evidence of acute cardiopulmonary disease Resolution of previous left midlung subsegmental atelectasis, right basal pleural effusion Cardio megaly with evidence of pulmonary venous hypertension, stable Other stable chronic changes as described
--- NOTE | 2016-12-10 11:47 | Internal Med Progress Note ---
Subjective Physician Name Marquis Gonzalez Attending Physician Mio Ricks Current Medications Medications (Trade) Dose Ordered Sig/Donte Route PRN Reason Start Time Stop Time Status Last Admin Dose Admin Acetaminophen (Tylenol) 650 mg Q4H PRN ORAL Mild Pain (Pain Scale 1-3) 12/09/16 19:00 01/08/17 18:59 Dextrose (Dextrose 50%) STAT PRN IV Hypoglycemia 12/09/16 19:00 01/08/17 18:59 Gabapentin 300 mg 300 mg DAILY ORAL 12/10/16 09:00 01/09/17 08:59 12/10/16 10:14 Heparin Sodium (Porcine) (Heparin 5000 units/ml) 5,000 units EVERY 12 HOURS SUBQ 12/09/16 22:00 01/08/17 21:59 12/10/16 10:15 Heparin Sodium (Porcine) (Heparin 5000 units/ml) 5,000 units POSTHD INJ 12/11/16 11:30 01/10/17 11:29 UNV Heparin Sodium (Porcine) (Heparin Sod 1000 units/ml 10ml) 2,000 unit ONCE ONCE IV 12/11/16 11:30 12/11/16 11:31 UNV Meloxicam (Mobic) 7.5 mg DAILY ORAL 12/10/16 07:00 01/09/17 06:59 12/10/16 10:16 Ondansetron HCl (Zofran) 4 mg Q6H PRN IVP Nausea & Vomiting 12/09/16 19:00 01/08/17 18:59 Sodium Chloride (Sodium Chloride 1000ml bag) 1,000 ml @ 500 mls/hr Q2H PRN IVLG sbp<90 during hd 12/11/16 11:20 01/10/17 11:19 UNV Allergies: Coded Allergies: No Known Allergies (Verified , 08/04/16) All Systems: reviewed and negative except above - L knee pain Objective Last Vital Signs Date Time Temp Pulse Resp B/P Pulse Ox O2 Delivery O2 Flow Rate FiO2 12/10/16 08:35 Room Air 12/10/16 08:33 97.7 70 20 106/45 97 Laboratory Tests Test 12/09/16 16:00 12/10/16 05:00 White Blood Count 6.3 K/UL (4.8-10.8) 5.7 K/UL (4.8-10.8) Red Blood Count 4.08 M/UL (4.20-5.40) L 4.01 M/UL (4.20-5.40) L Hemoglobin 12.3 G/DL (12.0-16.0) 12.2 G/DL (12.0-16.0) Hematocrit 39.6 % (37.0-47.0) 38.5 % (37.0-47.0) Mean Corpuscular Volume 97 FL (80-99) 96 FL (80-99) Mean Corpuscular Hemoglobin 30.0 PG (27.0-31.0) 30.3 PG (27.0-31.0) Mean Corpuscular Hemoglobin Concent 31.0 G/DL (32.0-36.0) L 31.6 G/DL (32.0-36.0) L Red Cell Distribution Width 15.3 % (11.6-14.8) H 14.7 % (11.6-14.8) Platelet Count 197 K/UL (150-450) 211 K/UL (150-450) Mean Platelet Volume 7.1 FL (6.5-10.1) 7.1 FL (6.5-10.1) Neutrophils (%) (Auto) 61.7 % (45.0-75.0) 60.9 % (45.0-75.0) Lymphocytes (%) (Auto) 15.8 % (20.0-45.0) L 16.0 % (20.0-45.0) L Monocytes (%) (Auto) 17.2 % (1.0-10.0) H 15.5 % (1.0-10.0) H Eosinophils (%) (Auto) 4.4 % (0.0-3.0) H 6.3 % (0.0-3.0) H Basophils (%) (Auto) 1.0 % (0.0-2.0) 1.4 % (0.0-2.0) Prothrombin Time 18.7 SEC (9.30-11.50) H Prothromb Time International Ratio 1.8 (0.9-1.1) H Sodium Level 133 mEQ/L (135-145) L 133 mEQ/L (135-145) L Potassium Level 6.6 mEQ/L (3.4-4.9) *H 6.6 mEQ/L (3.4-4.9) *H Chloride Level 90 mEQ/L (98-107) L 90 mEQ/L (98-107) L Carbon Dioxide Level 17 mEQ/L (20-30) L 17 mEQ/L (20-30) L Anion Gap 26 (5-15) H 26 (5-15) H Blood Urea Nitrogen 90 mg/dL (7-23) H 95 mg/dL (7-23) H Creatinine 8.7 mg/dL (0.5-0.9) H 8.8 mg/dL (0.5-0.9) H Estimat Glomerular Filtration Rate mL/min (>60) mL/min (>60) Glucose Level 118 mg/dL (74-106) H 78 mg/dL (74-106) Calcium Level 8.8 mg/dL (8.6-10.2) 8.4 mg/dL (8.6-10.2) L Total Bilirubin 0.4 mg/dL (0.0-1.2) Aspartate Amino Transf (AST/SGOT) 14 U/L (5-40) Alanine Aminotransferase (ALT/SGPT) 7 U/L (3-33) Alkaline Phosphatase 97 U/L (35-104) Total Creatine Kinase 49 U/L (26-140) Creatine Kinase MB 3.9 ng/mL (< 3.8) H Creatine Kinase MB Relative Index 7.9 Troponin I < 0.30 ng/mL (<=0.30) Pro-B-Type Natriuretic Peptide 5250 pg/mL (0-450) H Total Protein 6.8 g/dL (6.6-8.7) Albumin 3.8 g/dL (3.5-5.2) Globulin 3.0 g/dL Albumin/Globulin Ratio 1.2 (1.0-2.7) Intake and Output 12/09/16 12/10/16 19:00 07:00 Intake Total 0 ml 120 ml Balance 0 ml 120 ml Intake Oral 0 ml 120 ml Objective gen - NAD. awake HEENT - NC/AT NECK - supple. no JVD CVS - RRR. nl S1. S2 LUNGS - CTA b/l; no crackles ABD - NT/ND EXT - no c/c/e Assessment/Plan Assessment/Plan ASSESSMENT: Left knee pain and weakness Afib on amio and coumadin ESRD on HD HTN urgency 2/2 accelerated HTN hyperkalemia history of breast cancer, status post lumpectomy LBBB PLAN: Telemetry Renal consulted HD today Coumadin will be continued for now per pharmacy. resume home medications Ortho eval PT evaluation (high fall risk) d/c planning for tomorrow MARQUIS GONZALEZ M.D. December 10, 2016 11:47
--- NOTE | 2016-12-10 18:46 | Consultation ---
DATE OF CONSULTATION: NEPHROLOGY CONSULTATION REFERRING PHYSICIAN: Marquis Vizcarra M.D. REASON FOR CONSULTATION: End-stage renal disease, requiring hemodialysis. HISTORY OF PRESENT ILLNESS: This is a 81-year-old female with history of end-stage renal disease, on hemodialysis every Tuesday, , and Tuesday. The patient is known to me from multiple admissions in the past. The patient's patient accounts clerk is Dr. Lopez and the patient usually gets dialysis at [facility]. She states that she after dialysis last Tuesday, also again extra one on Tuesday and on she did not go because she was feeling weak. She came to the emergency room last night because of the left knee pain, which was giving out and she was found to have hyperkalemia, which she usually has and she presents to the emergency room here. Her potassium was 6.6. I ordered dialysis and the patient had it early this morning. PAST MEDICAL HISTORY: History of atrial fibrillation, diabetes mellitus, history of breast cancer, status post lumpectomy, history of gastrointestinal stromal tumor, and the patient has a left arm fistula. MEDICATIONS: Reviewed in EMR. ALLERGIES: No known drug allergies. SOCIAL HISTORY: No history of smoking or alcohol abuse. REVIEW OF SYSTEMS: As above. PHYSICAL EXAMINATION: GENERAL: The patient is an obese female, in no acute distress. VITAL SIGNS: Blood pressure is 106/45, pulse 72, temperature 97.7 degrees, and respiratory rate is 20. HEENT: Fallis conjunctivae. Anicteric sclerae. NECK: Supple. LUNGS: Clear to auscultation. HEART: S1 and S2 without murmurs or rubs. ABDOMEN: Soft and nontender. EXTREMITIES: Bilateral pedal edema. LABORATORY AND DIAGNOSTIC DATA: The CBC shows WBC of 5.7, hematocrit 38.5, hemoglobin is 12.2, and platelet is 211,000. Chemistry panel shows a serum sodium 133, potassium 6.6, chloride 90, CO2 17, BUN is 95 and creatinine 8.8. Calcium is 8.4. ASSESSMENT: This is a 81-year-old female with history of end-stage renal disease, was admitted with weakness. She does have hyperkalemia. She was dialyzed this morning. PLAN: The patient will have another dialysis tomorrow. The laboratories will be followed specifically the serum potassium. I also talked to her about her diet, probably she eats lots of fluids, which would contain high potassium. I advised her to compliant with her diet. Also, if that does not work, she may need to be on some low-dose Kayexalate on a daily basis to avoid her hyperkalemia. Thank you very much, Dr. Vizcarra, for this consultation. Billy Emmanuel M.D. DR: TRISHA JOB#: [id number] CC: LETICIA
[2016-12-10] MEDS ORDERED: Miralax 17gm pkt ORAL SCH (21:00)
[2016-12-11] VITALS: BP 126/69
[2016-12-11 04:00] VITALS: BP 114/60
[2016-12-11] MEDS ORDERED: Heparin 5000 units/ml inj INJ SCH (06:00)
[2016-12-11] MEDS ORDERED: Heparin Sod 1000 units/ml 10ml IV SCH (06:00)
[2016-12-11 07:59] LABS: CALCIUM 9.2 mg/dL (8.6-10.2); CHLORIDE 88 mEQ/L (98-107); CREATININE 9.2 mg/dL (0.5-0.9); HEMOLYSIS 3; SODIUM 136 mEQ/L (135-145)
[2016-12-11 08:09] VITALS: BP 140/55
[2016-12-11 08:25] LABS: POTASSIUM 5.9 mEQ/L (3.4-4.9)
[2016-12-11 08:26] LABS: ANION GAP 25 (5-15); CARBON DIOXIDE 23 mEQ/L (20-30)
[2016-12-11] MEDS: Heparin 5000 units/ml inj SUBQ SCH (08:44)
[2016-12-11 10:15] LABS: INR 1.3 (0.9-1.1); PROTHROMBIN TIME 13.3 SEC (9.30-11.50)
[2016-12-11 11:15] VITALS: BP 122/75
--- NOTE | 2016-12-11 11:21 | Nephrology Progress Note ---
Assessment/Plan Problem List: (1) ESRD (end stage renal disease) (2) DM (diabetes mellitus) (3) HTN (hypertension) (4) Hyperkalemia, diminished renal excretion Plan Hd as tolerated DC today Subjective Subjective seen on dialysis Objective Objective Last 24 Hour Vital Signs Date Time Temp Pulse Resp B/P Pulse Ox O2 Delivery O2 Flow Rate FiO2 12/11/16 11:15 97.7 63 18 122/75 100 Room Air 12/11/16 08:09 97.2 56 18 140/55 98 Room Air 12/11/16 07:55 Room Air 12/11/16 07:46 59 12/11/16 04:00 63 12/11/16 04:00 97.0 63 20 114/60 98 Nasal Cannula 2.0 12/11/16 00:00 65 12/11/16 00:00 97.0 65 20 126/69 97 Nasal Cannula 2.0 12/10/16 20:20 97.0 65 20 127/70 99 Nasal Cannula 2.0 12/10/16 20:00 65 12/10/16 16:00 64 12/10/16 16:00 97.9 67 17 97/54 12/10/16 12:00 97.2 65 18 97/57 98 Room Air 12/10/16 12:00 64 Intake and Output 12/10/16 12/11/16 19:00 07:00 Intake Total 920 ml 240 ml Output Total 1750 ml Balance -830 ml 240 ml Intake Oral 920 ml 240 ml Output Hemodialysis UF 1750 ml # Bowel Movements 3 Laboratory Tests 12/11/16 06:45: Sodium Level 136, Potassium Level 5.9H, Chloride Level 88L, Carbon Dioxide Level 23, Anion Gap 25H, Blood Urea Nitrogen 95H, Creatinine 9.2H, Estimat Glomerular Filtration Rate , Glucose Level 87, Calcium Level 9.2 12/11/16 07:00: Prothrombin Time 13.3H, Prothromb Time International Ratio 1.3H Height (Feet): 5 Height (Inches): 8.00 Weight (Pounds): 98 Cardiovascular: normal rate Respiratory/Chest: lungs clear Extremities: moderate edema THOM CASTILLO December 11, 2016 11:21
[2016-12-11 15:19] VITALS: BP 121/74
[2016-12-11] MEDS ORDERED: Warfarin Sodium 5mg ORAL SCH (17:00)
--- NOTE | 2016-12-12 14:50 | Cardiology Report ---
APPROVED REPORT EKG Measurement Heart [id number] IN 240P94 [id number] Sinus bradycardia with 1st degree AV block Left axis deviation Nonspecific intraventricular block Possible Lateral infarct, age undetermined Abnormal ECG
== END 2016-12-11 17:20 | disposition home or self-care (01) | DRG 640 ==
LOC: EDBD 13:50 → EDUNIT# 13:50 → EMR 14:23 → 2E 16:18 → INTOOBSV 16:18 → EDBEDREQSVC 17:05 → EDBEDREQ 17:41 → OBSVTOIN 20:38 → INTOOBSV 22:15 → OBSVTOIN 22:15
PROC: 5A1D00Z (ICD-10-PCS; principal; 2016-12-10)
DX: E87.5 Hyperkalemia (principal); N18.6 End stage renal disease; I12.0 Hypertensive chronic kidney disease with stage 5 chronic kidney disease or end stage renal disease; E11.22 Type 2 diabetes mellitus with diabetic chronic kidney disease; I48.91 Unspecified atrial fibrillation; I16.0 Hypertensive urgency; Z99.2 Dependence on renal dialysis; Z79.01 Long term (current) use of anticoagulants; Z85.3 Personal history of malignant neoplasm of breast
CPT/HCPCS: 36415; 71010; 80048; 80053; 82550; 82553; 82962; 83880; 84484; 85025; 85610; 87081; 93005

== ENCOUNTER 2017-05-11 22:28 | Emergency (ER) | payer MEDICARE, OTHER ==
[~2017-05-11] VITALS: Ht 172.7 cm; Wt 90.7 kg
[2017-05-11 22:41] VITALS: BP 104/47
[2017-05-11] MEDS ORDERED: ANASTROZOLE1 MG PO (22:52)
[2017-05-11] MEDS ORDERED: DIGOXIN125 MCG ORAL (22:52)
[2017-05-11] MEDS ORDERED: Lactulose 20gm/30ml UDC ORAL ONE (23:00)
--- NOTE | 2017-05-11 23:11 | Emergency Room Report ---
History of Present Illness General Chief Complaint: Constipation Source: Patient Present Illness HPI Patient is 82-year-old female presented after increased lower discomfort as well as shortness of breath. Patient has prior history of end-stage renal disease is on dialysis. Patient takes Coumadin for prior DVT. The patient was reportedly dialyzed on Tuesday. She normally gets dialysis 4 days a week Tuesday and Tuesday. The patient denied any fever. She denies vomiting. She reports being in street short of breath since this morning. She started having taken stool softeners without relief Allergies: Coded Allergies: No Known Allergies (Verified , 08/04/16) Patient History Past Medical History: see triage record Now: No Reviewed Nursing Documentation: PMH: Agreed, PSxH: Agreed Nursing Documentation-PMH Hx Cardiac Problems: No - CHF Hx Hypertension: Yes Hx Pacemaker: No Hx Asthma: No Hx COPD: No Hx Diabetes: Yes Hx Cancer: Yes Hx Gastrointestinal Problems: No Hx Dialysis: Yes - /// Hx Neurological Problems: No Hx Cerebrovascular Accident: No Hx Seizures: No - CKD, KIDNEY FAILURE Review of Systems All Other Systems: negative except mentioned in HPI Physical Exam Vital Signs Date Time Temp Pulse Resp B/P (MAP) Pulse Ox O2 Delivery O2 Flow Rate FiO2 05/11/17 22:32 97.7 64 12 104/47 97 Room Air Sp02 EP Interpretation: reviewed, normal General Appearance: normal inspection, well appearing, no apparent distress, alert, GCS 15 Head: atraumatic ENT: normal ENT inspection, hearing grossly normal, normal voice Neck: normal inspection, full range of motion, supple, no bony tend Respiratory: normal inspection, lungs clear, normal breath sounds, no respiratory distress, no retraction, no wheezing Cardiovascular #1: regular rate, rhythm, no edema Gastrointestinal: normal inspection, normal bowel sounds, non tender, soft, no guarding, no hernia Genitourinary: no CVA tenderness Musculoskeletal: normal inspection, back normal, normal range of motion Neurologic: normal inspection, alert, oriented x3, responsive, line cleaner III-XII nml as tested, speech normal Psychiatric: normal inspection, judgement/insight normal, mood/affect normal Skin: normal inspection, normal color, no rash Medical Decision Making Diagnostic Impression: Primary Impression: ESRD (end stage renal disease) Additional Impression: Constipation ER Course Patient presented for rectal pain. Differential diagnosis included wasn't limited to constipation, ventral hernia, fecal impaction, bowel obstruction among others. The patient reports having rectal pain. She does not have any evident bleeding. Laboratory studies are unremarkable except for elevated BUN/ creatinine consistent patient's chronic renal disease.. KUB interpreted by me showed some evidence of fecal retention. Patient was given a mineral enema. Patient stated that she felt better wanted to go home. Patient was advised followup with dialysis in the morning.The patient is advised to follow up with primary care doctor in 1-2 days. Patient is advised to return if any worsening condition or if any changes in status that are concerning. Labs Test 05/11/17 23:25 White Blood Count 6.3 K/UL (4.8-10.8) Red Blood Count 3.84 M/UL (4.20-5.40) Hemoglobin 11.9 G/DL (12.0-16.0) Hematocrit 37.7 % (37.0-47.0) Mean Corpuscular Volume 98 FL (80-99) Mean Corpuscular Hemoglobin 31.0 PG (27.0-31.0) Mean Corpuscular Hemoglobin Concent 31.5 G/DL (32.0-36.0) Red Cell Distribution Width 14.3 % (11.6-14.8) Platelet Count 187 K/UL (150-450) Mean Platelet Volume 7.6 FL (6.5-10.1) Neutrophils (%) (Auto) 65.3 % (45.0-75.0) Lymphocytes (%) (Auto) 17.1 % (20.0-45.0) Monocytes (%) (Auto) 14.2 % (1.0-10.0) Eosinophils (%) (Auto) 2.5 % (0.0-3.0) Basophils (%) (Auto) 1.0 % (0.0-2.0) Prothrombin Time 23.3 SEC (9.30-11.50) Prothromb Time International Ratio 2.2 (0.9-1.1) Activated Partial Thromboplast Time 31 SEC (23-33) Sodium Level 137 MMOL/L (136-145) Potassium Level 4.6 MMOL/L (3.5-5.1) Chloride Level 100 MMOL/L (98-107) Carbon Dioxide Level 27 MMOL/L (21-32) Anion Gap 10 mmol/L (5-15) Blood Urea Nitrogen 39 mg/dL (7-18) Creatinine 6.1 MG/DL (0.55-1.30) Estimat Glomerular Filtration Rate mL/min (>60) Glucose Level 149 MG/DL (74-106) Calcium Level 10.7 MG/DL (8.5-10.1) Total Bilirubin 0.4 MG/DL (0.2-1.0) Aspartate Amino Transf (AST/SGOT) 13 U/L (15-37) Alanine Aminotransferase (ALT/SGPT) 7 U/L (12-78) Alkaline Phosphatase 124 U/L (46-116) Total Protein 7.1 G/DL (6.4-8.2) Albumin 3.1 G/DL (3.4-5.0) Globulin 4.0 g/dL Albumin/Globulin Ratio 0.8 (1.0-2.7) EKG Diagnostic Results Rate: normal Rhythm: NSR Last Vital Signs Date Time Temp Pulse Resp B/P (MAP) Pulse Ox O2 Delivery O2 Flow Rate FiO2 05/11/17 22:41 97.7 64 20 104/47 100 Room Air Status: improved Disposition: HOME, SELF-CARE Condition: Stable Referrals: NOT CHOSEN IPA/,REFERRING (PCP) Partha Valencia May 11, 2017 23:11
[2017-05-11 23:57] LABS: EOSINOPHILS % (AUTO) 2.5 % (0.0-3.0); LYMPHOCYTES % (AUTO) 17.1 % (20.0-45.0); MEAN CORPUSCULAR HGB CONC 31.5 G/DL (32.0-36.0); MEAN CORPUSCULAR VOLUME 98 FL (80-99); MEAN PLATELET VOLUME 7.6 FL (6.5-10.1); MONOCYTES % (AUTO) 14.2 % (1.0-10.0); NEUTROPHILS % (AUTO) 65.3 % (45.0-75.0); PLATELET COUNT 187 K/UL (150-450); RED BLOOD COUNT 3.84 M/UL (4.20-5.40); RED CELL DISTRIBUTION WIDTH 14.3 % (11.6-14.8); WHITE BLOOD COUNT 6.3 K/UL (4.8-10.8)
[2017-05-12 00:10] LABS: INR 2.2 (0.9-1.1); PROTHROMBIN TIME 23.3 SEC (9.30-11.50)
[2017-05-12 00:15] LABS: ALANINE AMINOTRANSFERASE 7 U/L (12-78); ALBUMIN/GLOBULIN RATIO 0.8 (1.0-2.7); ANION GAP 10 mmol/L (5-15); ASPARTATE AMINO TRANSFERASE 13 U/L (15-37); CALCIUM 10.7 MG/DL (8.5-10.1); CARBON DIOXIDE 27 MMOL/L (21-32); CHLORIDE 100 MMOL/L (98-107); CREATININE 6.1 MG/DL (0.55-1.30); POTASSIUM 4.6 MMOL/L (3.5-5.1); SODIUM 137 MMOL/L (136-145); TOTAL PROTEIN 7.1 G/DL (6.4-8.2)
[2017-05-12 00:41] VITALS: BP 99/49
[2017-05-12] MEDS ORDERED: Fleet's Mineral Oil Enema RECTAL ONE (00:45)
[2017-05-12 02:41] VITALS: BP 105/50
[2017-05-12 04:41] VITALS: BP 99/51
[2017-05-12 05:18] VITALS: BP 105/50
--- NOTE | 2017-05-12 12:09 | Diagnostic Imaging Report ---
Indication: Abdominal pain Comparison: 07/27/13 Single view of the abdomen obtained Findings: Aorta is moderately tortuous and calcified. Bones are osteopenic. Bowel gas pattern is nonspecific. Calcific focus in the midline pelvis possibly a uterine fibroid vs. bladder calculus. Impression: No acute findings appreciated.
--- NOTE | 2017-05-16 12:10 | Cardiology Report ---
APPROVED REPORT EKG Measurement Heart [id number] Sinus rhythm with 1st degree AV block Cannot rule out Anterior infarct, age undetermined Abnormal ECG
== END 2017-05-12 05:00 | disposition home or self-care (01) ==
LOC: EDBD 22:28 → EMR 22:55
DX: I12.0 Hypertensive chronic kidney disease with stage 5 chronic kidney disease or end stage renal disease (principal); N18.6 End stage renal disease; Z99.2 Dependence on renal dialysis; K59.00 Constipation, unspecified; I50.9 Heart failure, unspecified; E11.9 Type 2 diabetes mellitus without complications
CPT/HCPCS: 36415; 74000; 80053; 85025; 85610; 85730; 93005; 99283

== ENCOUNTER 2017-07-26 08:39 | Inpatient (IN) | payer MEDICARE, OTHER ==
[~2017-07-26] VITALS: Ht 172.7 cm; Wt 88.9 kg
[2017-07-26] VITALS (7 sets, daily range): BP systolic 122–180; BP diastolic 60–94
[~2017-07-26 08:39] MED LIST changes: +ANASTROZOLE1 MG PO; +DIGOXIN125 MCG ORAL
[2017-07-26 09:21] LABS: BASOPHILS % (AUTO) 0.8 % (0.0-2.0); HEMATOCRIT 33.2 % (37.0-47.0); HEMOGLOBIN 10.2 G/DL (12.0-16.0); LYMPHOCYTES % (AUTO) 14.2 % (20.0-45.0); MEAN CORPUSCULAR VOLUME 97 FL (80-99); MONOCYTES % (AUTO) 9.6 % (1.0-10.0); NEUTROPHILS % (AUTO) 72.5 % (45.0-75.0); PLATELET COUNT 141 K/UL (150-450); RED BLOOD COUNT 3.43 M/UL (4.20-5.40); RED CELL DISTRIBUTION WIDTH 15.5 % (11.6-14.8); WHITE BLOOD COUNT 5.7 K/UL (4.8-10.8)
[2017-07-26 09:32] LABS: ANION GAP 12 mmol/L (5-15); BLOOD UREA NITROGEN 48 mg/dL (7-18); CALCIUM 7.7 MG/DL (8.5-10.1); CARBON DIOXIDE 25 MMOL/L (21-32); CHLORIDE 101 MMOL/L (98-107); CREATININE 7.3 MG/DL (0.55-1.30); POTASSIUM 5.8 MMOL/L (3.5-5.1); SODIUM 138 MMOL/L (136-145)
--- NOTE | 2017-07-26 09:40 | Emergency Room Report ---
History of Present Illness General Chief Complaint: Dyspnea/Respdistress Source: Patient, EMS Present Illness HPI 82-year-old female, history of breast CA status post right-sided lump ectomy performed last week at [facility], with SYDNEY drain, ESRD on dialysis, last dialysis was Tuesday, patient is to today,, with a left-sided AV fistula, ?afib on coumadin and amio, presenting with shortness of breath Patient states that she became increasingly short of breath today, unable to walk without getting short of breath. Denies any fever chills or cough. Has been ambulatory. Denies any history of PE or DVT Allergies: Coded Allergies: No Known Allergies (Verified , 08/04/16) Patient History Past Medical History: see triage record Past Surgical History: none Pertinent Family History: none Reviewed Nursing Documentation: PMH: Agreed, PSxH: Agreed Nursing Documentation-PMH Hx Cardiac Problems: No - CHF Hx Hypertension: Yes Hx Pacemaker: No Hx Asthma: No Hx COPD: No Hx Diabetes: Yes Hx Cancer: Yes - Right breast Hx Gastrointestinal Problems: No Hx Dialysis: Yes - Last dialyzed 07/23/17 Hx Neurological Problems: No Hx Cerebrovascular Accident: No Hx Seizures: No - CKD, KIDNEY FAILURE Review of Systems All Other Systems: negative except mentioned in HPI Physical Exam Vital Signs Date Time Temp Pulse Resp B/P (MAP) Pulse Ox O2 Delivery O2 Flow Rate FiO2 07/26/17 08:29 97.7 66 18 203/108 98 Room Air Sp02 EP Interpretation: reviewed, normal General Appearance: moderate distress, other - sob however speaking in complete sentences Head: normocephalic, atraumatic Eyes: bilateral eye normal inspection, bilateral eye PERRL, bilateral eye EOMI ENT: normal ENT inspection, normal pharynx, normal voice, moist mucus membranes Neck: normal inspection, full range of motion, supple Respiratory: other - R sided crackles. L clear. no wheezing. Cardiovascular #1: regular rate, rhythm, edema Cardiovascular #2: 2+ radial (R), 2+ radial (L) Gastrointestinal: normal inspection, non tender, soft, non-distended, no guarding Musculoskeletal: back normal, normal range of motion, non-tender, other - L AV fistula, R sided SYDNEY drain around breast Neurologic: normal inspection, alert, oriented x3, responsive, motor strength/ tone normal, sensory intact, speech normal Psychiatric: normal inspection, judgement/insight normal, memory normal Skin: normal inspection, normal color, no rash, warm/dry, well hydrated, normal turgor Procedures Critical Care Time Critical Care Time 40 minutes of CC time 82-year-old female, end stage renal disease on dialysis, with shortness of breath VS: Tachypnea Airway patent. Not hypoxic. PLAN: IV access, labs, lactate, troponin, Blood/Urine Cx, Abx, IVF Anticipate admission to Tele vs. [facility] CC time also includes review of labs, review of EMR, discussion with family and paperwork from SNF, d/w hospitalist CC could include dosing of pressors, additional Abx CC time does not include procedures Medical Decision Making Diagnostic Impression: Primary Impression: Dyspnea Additional Impressions: ESRD (end stage renal disease) Hyperkalemia HCAP (healthcare-associated pneumonia) CHF (congestive heart failure) ER Course 82-year-old female, end stage renal disease on dialysis, presenting with dyspnea and cough DDX: Pneumonia, viral URI, fluid overload, ACS Plan: Obtain labs, ua, EKG, CXR ER course: Patient has been monitored during ED stay, HD stable Hyperkalemia noted, treated with meds Also with clinical R sided pna - given abx to cover for HCAP Disposition: Patient is to be admitted to telemetry D/W hospitalist Dr Anderson covering for Dr Malloy Please note that this Emergency Department Report was dictated using [employer] wel[employer] technology software, occasionally this can lead to erroneous entry secondary to interpretation by the dictation equipment. EKG Diagnostic Results EP Interpretation: Yes Rate: normal Rhythm: NSR ST Segments: No acute changes ASA given to patient: No Rhythm Strip EP Interpretation: Yes Rate: 70 Rhythm: NSR, no PVCs, no ectopy Chest X-ray CXR: Ordered: Yes 1 view Indication:sob EP interpretation: Yes Interpretation: Cardiomegaly, pulmonary vascular congestion, superimposed pneumonia cannot be excluded Impression: Cardiomegaly/CHF Electronically signed by Juancarlos Polk MD Laboratory Tests Test 07/26/17 09:03 07/26/17 09:41 White Blood Count 5.7 K/UL (4.8-10.8) Red Blood Count 3.43 M/UL (4.20-5.40) L Hemoglobin 10.2 G/DL (12.0-16.0) L Hematocrit 33.2 % (37.0-47.0) L Mean Corpuscular Volume 97 FL (80-99) Mean Corpuscular Hemoglobin 29.8 PG (27.0-31.0) Mean Corpuscular Hemoglobin Concent 30.8 G/DL (32.0-36.0) L Red Cell Distribution Width 15.5 % (11.6-14.8) H Platelet Count 141 K/UL (150-450) L Mean Platelet Volume 8.1 FL (6.5-10.1) Neutrophils (%) (Auto) 72.5 % (45.0-75.0) Lymphocytes (%) (Auto) 14.2 % (20.0-45.0) L Monocytes (%) (Auto) 9.6 % (1.0-10.0) Eosinophils (%) (Auto) 3.0 % (0.0-3.0) Basophils (%) (Auto) 0.8 % (0.0-2.0) Sodium Level 138 MMOL/L (136-145) Potassium Level 5.8 MMOL/L (3.5-5.1) H Chloride Level 101 MMOL/L (98-107) Carbon Dioxide Level 25 MMOL/L (21-32) Anion Gap 12 mmol/L (5-15) Blood Urea Nitrogen 48 mg/dL (7-18) H Creatinine 7.3 MG/DL (0.55-1.30) H Estimate Glomerular Filtration Rate mL/min (>60) Glucose Level 84 MG/DL (74-106) Calcium Level 7.7 MG/DL (8.5-10.1) L Total Bilirubin 0.6 MG/DL (0.2-1.0) Aspartate Amino Transferase (AST) 23 U/L (15-37) Alanine Aminotransferase (ALT) < 6 U/L (12-78) L Alkaline Phosphatase 133 U/L (46-116) H Total Creatine Kinase 47 U/L (26-308) Creatine Kinase MB 0.9 NG/ML (0.0-3.6) Creatine Kinase MB Relative Index 1.9 Troponin I 0.023 ng/mL (0.000-0.056) Pro-B-Type Natriuretic Peptide 62391 pg/mL (0-125) H Total Protein 7.0 G/DL (6.4-8.2) Albumin 3.1 G/DL (3.4-5.0) L Globulin 3.9 g/dL Albumin/Globulin Ratio 0.8 (1.0-2.7) L Prothrombin Time 10.0 SEC (9.30-11.50) Prothrombin Time INR 1.0 (0.9-1.1) PTT 27 SEC (23-33) Microbiology Date/Time Source Procedure Growth Status 07/26/17 10:41 Nasal Nares Influenza Types A,B Antigen (SETH) - Final Complete Last Vital Signs Date Time Temp Pulse Resp B/P (MAP) Pulse Ox O2 Delivery O2 Flow Rate FiO2 07/26/17 08:29 97.7 66 18 203/108 98 Room Air Disposition: ADMITTED INPATIENT Condition: Serious Referrals: NOT CHOSEN CELENA/,REFERRING (PCP) Juancarlos Polk M.D. Jul 26, 2017 09:40
--- NOTE | 2017-07-26 09:42 | Diagnostic Imaging Report ---
Indication: Dyspnea Technique: XRAY Chest 1v Comparison: 12/09/2016 Findings: Stable cardiomegaly. There is mild interstitial opacification/edema with perihilar opacity. There is patchy opacity in the right base. There linear opacities in the bilateral mid lungs. There is a small layering right pleural effusion. There is no definite pneumothorax. Osteopenia with degenerative changes of the thoracic spine. No acute osseous abnormality seen. Degenerative changes of the bilateral shoulders again noted. Impression: Cardiomegaly with interstitial opacification/edema and patchy perihilar and right lower lung airspace opacities with small layering right pleural effusion. Findings are thought to be related to CHF. Superimposed pneumonia not entirely excluded. Clinical correlation and follow-up exam recommended.
[2017-07-26 09:47] LABS: ALANINE AMINOTRANSFERASE < 6 U/L (12-78); ALBUMIN 3.1 G/DL (3.4-5.0); ALBUMIN/GLOBULIN RATIO 0.8 (1.0-2.7); ALKALINE PHOSPHATASE 133 U/L (46-116); ASPARTATE AMINO TRANSFERASE 23 U/L (15-37); BILIRUBIN,TOTAL 0.6 MG/DL (0.2-1.0); CKMB 0.9 NG/ML (0.0-3.6); CREATINE KINASE 47 U/L (26-308)
[2017-07-26] MEDS ORDERED: Sodium Bicarbonate 50ml Carp IV ONE (10:00)
[2017-07-26] MEDS ORDERED: Calcium Gluconate 1gm/10ml vial IVP ONE (10:00)
[2017-07-26] MEDS ORDERED: Vancomycin 1.5gm/D5W 250ml 250 ML IVPB ONE (10:15)
[2017-07-26] MEDS ORDERED: Cefepime HCl 2 GM in D5W 55 ML IVPB ONE (10:15)
[2017-07-26] MEDS ORDERED: Cefepime 2gm ONE (10:22)
[2017-07-26] MEDS ORDERED: SENSIPAR30 MG ORAL (18:55)
[2017-07-26] MEDS ORDERED: TYLENOL EXTRA500 MG ORAL (18:58)
[2017-07-26] MEDS ORDERED: VOLTAREN100 G1 TP (18:59)
[2017-07-27 01:34] VITALS: BP 181/98
[2017-07-27 03:34] VITALS: BP 167/80
[2017-07-27 05:34] VITALS: BP 173/89
[2017-07-27 09:52] LABS: BASOPHILS % (AUTO) 0.7 % (0.0-2.0); EOSINOPHILS % (AUTO) 3.8 % (0.0-3.0); HEMOGLOBIN 10.2 G/DL (12.0-16.0); LYMPHOCYTES % (AUTO) 14.2 % (20.0-45.0); MEAN CORPUSCULAR VOLUME 96 FL (80-99); MONOCYTES % (AUTO) 10.8 % (1.0-10.0); NEUTROPHILS % (AUTO) 70.5 % (45.0-75.0); PLATELET COUNT 149 K/UL (150-450); RED BLOOD COUNT 3.43 M/UL (4.20-5.40); RED CELL DISTRIBUTION WIDTH 15.4 % (11.6-14.8); WHITE BLOOD COUNT 5.8 K/UL (4.8-10.8)
[2017-07-27 10:08] LABS: ALANINE AMINOTRANSFERASE < 6 U/L (12-78); ALBUMIN 3.1 G/DL (3.4-5.0); ALBUMIN/GLOBULIN RATIO 0.7 (1.0-2.7); ALKALINE PHOSPHATASE 123 U/L (46-116); ANION GAP 14 mmol/L (5-15); ASPARTATE AMINO TRANSFERASE 22 U/L (15-37); BILIRUBIN,TOTAL 0.7 MG/DL (0.2-1.0); BLOOD UREA NITROGEN 56 mg/dL (7-18); CARBON DIOXIDE 23 MMOL/L (21-32); CHLORIDE 99 MMOL/L (98-107); SODIUM 136 MMOL/L (136-145)
[2017-07-27 10:16] LABS: POTASSIUM 6.1 MMOL/L (3.5-5.1)
[2017-07-27] MEDS: Docusate 100mg cap ORAL SCH ×2 (10:30→18:00)
[2017-07-27 10:31] LABS: INR 3.1 (0.9-1.1)
--- NOTE | 2017-07-27 11:06 | History & Physical ---
History and Physical History & Physicial Dictated for Int Med-Dr Vizcarra no. [id number]. DACIA MARTÍNEZ Jul 27, 2017 11:06
[2017-07-27] MEDS: Nephrovite tab (Rena-Vite) ORAL SCH ×2 (11:12→11:14)
[2017-07-27] MEDS: Amiodarone 200mg tab ORAL SCH (11:14)
[2017-07-27] MEDS: NovoLOG Insulin Flexpen SUBQ SCH ×4 (12:30→21:13)
[2017-07-27] MEDS: Sensipar 30mg Tab ORAL SCH ×2 (12:39→21:11)
--- NOTE | 2017-07-27 13:30 | Consultation ---
Consult Note Assessment/Plan consult dictated # [id number] THOM CASTILLO Jul 27, 2017 13:30
--- NOTE | 2017-07-27 16:17 | Cardiology Report ---
APPROVED REPORT EKG Measurement Heart [id number] [place] 194P61 [id number] Normal sinus rhythm Anterior infarct, age undetermined Abnormal ECG
--- NOTE | 2017-07-27 16:46 | Cardiology Report ---
APPROVED REPORT EXAM: Two-dimensional and M-mode echocardiogram with Doppler and color Doppler. INDICATION Congestive Heart Failure M-Mode DIMENSIONS IVSd1.7 (0.7-1.1cm)Left Atrium (MM)4.6 (1.6-4.0cm) LVDd5.1 (3.5-5.6cm)Aortic Root2.7 (2.0-3.7cm) PWd1.7 (0.7-1.1cm)Aortic Cusp Exc.1.3 (1.5-2.0cm) IVSs2.1 cm LVDs3.6 (2.5-4.0cm) PWs1.8 cm Normal left ventricular chamber size, systolic function and wall motion. Left ventricular ejection fraction estimated to be 55-60%. Mild ventricular hypertrophy by 2-D. No evidence of pericardial effusion Mild bi-atrial enlargement. Aortic valve calcification with decreased cusp excursion c/w aortic stenosis. Moderately Thickened mitral valve leaflets with normal excursion. Mitral annulus and aortic root calcification. Normal Pulmonic valve structure. Normal tricuspid valve structure. IVC dilated at size 2.7 with physiologic collapse . A color flow and spectral Doppler study was performed and revealed: No aortic regurgitation. Peak aortic valve gradient of 19 mm Hg and a mean of 9 mmHg. Aortic valve area 2.5 cm2 calculated by continuity equation. Mild to moderate mitral regurgitation. Normal left ventricular function. Mild tricuspid regurgitation. Tricuspid systolic velocities suggests peak right ventricular systolic pressure of 54 mmHg consistent with moderate pulmonary hypertension. Mild Pulmonic regurgitation present.
--- NOTE | 2017-07-27 17:15 | History and Physical Report ---
DATE OF ADMISSION: 07/26/2017 CHIEF COMPLAINT: The patient is an 82-year-old female, presents with chief complaint of shortness of breath. HISTORY OF PRESENT ILLNESS: The patient has a history of end-stage renal disease, on hemodialysis. The patient states her last dialysis was on 07/23/2017. The patient missed dialysis yesterday, 07/26/2017. The patient states she missed dialysis because she was short of breath. The patient began to experience shortness of breath approximately a week ago. The patient is complaining of cough with yellowish phlegm. The patient denies fever or chills. The patient was recently admitted to [facility] for lumpectomy of the right breast. The patient presents with a chief complaint of shortness of breath to rule out pneumonia versus congestive heart failure. REVIEW OF SYSTEMS: CONSTITUTIONAL: The patient denies weight loss or weight gain. The patient denies fevers or chills. HEENT: The patient denies ear or throat pain. The patient denies headache. CARDIOVASCULAR: The patient denies palpitations or chest pain. CHEST: The patient complains of shortness of breath as above. The patient denies wheezes. ABDOMEN: The patient denies nausea, vomiting, diarrhea, or constipation. GENITOURINARY: The patient denies dysuria or increased frequency of urination. NEUROMUSCULAR: The patient denies seizures or generalized weakness. PAST MEDICAL HISTORY: Significant for: 1. Right breast cancer in approximately 2012, status post lumpectomy and radiation therapy. 2. End-stage renal disease, on hemodialysis every Tuesday, , and Tuesday. Last hemodialysis was 07/23/2017. 3. Diabetes type 2. 4. Hypertension. 5. History of colon polyps. PAST SURGICAL HISTORY: Significant for: 1. Right breast lumpectomy in 2012 as above. 2. Right nephrectomy in 2006 secondary to "tumor." 3. Laparoscopic cholecystectomy. 4. Thyroidectomy. 5. Left arm arteriovenous graft for dialysis. CURRENT MEDICATIONS: 1. Tylenol 500 mg p.o. q.6 h. p.r.n. 2. Amiodarone 200 mg p.o. daily. 3. Arimidex 1 mg p.o. daily. 4. Sensipar 120 mg p.o. daily. 5. Voltaren Gel p.r.n. 6. Colace 100 mg p.o. twice daily. 7. Labetalol of an unknown dose twice daily. 8. Levoxyl of an unknown dose daily. 9. Renvela 800 mg p.o. before meals. 10. Valsartan 40 mg p.o. twice daily. 11. Vitamin B complex daily. 12. Coumadin per pharmacy protocol. ALLERGIES: No known drug allergies. SOCIAL HISTORY: The patient is a . The patient lives with her adult sons. The patient denies tobacco or alcohol use. PHYSICAL EXAMINATION: VITAL SIGNS: Temperature 98.1, respirations 25, pulse 70, and blood pressure 180/90. GENERAL: The patient is a well-developed, well-nourished, female, in no apparent distress. HEENT: Eyes, pupils are equal and responsive to light and accommodation. Extraocular movements are intact. NECK: Supple without lymphadenopathy. CHEST: Decreased breath sounds at bilateral bases with crackles. There are wheezes bilaterally one-third of the way up. ABDOMEN: Soft, nontender, and nondistended. Positive bowel sounds. No evidence of hepatosplenomegaly. Currently, no rebound or guarding noted. CARDIOVASCULAR: Regular rate. S1, S2 normal without murmurs, rubs, or gallops. EXTREMITIES: Negative for clubbing, cyanosis, or edema. RECTAL: Refused. GENITAL: Refused. NEUROLOGIC: Cranial nerves II through XII are grossly intact without focal deficit. LABORATORY AND DIAGNOSTIC DATA: WBC is 5.7, hemoglobin 10.2, hematocrit 33.2, and platelets 141,000. Sodium 138, potassium 5.8, chloride 101, CO2 25, BUN 48, creatinine 10.3, glucose 84. Troponin 0.023. BNP elevated at 15,092. ProTime 10.0, INR 1.0, and PTT 27. EKG demonstrated sinus rhythm at approximately 70 beats per minute with no acute ST changes or Q-waves noted. Chest x-ray revealed cardiomegaly with interstitial opacification/edema consistent with congestive heart failure. ASSESSMENT: This is an 82-year-old female: 1. Shortness of breath. 2. Congestive heart failure. 3. End-stage renal disease. 4. History of right breast cancer. 5. Diabetes type 2. 6. Hypertension. TREATMENT: 1. Shortness of breath. This may be secondary to congestive heart failure versus pneumonia. 2. Congestive heart failure. Cardiology consultation is pending with Dr. Prashant Ramírez. A 2D echocardiogram is pending. We will follow recommendation of Cardiology. 3. End-stage renal disease. A Nephrology consultation is pending with Dr. Black. The patient missed dialysis on 07/26/2017. The patient is scheduled for dialysis today. We will follow recommendation of Nephrology. 4. History of right breast cancer. 5. Diabetes type 2. A NovoLog sliding scale has been instituted. 6. Hypertension. Continue labetalol as above. Abhinav Anderson M.D. DR: MANA JOB#: [id number] CC:
[2017-07-27] MEDS: Acetaminophen 500mg (ES) tab ORAL PRN (18:43)
--- NOTE | 2017-07-27 19:45 | Consultation ---
DATE OF CONSULTATION: 07/27/2017 NEPHROLOGY CONSULTATION CONSULTING PHYSICIAN: Billy Emmanuel M.D. REFERRING PHYSICIAN: Marquis Vizcarra M.D. REASON FOR CONSULTATION: End-stage renal disease requiring hemodialysis. HISTORY OF PRESENT ILLNESS: This is an 82-year-old female, who is known to me from multiple admissions in the past. 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 Lopez, who I am covering. The patient has a history of end-stage renal disease. The patient was admitted for shortness of breath. I am doing a Nephrology consultation. PAST MEDICAL HISTORY: Includes history of breast cancer status post right-sided lumpectomy, history of left AV fistula, atrial fibrillation on anticoagulation. MEDICATIONS: Reviewed and reconciled in the EMR. ALLERGIES: No known drug allergies. SOCIAL HISTORY: No history of smoking or alcohol abuse. REVIEW OF SYSTEMS: As above. PHYSICAL EXAMINATION: GENERAL: The patient is an elderly female, in no acute distress. VITAL SIGNS: Blood pressure 203/108, pulse 66, respiratory rate 18, and temperature 97.7. HEENT: [place] conjunctivae. Anicteric sclerae. NECK: Supple. LUNGS: Clear to auscultation. HEART: S1 and S2 without murmurs or rubs. ABDOMEN: Soft and nontender. EXTREMITIES: Bilateral pedal edema. LABORATORY FINDINGS: CBC shows a WBC of 5.8, hematocrit is 33, hemoglobin is 10.2, and platelets 149,000. Chemistry panel shows serum sodium 136, potassium 6.1, chloride 99, BUN 56, creatinine 8, blood sugar 65, calcium is 8. Albumin is 3.1. ASSESSMENT: This is an 82-year-old female with history of end-stage renal disease who was admitted with shortness of breath and hyperkalemia. PLAN: The patient will be dialyzed today with good amounts of ultrafiltration. Laboratories will be followed and adjustments will be made in the patient's regimen. Thank you very much for this consultation. Billy Emmanuel M.D. DR: ISAURA JOB#: [id number] CC:
[2017-07-27 20:00] VITALS: BP 145/94
[2017-07-28] VITALS: BP 98/56
[2017-07-28 04:00] VITALS: BP 133/64
[2017-07-28] MEDS: NovoLOG Insulin Flexpen SUBQ SCH ×4 (06:30→21:00)
[2017-07-28 07:34] LABS: INR 1.9 (0.9-1.1)
[2017-07-28 07:37] LABS: BASOPHILS % (AUTO) 0.8 % (0.0-2.0); EOSINOPHILS % (AUTO) 2.8 % (0.0-3.0); HEMATOCRIT 31.2 % (37.0-47.0); HEMOGLOBIN 9.6 G/DL (12.0-16.0); LYMPHOCYTES % (AUTO) 17.2 % (20.0-45.0); MEAN CORPUSCULAR VOLUME 97 FL (80-99); MONOCYTES % (AUTO) 11.6 % (1.0-10.0); NEUTROPHILS % (AUTO) 67.7 % (45.0-75.0); PLATELET COUNT 137 K/UL (150-450); RED CELL DISTRIBUTION WIDTH 15.5 % (11.6-14.8); WHITE BLOOD COUNT 4.9 K/UL (4.8-10.8)
[2017-07-28 08:00] VITALS: BP 111/79
[2017-07-28 08:13] LABS: ANION GAP 11 mmol/L (5-15); BLOOD UREA NITROGEN 35 mg/dL (7-18); CALCIUM 7.9 MG/DL (8.5-10.1); CARBON DIOXIDE 29 MMOL/L (21-32); CHLORIDE 99 MMOL/L (98-107); CREATININE 5.7 MG/DL (0.55-1.30); POTASSIUM 4.7 MMOL/L (3.5-5.1); SODIUM 139 MMOL/L (136-145)
[2017-07-28] MEDS: Docusate 100mg cap ORAL SCH ×2 (09:20→18:00)
[2017-07-28] MEDS: Amiodarone 200mg tab ORAL SCH (09:21)
[2017-07-28] MEDS: Sensipar 30mg Tab ORAL SCH ×2 (09:21→20:38)
[2017-07-28 12:00] VITALS: BP 148/69
[2017-07-28] MEDS: Nephrovite tab (Rena-Vite) ORAL SCH (13:49)
[2017-07-28 16:00] VITALS: BP 120/84
--- NOTE | 2017-07-28 16:17 | Internal Med Progress Note ---
Subjective Date of Service: Jul 28, 2017 Physician Name Dacia Martínez Attending Physician Marquis Vizcarra M.D. Current Medications Medications (Trade) Dose Ordered Sig/Donte Route PRN Reason Start Time Stop Time Status Last Admin Dose Admin Acetaminophen (Tylenol) 500 mg Q8H PRN ORAL Mild Pain/Temp > 100.5 07/27/17 09:45 08/26/17 09:44 07/27/17 18:43 Amiodarone HCl (Cordarone) 200 mg DAILY ORAL 07/27/17 10:30 08/26/17 10:29 07/28/17 09:21 Cinacalcet (Sensipar) 60 mg Q12HR ORAL 07/27/17 11:00 08/26/17 10:59 07/28/17 09:21 Dextrose (Dextrose 50%) STAT PRN IV Hypoglycemia 07/27/17 11:00 08/26/17 10:59 Docusate Sodium (Colace) 100 mg TWICE A DAY ORAL 07/27/17 10:30 08/26/17 10:29 07/28/17 09:20 Insulin Aspart (NovoLOG) BEFORE MEALS AND HS SUBQ 07/27/17 12:30 08/26/17 12:29 Irbesartan (Avapro) 75 mg Q12HR ORAL 07/27/17 10:30 08/26/17 10:29 07/27/17 11:14 Labetalol HCl (Normodyne) 100 mg Q12HR ORAL 07/27/17 21:00 08/26/17 20:59 07/27/17 21:07 Levothyroxine Sodium (Synthroid) 100 mcg DAILY@0630 ORAL 07/27/17 10:30 08/26/17 10:29 07/28/17 06:17 Sevelamer Carbonate (Renvela) 800 mg BEFORE MEALS ORAL 07/27/17 11:30 08/26/17 11:29 07/28/17 13:50 Vitamin B Complex/ Vit C/Folic Acid (Nephrovite) 1 tab DAILY ORAL 07/27/17 10:30 08/26/17 10:29 07/28/17 13:49 Warfarin Sodium (Coumadin per pharmacy) 1 ea DAILY PRN MISC Per rx protocol 07/27/17 09:45 08/26/17 09:44 Warfarin Sodium (Coumadin) 2.5 mg COUMADIN ONCE ORAL 07/28/17 17:00 07/28/17 17:01 Allergies: Coded Allergies: No Known Allergies (Verified , 08/04/16) ROS Limited/Unobtainable: No Constitutional: Reports: no symptoms HEENT: Reports: no symptoms Cardiovascular: Reports: no symptoms Respiratory: Reports: shortness of breath Gastrointestinal/Abdominal: Reports: no symptoms Genitourinary: Reports: no symptoms Neurologic/Psychiatric: Reports: no symptoms Subjective 82 YO F admitted with shortness of breath. Now CHF. Cover or Int Med-Dr Vizcarra Objective Last Vital Signs Date Time Temp Pulse Resp B/P (MAP) Pulse Ox O2 Delivery O2 Flow Rate FiO2 07/28/17 12:00 97.4 71 19 148/69 97 07/28/17 04:00 Nasal Cannula 2.0 General Appearance: WD/WN, alert, mild distress, obese EENT: PERRL/EOMI, normal ENT inspection Neck: non-tender, normal alignment, supple, normal inspection Cardiovascular: normal peripheral pulses, normal rate, regular rhythm, no gallop/murmur, no JVD Respiratory/Chest: chest wall non-tender, respiratory distress, decreased breath sounds, crackles/rales, rhonchi - bilaterally, expiratory wheezing Abdomen: normal bowel sounds, non tender, soft, no organomegaly, no mass Extremities: normal range of motion, non-tender Edema: trace edema 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, no motor/sensory deficits Skin: normal pigmentation, warm/dry Laboratory Tests Test 07/28/17 05:40 White Blood Count 4.9 K/UL (4.8-10.8) Red Blood Count 3.20 M/UL (4.20-5.40) L Hemoglobin 9.6 G/DL (12.0-16.0) L Hematocrit 31.2 % (37.0-47.0) L Mean Corpuscular Volume 97 FL (80-99) Mean Corpuscular Hemoglobin 30.1 PG (27.0-31.0) Mean Corpuscular Hemoglobin Concent 30.9 G/DL (32.0-36.0) L Red Cell Distribution Width 15.5 % (11.6-14.8) H Platelet Count 137 K/UL (150-450) L Mean Platelet Volume 7.0 FL (6.5-10.1) Neutrophils (%) (Auto) 67.7 % (45.0-75.0) Lymphocytes (%) (Auto) 17.2 % (20.0-45.0) L Monocytes (%) (Auto) 11.6 % (1.0-10.0) H Eosinophils (%) (Auto) 2.8 % (0.0-3.0) Basophils (%) (Auto) 0.8 % (0.0-2.0) Prothrombin Time 19.9 SEC (9.30-11.50) H Prothromb Time International Ratio 1.9 (0.9-1.1) H Sodium Level 139 MMOL/L (136-145) Potassium Level 4.7 MMOL/L (3.5-5.1) Chloride Level 99 MMOL/L (98-107) Carbon Dioxide Level 29 MMOL/L (21-32) Anion Gap 11 mmol/L (5-15) Blood Urea Nitrogen 35 mg/dL (7-18) H Creatinine 5.7 MG/DL (0.55-1.30) H Estimat Glomerular Filtration Rate mL/min (>60) Glucose Level 80 MG/DL (74-106) Calcium Level 7.9 MG/DL (8.5-10.1) L Troponin I 0.031 ng/mL (0.000-0.056) Pro-B-Type Natriuretic Peptide 05942 pg/mL (0-125) H Microbiology Date/Time Source Procedure Growth Status 07/26/17 10:41 Nasal Nares Influenza Types A,B Antigen (SETH) - Final Complete Intake and Output 07/27/17 07/28/17 19:00 07:00 Intake Total 772 ml 240 ml Output Total 4200 ml 20 ml Balance -3428 ml 220 ml Intake Oral 472 ml 240 ml IV Total 300 ml Output Drainage Total 20 ml Hemodialysis UF 4200 ml # Voids 2 # Bowel Movements 3 Assessment/Plan Problem List: (1) SOB (shortness of breath) Assessment & Plan: Due to CHF. Await cardiology consult. (2) CHF (congestive heart failure) Assessment & Plan: LVEF=55-60%. Await cardiology consult. (3) ESRD (end stage renal disease) Assessment & Plan: See nephrology note. (4) Breast cancer (5) DM (diabetes mellitus) Assessment & Plan: Continue novolog sliding scale. (6) HTN (hypertension) Assessment & Plan: Continue labetolol (7) Hypothyroidism Assessment & Plan: Continue levoxyl; check TSH Status: not improved DACIA MARTÍNEZ Jul 28, 2017 16:17
--- NOTE | 2017-07-28 16:21 | Cardiac Electrophysiology PN ---
Subjective Subjective Dictated [id number] Objective Last 24 Hour Vital Signs Date Time Temp Pulse Resp B/P (MAP) Pulse Ox O2 Delivery O2 Flow Rate FiO2 07/28/17 12:00 97.4 71 19 148/69 97 07/28/17 09:00 111/79 07/28/17 09:00 73 111/79 07/28/17 08:00 73 07/28/17 08:00 97.7 73 19 111/79 93 07/28/17 04:00 66 07/28/17 04:00 Nasal Cannula 2.0 07/28/17 04:00 97.9 68 20 133/64 98 07/28/17 00:00 Nasal Cannula 2.0 07/28/17 00:00 97.9 71 20 98/56 98 07/28/17 00:00 67 07/27/17 21:07 98 145/94 07/27/17 20:00 97.9 98 20 145/94 96 07/27/17 20:00 Nasal Cannula 2.0 07/27/17 20:00 69 07/27/17 16:47 Nasal Cannula 2.0 07/27/17 16:44 Nasal Cannula Intake and Output 07/27/17 07/28/17 19:00 07:00 Intake Total 772 ml 240 ml Output Total 4200 ml 20 ml Balance -3428 ml 220 ml Intake Oral 472 ml 240 ml IV Total 300 ml Output Drainage Total 20 ml Hemodialysis UF 4200 ml # Voids 2 # Bowel Movements 3 Laboratory Tests Test 07/28/17 05:40 White Blood Count 4.9 K/UL (4.8-10.8) Red Blood Count 3.20 M/UL (4.20-5.40) L Hemoglobin 9.6 G/DL (12.0-16.0) L Hematocrit 31.2 % (37.0-47.0) L Mean Corpuscular Volume 97 FL (80-99) Mean Corpuscular Hemoglobin 30.1 PG (27.0-31.0) Mean Corpuscular Hemoglobin Concent 30.9 G/DL (32.0-36.0) L Red Cell Distribution Width 15.5 % (11.6-14.8) H Platelet Count 137 K/UL (150-450) L Mean Platelet Volume 7.0 FL (6.5-10.1) Neutrophils (%) (Auto) 67.7 % (45.0-75.0) Lymphocytes (%) (Auto) 17.2 % (20.0-45.0) L Monocytes (%) (Auto) 11.6 % (1.0-10.0) H Eosinophils (%) (Auto) 2.8 % (0.0-3.0) Basophils (%) (Auto) 0.8 % (0.0-2.0) Prothrombin Time 19.9 SEC (9.30-11.50) H Prothromb Time International Ratio 1.9 (0.9-1.1) H Sodium Level 139 MMOL/L (136-145) Potassium Level 4.7 MMOL/L (3.5-5.1) Chloride Level 99 MMOL/L (98-107) Carbon Dioxide Level 29 MMOL/L (21-32) Anion Gap 11 mmol/L (5-15) Blood Urea Nitrogen 35 mg/dL (7-18) H Creatinine 5.7 MG/DL (0.55-1.30) H Estimat Glomerular Filtration Rate mL/min (>60) Glucose Level 80 MG/DL (74-106) Calcium Level 7.9 MG/DL (8.5-10.1) L Troponin I 0.031 ng/mL (0.000-0.056) Pro-B-Type Natriuretic Peptide 16899 pg/mL (0-125) H Microbiology Date/Time Source Procedure Growth Status 07/26/17 10:41 Nasal Nares Influenza Types A,B Antigen (SETH) - Final Complete ZEKE HAHN Jul 28, 2017 16:21
[2017-07-28] MEDS ORDERED: Warfarin Sodium 2.5mg ORAL ONE (17:00)
[2017-07-28 20:00] VITALS: BP 148/51
--- NOTE | 2017-07-28 21:45 | Consultation ---
DATE OF CONSULTATION: 07/28/2017 CARDIOLOGY CONSULTATION CONSULTING PHYSICIAN: Prashant Ramírez M.D. REFERRING PHYSICIAN: Nash Galloway M.D. REASON FOR CONSULTATION: Congestive heart failure with shortness of breath. HISTORY OF PRESENT ILLNESS: The patient is a very pleasant 82-year-old lady with history of hypertension and end-stage renal disease on hemodialysis, last dialysis being on 07/23/2017. The patient missed dialysis on 07/26/2017 and came to the emergency room with increasing shortness of breath as well as increasing lower extremity edema. The patient was also recently admitted to [facility] for right breast lumpectomy. PAST MEDICAL HISTORY: 1. Hypertension. 2. Diabetes. 3. History of breast cancer, status post lumpectomy and radiation. 4. End-stage renal disease, on hemodialysis Tuesday, , and Tuesday. 5. History of colon polyps. PAST SURGICAL HISTORY: 1. Right nephrectomy in 2006 secondary to tumor. 2. Right breast lumpectomy. 3. Cholecystectomy. 4. Thyroidectomy. 5. AV graft in the left arm for dialysis. MEDICATIONS: Amiodarone 200 mg daily, labetalol, valsartan, Coumadin, as well as Sensipar, Arimidex, and Levoxyl. ALLERGIES: She has no known drug allergies. SOCIAL HISTORY: She is a . Lives with her son. Does not smoke or drink alcohol. REVIEW OF SYSTEMS: Review of systems was thoroughly performed and was negative other than what was mentioned in the history of present illness. PHYSICAL EXAMINATION: VITAL SIGNS: Show blood pressure of 148/69, pulse 71, respirations 19, and temperature 97.4 degrees. HEAD AND NECK: Showed no JVD or carotid bruits. LUNGS: Have coarse rhonchi. CARDIOVASCULAR: Regular S1 and S2. No gallop. ABDOMEN: Soft. EXTREMITIES: A 2+ pitting edema. LABORATORY AND DIAGNOSTIC DATA: Labs show white count of 4.9, hemoglobin 9.6, hematocrit of 31.2, and platelet count of 137,000. Sodium 136; potassium was 6.1, went down to 4.7; BUN of 35; creatinine 5.7, and glucose of 80. Troponin negative x2. BNP 21,000. ASSESSMENT AND PLAN: 1. Congestive heart failure due to volume overload as the patient not received dialysis. She underwent an echocardiogram that showed ejection fraction of 55% to 60%. Continue hemodialysis. 2. Paroxysmal atrial fibrillation. Continue amiodarone 200 mg daily and Coumadin as well as labetalol 100 mg b.i.d. 3. Hypertension, on Avapro 75 mg b.i.d. and labetalol 100 mg b.i.d. 4. End-stage renal disease, on hemodialysis. 5. Hypothyroidism, on Synthroid. Thank you very much, Dr. Galloway, for allowing me to participate in the care of this patient. Please do not hesitate to contact me for any questions regarding my evaluation. Prashant Ramírez M.D. DR: Corine JOB#: [id number] CC:
[2017-07-29] VITALS: BP 136/50
[2017-07-29 04:00] VITALS: BP 129/61
[2017-07-29] MEDS: NovoLOG Insulin Flexpen SUBQ SCH ×4 (06:30→20:41)
[2017-07-29 07:12] LABS: INR 1.4 (0.9-1.1)
[2017-07-29 07:36] LABS: BASOPHILS % (AUTO) 1.1 % (0.0-2.0); EOSINOPHILS % (AUTO) 2.4 % (0.0-3.0); HEMATOCRIT 30.9 % (37.0-47.0); HEMOGLOBIN 9.9 G/DL (12.0-16.0); MEAN CORPUSCULAR VOLUME 96 FL (80-99); MONOCYTES % (AUTO) 14.4 % (1.0-10.0); NEUTROPHILS % (AUTO) 63.2 % (45.0-75.0); PLATELET COUNT 167 K/UL (150-450); RED BLOOD COUNT 3.21 M/UL (4.20-5.40); RED CELL DISTRIBUTION WIDTH 15.1 % (11.6-14.8); WHITE BLOOD COUNT 4.7 K/UL (4.8-10.8)
[2017-07-29 07:37] LABS: ANION GAP 11 mmol/L (5-15); BLOOD UREA NITROGEN 41 mg/dL (7-18); CALCIUM 7.6 MG/DL (8.5-10.1); CARBON DIOXIDE 29 MMOL/L (21-32); CHLORIDE 98 MMOL/L (98-107); CREATININE 6.9 MG/DL (0.55-1.30); SODIUM 138 MMOL/L (136-145)
[2017-07-29 08:00] VITALS: BP 134/96
[2017-07-29] MEDS: Sensipar 30mg Tab ORAL SCH ×2 (10:41→20:40)
[2017-07-29] MEDS: Nephrovite tab (Rena-Vite) ORAL SCH (10:43)
[2017-07-29] MEDS: Amiodarone 200mg tab ORAL SCH (10:43)
[2017-07-29] MEDS: Docusate 100mg cap ORAL SCH ×2 (10:44→18:28)
--- NOTE | 2017-07-29 10:47 | Nephrology Progress Note ---
Assessment/Plan Problem List: (1) ESRD (end stage renal disease) (2) HTN (hypertension) (3) CHF (congestive heart failure) (4) DM (diabetes mellitus) Plan HD on 07/[address] Lopez Subjective Subjective pt was seen on 07/28 note was missing Objective Objective Last 24 Hour Vital Signs Date Time Temp Pulse Resp B/P (MAP) Pulse Ox O2 Delivery O2 Flow Rate FiO2 07/29/17 08:00 98.0 78 18 134/96 95 Nasal Cannula 2.0 07/29/17 04:00 79 07/29/17 04:00 98.2 71 18 129/61 97 07/29/17 04:00 Nasal Cannula 2.0 07/29/17 00:00 65 07/29/17 00:00 97.9 67 20 136/50 97 07/29/17 00:00 Nasal Cannula 2.0 07/28/17 20:38 148/51 07/28/17 20:38 70 148/51 07/28/17 20:00 Nasal Cannula 2.0 07/28/17 20:00 97.7 70 18 148/51 98 07/28/17 20:00 69 07/28/17 16:00 74 07/28/17 16:00 97.7 74 20 120/84 96 07/28/17 12:00 64 07/28/17 12:00 97.4 71 19 148/69 97 Intake and Output 07/28/17 07/29/17 19:00 07:00 # Voids 2 # Bowel Movements 1 2 Laboratory Tests 07/29/17 05:05: White Blood Count 4.7L, Red Blood Count 3.21L, Hemoglobin 9.9L, Hematocrit 30.9L , Mean Corpuscular Volume 96, Mean Corpuscular Hemoglobin 31.0, Mean Corpuscular Hemoglobin Concent 32.1, Red Cell Distribution Width 15.1H, Platelet Count 167, Mean Platelet Volume 8.5, Neutrophils (%) (Auto) 63.2, Lymphocytes (%) (Auto) 19.0L, Monocytes (%) (Auto) 14.4H, Eosinophils (%) (Auto ) 2.4, Basophils (%) (Auto) 1.1, Prothrombin Time 14.7H, Prothromb Time International Ratio 1.4H, Sodium Level 138, Potassium Level 5.0, Chloride Level 98, Carbon Dioxide Level 29, Anion Gap 11, Blood Urea Nitrogen 41H, Creatinine 6.9H, Estimat Glomerular Filtration Rate , Glucose Level 92, Calcium Level 7.6L , Pro-B-Type Natriuretic Peptide 34935T, Thyroid Stimulating Hormone (TSH) 12.520H Height (Feet): 5 Height (Inches): 8.00 Weight (Pounds): 199 Cardiovascular: normal rate Respiratory/Chest: lungs clear Extremities: severe edema THOM CASTILLO Jul 29, 2017 10:47
--- NOTE | 2017-07-29 11:51 | Nephrology Progress Note ---
Assessment/Plan Problem List: (1) ESRD (end stage renal disease) (2) HTN (hypertension) (3) CHF (congestive heart failure) (4) DM (diabetes mellitus) Plan HD today Dc per primary Subjective Subjective feels ok Objective Objective Last 24 Hour Vital Signs Date Time Temp Pulse Resp B/P (MAP) Pulse Ox O2 Delivery O2 Flow Rate FiO2 07/29/17 10:43 78 134/96 07/29/17 08:00 98.0 78 18 134/96 95 Nasal Cannula 2.0 07/29/17 04:00 79 07/29/17 04:00 98.2 71 18 129/61 97 07/29/17 04:00 Nasal Cannula 2.0 07/29/17 00:00 65 07/29/17 00:00 97.9 67 20 136/50 97 07/29/17 00:00 Nasal Cannula 2.0 07/28/17 20:38 148/51 07/28/17 20:38 70 148/51 07/28/17 20:00 Nasal Cannula 2.0 07/28/17 20:00 97.7 70 18 148/51 98 07/28/17 20:00 69 07/28/17 16:00 74 07/28/17 16:00 97.7 74 20 120/84 96 07/28/17 12:00 64 07/28/17 12:00 97.4 71 19 148/69 97 Intake and Output 07/28/17 07/29/17 19:00 07:00 # Voids 2 # Bowel Movements 1 2 Laboratory Tests 07/29/17 05:05: White Blood Count 4.7L, Red Blood Count 3.21L, Hemoglobin 9.9L, Hematocrit 30.9L , Mean Corpuscular Volume 96, Mean Corpuscular Hemoglobin 31.0, Mean Corpuscular Hemoglobin Concent 32.1, Red Cell Distribution Width 15.1H, Platelet Count 167, Mean Platelet Volume 8.5, Neutrophils (%) (Auto) 63.2, Lymphocytes (%) (Auto) 19.0L, Monocytes (%) (Auto) 14.4H, Eosinophils (%) (Auto ) 2.4, Basophils (%) (Auto) 1.1, Prothrombin Time 14.7H, Prothromb Time International Ratio 1.4H, Sodium Level 138, Potassium Level 5.0, Chloride Level 98, Carbon Dioxide Level 29, Anion Gap 11, Blood Urea Nitrogen 41H, Creatinine 6.9H, Estimat Glomerular Filtration Rate , Glucose Level 92, Calcium Level 7.6L , Pro-B-Type Natriuretic Peptide 06547O, Thyroid Stimulating Hormone (TSH) 12.520H Height (Feet): 5 Height (Inches): 8.00 Weight (Pounds): 199 Cardiovascular: normal rate Respiratory/Chest: lungs clear Extremities: severe edema THOM CASTILLO Jul 29, 2017 11:51
--- NOTE | 2017-07-29 11:54 | Diagnostic Imaging Report ---
Indication: Shortness of breath Technique: One view of the chest Comparison: 07/26/2017 Findings: The heart is enlarged. The aorta is tortuous ectatic and calcified. There is diffuse bilateral interstitial and airspace edema again demonstrated. Right-sided pleural effusion persists. Surgical clips are seen in the neck. There are degenerative changes of the both shoulders again noted. Vascular stent is seen in the left axilla Impression: Unchanged, over 3 days, findings as above.
[2017-07-29 12:00] VITALS: BP 137/47
[2017-07-29] MEDS ORDERED: Heparin 5000 units/ml inj IV ONE (15:45)
[2017-07-29 16:00] VITALS: BP 172/73
[2017-07-29] MEDS ORDERED: Warfarin Sodium 7.5mg ORAL ONE (17:00)
--- NOTE | 2017-07-29 19:08 | Cardiac Electrophysiology PN ---
Assessment/Plan Assessment/Plan 1. Congestive heart failure due to volume overload as the patient not received dialysis. She underwent an echocardiogram that showed ejection fraction of 55% to 60%. Continue hemodialysis. 2. Paroxysmal atrial fibrillation.In SR on amiodarone 200 mg daily, Coumadin and labetalol 100 mg b.i.d. 3. Hypertension, refused Avapro 75 mg b.i.d.Continue labetalol 100 mg b.i.d. 4. End-stage renal disease, on hemodialysis. 5. Hypothyroidism, on Synthroid. KASI RN Subjective Subjective Feeling better. No chest pain. Just had dialysis 4800 cc out Objective Last 24 Hour Vital Signs Date Time Temp Pulse Resp B/P (MAP) Pulse Ox O2 Delivery O2 Flow Rate FiO2 07/29/17 18:40 Room Air 2.0 07/29/17 16:00 97.0 83 18 172/73 95 Room Air 07/29/17 16:00 87 07/29/17 14:50 Nasal Cannula 2.0 07/29/17 12:00 68 07/29/17 12:00 96.8 67 18 137/47 95 Nasal Cannula 2.0 07/29/17 10:43 78 134/96 07/29/17 08:00 98.0 78 18 134/96 95 Nasal Cannula 2.0 07/29/17 08:00 78 07/29/17 04:00 79 07/29/17 04:00 98.2 71 18 129/61 97 07/29/17 04:00 Nasal Cannula 2.0 07/29/17 00:00 65 07/29/17 00:00 97.9 67 20 136/50 97 07/29/17 00:00 Nasal Cannula 2.0 07/28/17 20:38 148/51 07/28/17 20:38 70 148/51 07/28/17 20:00 Nasal Cannula 2.0 07/28/17 20:00 97.7 70 18 148/51 98 07/28/17 20:00 69 Intake and Output 07/28/17 07/29/17 19:00 07:00 # Voids 2 # Bowel Movements 1 2 Laboratory Tests Test 07/29/17 05:05 White Blood Count 4.7 K/UL (4.8-10.8) L Red Blood Count 3.21 M/UL (4.20-5.40) L Hemoglobin 9.9 G/DL (12.0-16.0) L Hematocrit 30.9 % (37.0-47.0) L Mean Corpuscular Volume 96 FL (80-99) Mean Corpuscular Hemoglobin 31.0 PG (27.0-31.0) Mean Corpuscular Hemoglobin Concent 32.1 G/DL (32.0-36.0) Red Cell Distribution Width 15.1 % (11.6-14.8) H Platelet Count 167 K/UL (150-450) Mean Platelet Volume 8.5 FL (6.5-10.1) Neutrophils (%) (Auto) 63.2 % (45.0-75.0) Lymphocytes (%) (Auto) 19.0 % (20.0-45.0) L Monocytes (%) (Auto) 14.4 % (1.0-10.0) H Eosinophils (%) (Auto) 2.4 % (0.0-3.0) Basophils (%) (Auto) 1.1 % (0.0-2.0) Prothrombin Time 14.7 SEC (9.30-11.50) H Prothromb Time International Ratio 1.4 (0.9-1.1) H Sodium Level 138 MMOL/L (136-145) Potassium Level 5.0 MMOL/L (3.5-5.1) Chloride Level 98 MMOL/L (98-107) Carbon Dioxide Level 29 MMOL/L (21-32) Anion Gap 11 mmol/L (5-15) Blood Urea Nitrogen 41 mg/dL (7-18) H Creatinine 6.9 MG/DL (0.55-1.30) H Estimat Glomerular Filtration Rate mL/min (>60) Glucose Level 92 MG/DL (74-106) Calcium Level 7.6 MG/DL (8.5-10.1) L Pro-B-Type Natriuretic Peptide 56547 pg/mL (0-125) H Thyroid Stimulating Hormone (TSH) 12.520 uiU/mL (0.358-3.740) Microbiology Date/Time Source Procedure Growth Status 07/27/17 05:00 Nasal Nares MRSA Culture - Final NO METHICILLIN RESISTANT STAPH AUREUS... Complete 07/27/17 05:00 Rectum VRE Culture - Final Enterococcus Faecalis - Vre Complete Objective HEAD AND NECK: Showed no JVD or carotid bruits. LUNGS: Have coarse rhonchi. CARDIOVASCULAR: Regular S1 and S2. No gallop. ABDOMEN: Soft. EXTREMITIES: A 2+ pitting edema. ZEKE HAHN Jul 29, 2017 19:08
[2017-07-29 20:14] VITALS: BP 152/60
[2017-07-29] MEDS: Acetaminophen 500mg (ES) tab ORAL PRN (20:40)
[2017-07-30] VITALS (7 sets, daily range): BP systolic 101–149; BP diastolic 68–111
[2017-07-30] MEDS: NovoLOG Insulin Flexpen SUBQ SCH ×4 (06:30→21:00)
[2017-07-30 07:58] LABS: INR 1.3 (0.9-1.1)
[2017-07-30] MEDS: Docusate 100mg cap ORAL SCH ×2 (08:31→18:03)
[2017-07-30] MEDS: Amiodarone 200mg tab ORAL SCH (08:31)
[2017-07-30] MEDS: Nephrovite tab (Rena-Vite) ORAL SCH (08:31)
[2017-07-30] MEDS: Sensipar 30mg Tab ORAL SCH ×2 (08:31→21:00)
--- NOTE | 2017-07-30 11:55 | Nephrology Progress Note ---
Assessment/Plan Problem List: (1) ESRD (end stage renal disease) (2) HTN (hypertension) (3) CHF (congestive heart failure) (4) DM (diabetes mellitus) Plan HD tomorrow if not discharged discussed with RN Subjective Subjective feels ok Objective Objective Last 24 Hour Vital Signs Date Time Temp Pulse Resp B/P (MAP) Pulse Ox O2 Delivery O2 Flow Rate FiO2 07/30/17 08:31 122/99 07/30/17 08:31 87 122/99 07/30/17 08:00 97.1 87 18 125/99 97 Nasal Cannula 07/30/17 04:06 97.9 68 20 136/78 96 Nasal Cannula 07/30/17 04:00 68 07/30/17 00:10 98.6 64 18 149/84 96 Nasal Cannula 07/30/17 00:00 69 07/29/17 21:02 152/98 07/29/17 20:38 77 152/98 07/29/17 20:14 96.4 78 20 152/60 97 Room Air 07/29/17 20:00 78 07/29/17 18:40 Room Air 2.0 07/29/17 16:00 97.0 83 18 172/73 95 Room Air 07/29/17 16:00 87 07/29/17 14:50 Nasal Cannula 2.0 07/29/17 12:00 68 07/29/17 12:00 96.8 67 18 137/47 95 Nasal Cannula 2.0 Intake and Output 07/29/17 07/30/17 19:00 07:00 Intake Total 340 ml Output Total 3805 ml 220 ml Balance -3465 ml -220 ml Intake Oral 340 ml Output Urine Total 200 ml Drainage Total 20 ml Hemodialysis UF 3805 ml # Voids 1 # Bowel Movements 1 1 Laboratory Tests 07/30/17 05:50: Prothrombin Time 13.4H, Prothromb Time International Ratio 1.3H Height (Feet): 5 Height (Inches): 8.00 Weight (Pounds): 195 Cardiovascular: normal rate Respiratory/Chest: lungs clear Extremities: severe edema THOM CASTILLO Jul 30, 2017 11:55
--- NOTE | 2017-07-30 14:58 | Cardiac Electrophysiology PN ---
Assessment/Plan Assessment/Plan 1. Congestive heart failure due to volume overload as the patient not received dialysis. Echocardiogram that showed ejection fraction of 55% to 60%. Continue hemodialysis. 2. Paroxysmal atrial fibrillation.In SR on amiodarone 200 mg daily, Coumadin and labetalol 100 mg b.i.d. 3. Hypertension, Continue labetalol 100 mg b.i.d. and HD. DC Avapro as she is refusing it anyway. 4. End-stage renal disease, on hemodialysis. 5. Hypothyroidism, on Synthroid. KASI RN Subjective Subjective Comfortable in NAD with no chest pain. Had dialysis 4800 cc out yesterday Objective Last 24 Hour Vital Signs Date Time Temp Pulse Resp B/P (MAP) Pulse Ox O2 Delivery O2 Flow Rate FiO2 07/30/17 08:31 122/99 07/30/17 08:31 87 122/99 07/30/17 08:00 97.1 87 18 125/99 97 Nasal Cannula 07/30/17 04:06 97.9 68 20 136/78 96 Nasal Cannula 07/30/17 04:00 68 07/30/17 00:10 98.6 64 18 149/84 96 Nasal Cannula 07/30/17 00:00 69 07/29/17 21:02 152/98 07/29/17 20:38 77 152/98 07/29/17 20:14 96.4 78 20 152/60 97 Room Air 07/29/17 20:00 78 07/29/17 18:40 Room Air 2.0 07/29/17 16:00 97.0 83 18 172/73 95 Room Air 07/29/17 16:00 87 Intake and Output 07/29/17 07/30/17 19:00 07:00 Intake Total 340 ml Output Total 3805 ml 220 ml Balance -3465 ml -220 ml Intake Oral 340 ml Output Urine Total 200 ml Drainage Total 20 ml Hemodialysis UF 3805 ml # Voids 1 # Bowel Movements 1 1 Laboratory Tests Test 07/30/17 05:50 Prothrombin Time 13.4 SEC (9.30-11.50) H Prothromb Time International Ratio 1.3 (0.9-1.1) H Objective HEAD AND NECK: No JVD or carotid bruits. LUNGS: Have coarse rhonchi. CARDIOVASCULAR: Regular S1 and S2. No gallop. ABDOMEN: Soft. EXTREMITIES: A 2+ pitting edema. ZEKE HAHN Jul 30, 2017 14:58
[2017-07-30] MEDS ORDERED: Warfarin Sodium 7.5mg ORAL SCH (17:00)
[2017-07-31] VITALS: BP 133/64
[2017-07-31] MEDS ORDERED: Acetaminophen 500mg (ES) tab ORAL PRN (01:45)
[2017-07-31 04:00] VITALS: BP 124/79
[2017-07-31] MEDS: NovoLOG Insulin Flexpen SUBQ SCH ×3 (06:18→16:30)
[2017-07-31 08:00] VITALS: BP 128/79
[2017-07-31] MEDS ORDERED: Amiodarone 200mg tab ORAL SCH (09:00)
[2017-07-31] MEDS ORDERED: Nephrovite tab (Rena-Vite) ORAL SCH (09:00)
[2017-07-31] MEDS: Docusate 100mg cap ORAL SCH ×2 (09:11→17:54)
[2017-07-31] MEDS: Sensipar 30mg Tab ORAL SCH (09:12)
--- NOTE | 2017-07-31 13:12 | Nephrology Progress Note ---
Assessment/Plan Problem List: (1) ESRD (end stage renal disease) (2) HTN (hypertension) (3) CHF (congestive heart failure) (4) DM (diabetes mellitus) Plan HD as tolerated discussed with RN OK to Dc Discussed with Dr Anderson Subjective Subjective seen during HD Objective Objective Last 24 Hour Vital Signs Date Time Temp Pulse Resp B/P (MAP) Pulse Ox O2 Delivery O2 Flow Rate FiO2 07/31/17 09:12 79 128/79 07/31/17 08:00 98.0 79 20 128/79 95 07/31/17 04:00 97.9 82 20 124/79 97 07/31/17 00:00 Nasal Cannula 2.0 07/31/17 00:00 98.2 78 20 133/64 96 07/30/17 21:00 80 101/68 07/30/17 20:00 98.2 80 20 101/68 97 Nasal Cannula 2.0 07/30/17 16:00 98.0 75 18 135/99 96 07/30/17 14:00 97.4 83 19 137/111 95 Nasal Cannula Intake and Output 07/30/17 07/31/17 19:00 07:00 Intake Total 472 ml 360 ml Output Total 8 ml 5 ml Balance 464 ml 355 ml Intake Oral 472 ml 360 ml Drainage Total 8 ml 5 ml # Voids 2 1 # Bowel Movements 2 Height (Feet): 5 Height (Inches): 8.00 Weight (Pounds): 196 Cardiovascular: normal rate Respiratory/Chest: lungs clear Extremities: moderate edema THOM CASTILLO Jul 31, 2017 13:12
[2017-07-31] MEDS ORDERED: Heparin Sod 1000 units/ml 10ml INJ ONE (13:30)
--- NOTE | 2017-07-31 14:04 | Cardiac Electrophysiology PN ---
Assessment/Plan Assessment/Plan 1. Congestive heart failure due to volume overload and diastolic dysfunction. Echocardiogram EF 55% to 60%. Continue hemodialysis. 2. Paroxysmal atrial fibrillation.In SR on amiodarone 200 mg daily, Coumadin and labetalol 100 mg b.i.d. 3. Hypertension, Continue labetalol 100 mg b.i.d. and HD. 4. End-stage renal disease, on hemodialysis. 5. Hypothyroidism, on Synthroid. DW RN Subjective Subjective Comfortable in NAD with no chest pain. Getting HD today. Objective Last 24 Hour Vital Signs Date Time Temp Pulse Resp B/P (MAP) Pulse Ox O2 Delivery O2 Flow Rate FiO2 07/31/17 11:30 Nasal Cannula 2.0 07/31/17 09:12 79 128/79 07/31/17 08:00 98.0 79 20 128/79 95 07/31/17 04:00 97.9 82 20 124/79 97 07/31/17 00:00 Nasal Cannula 2.0 07/31/17 00:00 98.2 78 20 133/64 96 07/30/17 21:00 80 101/68 07/30/17 20:00 98.2 80 20 101/68 97 Nasal Cannula 2.0 07/30/17 16:00 98.0 75 18 135/99 96 Intake and Output 07/30/17 07/31/17 19:00 07:00 Intake Total 472 ml 360 ml Output Total 8 ml 5 ml Balance 464 ml 355 ml Intake Oral 472 ml 360 ml Drainage Total 8 ml 5 ml # Voids 2 1 # Bowel Movements 2 Objective HEAD AND NECK: No JVD or carotid bruits. LUNGS: Have coarse rhonchi. Right breast drain present CARDIOVASCULAR: Regular S1 and S2. No gallop. ABDOMEN: Soft. EXTREMITIES: A 2+ pitting edema. ZEKE HAHN Jul 31, 2017 14:04
--- NOTE | 2017-07-31 14:32 | Internal Med Progress Note ---
Subjective Date of Service: Jul 31, 2017 Physician Name Dacia Martínez Attending Physician Marquis Vizcarra M.D. Current Medications Medications (Trade) Dose Ordered Sig/Donte Route PRN Reason Start Time Stop Time Status Last Admin Dose Admin Acetaminophen (Tylenol) 500 mg Q8H PRN ORAL Mild Pain/Temp > 100.5 07/31/17 01:45 08/26/17 09:44 Amiodarone HCl (Cordarone) 200 mg DAILY ORAL 07/31/17 09:00 08/26/17 10:29 07/31/17 09:11 Cinacalcet (Sensipar) 60 mg Q12HR ORAL 07/30/17 21:00 08/26/17 10:59 07/31/17 09:12 Dextrose (Dextrose 50%) STAT PRN IV Hypoglycemia 07/31/17 11:00 08/26/17 10:59 Docusate Sodium (Colace) 100 mg TWICE A DAY ORAL 07/30/17 18:00 08/26/17 10:29 07/31/17 09:11 Insulin Aspart (NovoLOG) BEFORE MEALS AND HS SUBQ 07/30/17 21:00 08/26/17 12:29 Labetalol HCl (Normodyne) 100 mg Q12HR ORAL 07/30/17 21:00 08/26/17 20:59 07/31/17 09:12 Levothyroxine Sodium (Synthroid) 100 mcg DAILY@0630 ORAL 07/31/17 06:30 08/26/17 10:29 07/31/17 05:49 Sevelamer Carbonate (Renvela) 800 mg BEFORE MEALS ORAL 07/31/17 06:30 08/26/17 11:29 07/31/17 11:51 Sodium Chloride 1,000 ml @ 500 mls/hr Q2H PRN IVLG sbp<90 during hd 07/31/17 11:55 08/30/17 11:54 Vitamin B Complex/ Vit C/Folic Acid (Nephrovite) 1 tab DAILY ORAL 07/31/17 09:00 08/28/17 10:44 07/31/17 09:12 Warfarin Sodium (Coumadin per pharmacy) 1 ea DAILY PRN MISC Per rx protocol 07/31/17 09:00 08/26/17 09:44 Allergies: Coded Allergies: No Known Allergies (Verified , 08/04/16) ROS Limited/Unobtainable: No Constitutional: Reports: no symptoms HEENT: Reports: no symptoms Cardiovascular: Reports: no symptoms Respiratory: Reports: no symptoms Gastrointestinal/Abdominal: Reports: no symptoms Genitourinary: Reports: no symptoms Neurologic/Psychiatric: Reports: no symptoms Subjective 82 YO F admitted with shortness of breath. Now CHF. Hemodialysis today. Cover or Int Chirag-Dr Vizcarra Objective Last Vital Signs Date Time Temp Pulse Resp B/P (MAP) Pulse Ox O2 Delivery O2 Flow Rate FiO2 07/31/17 11:30 Nasal Cannula 2.0 07/31/17 09:12 79 128/79 07/31/17 08:00 98.0 20 95 Intake and Output 07/30/17 07/31/17 19:00 07:00 Intake Total 472 ml 360 ml Output Total 8 ml 5 ml Balance 464 ml 355 ml Intake Oral 472 ml 360 ml Drainage Total 8 ml 5 ml # Voids 2 1 # Bowel Movements 2 Objective General Appearance: WD/WN, alert, mild distress, obese EENT: PERRL/EOMI, normal ENT inspection Neck: non-tender, normal alignment, supple, normal inspection Cardiovascular: normal peripheral pulses, normal rate, regular rhythm, no gallop/murmur, no JVD Respiratory/Chest: chest wall non-tender, respiratory distress, decreased breath sounds, crackles/rales, rhonchi - bilaterally, expiratory wheezing Abdomen: normal bowel sounds, non tender, soft, no organomegaly, no mass Extremities: normal range of motion, non-tender Edema: trace edema 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 Await cardiology consult. (2) CHF (congestive heart failure) Assessment & Plan: LVEF=55-60%. Await cardiology consult. (3) ESRD (end stage renal disease) Assessment & Plan: Hemodialysis today 07/31/17. See nephrology note. (4) Breast cancer (5) DM (diabetes mellitus) Assessment & Plan: Continue novolog sliding scale. (6) HTN (hypertension) Assessment & Plan: Continue labetolol (7) Hypothyroidism Assessment & Plan: Continue levoxyl; check TSH Status: stable Assessment/Plan Discharge planning: D/C home with medical transport DACIA MARTÍNEZ Jul 31, 2017 14:32
[2017-07-31 15:46] VITALS: BP 131/96
[2017-07-31 16:28] LABS: INR 1.3 (0.9-1.1)
[2017-07-31 16:31] LABS: ANION GAP 11 mmol/L (5-15); BLOOD UREA NITROGEN 44 mg/dL (7-18); CALCIUM 8.2 MG/DL (8.5-10.1); CARBON DIOXIDE 30 MMOL/L (21-32); CHLORIDE 94 MMOL/L (98-107); CREATININE 7.3 MG/DL (0.55-1.30); POTASSIUM 5.3 MMOL/L (3.5-5.1); SODIUM 135 MMOL/L (136-145)
[2017-07-31] MEDS ORDERED: Warfarin Sodium 7.5mg ORAL SCH (17:00)
--- NOTE | 2017-08-05 09:56 | Discharge Summary ---
Discharge Summary Hospital Course Date of Admission Jul 26, 2017 at 10:20 Date of Discharge Jul 31, 2017 at 20:15 Admitting Diagnosis DYSPNEA HPI Jess Church is a 82 year old female who was admitted on Jul 26, 2017 at 10: 20 for Dyspnea Hospital Course [id number] Discharge Discharge Disposition Patient was discharged to Home (01) Discharge Diagnoses: Francoise Champagne NP Aug 05, 2017 09:56
--- NOTE | 2017-08-06 00:45 | Discharge Summary 2 SIG ---
DATE OF ADMISSION: 07/26/2017 DATE OF DISCHARGE: 07/31/2017 CONSULTANTS: 1. Prashant Ramírez M.D. 2. Billy Emmanuel M.D. BRIEF HOSPITAL COURSE: The patient is an 82-year-old female, who presented to ED complaining of shortness of breath. She has history of end-stage renal disease and is on hemodialysis. Last dialysis was 07/23/2017. She missed dialysis supposedly on 07/26/2017 and became short of breath. She has been having shortness of breath for a week and was complaining of cough accompanied by yellowish phlegm. Denied fever or chills. She was recently admitted to [facility] for a lumpectomy on the right breast. She has medical history significant for right breast cancer in 2012, status post lumpectomy and radiation therapy, diabetes mellitus type 2, hypertension, colonic polyps, end-stage renal disease, and hypothyroidism, status post thyroidectomy. She has a left arm AV graft for dialysis. On evaluation at ED, blood work showed hyperkalemia. Potassium level 5.8. Creatinine was 7.3 and BUN 48. BNP was [address]. Chest x-ray showed cardiomegaly with interstitial opacification/edema and patchy perihilar and right lower lung airspace opacities with small right pleural effusion. Rapid influenza swabs were negative. She was admitted to telemetry for acute CHF and possible pneumonia. The patient has congestive heart failure due to volume overload secondary to missed hemodialysis. She had an echocardiogram done that showed ejection fraction of 55% to 60%. There was no evidence of pericardial effusion and had moderate pulmonary hypertension. PASP of 54. She was continued on amiodarone and Coumadin due to atrial fibrillation. She was given labetalol 100 mg b.i.d. She was refusing Avapro and was eventually discontinued. She received inpatient hemodialysis. Blood sugars were monitored and was given sliding scale of NovoLog. TSH was 12. She was given Synthroid 100 mcg daily. She was eventually discharged home. FINAL DIAGNOSES: 1. Acute diastolic congestive heart failure. 2. End-stage renal disease, on hemodialysis. 3. Diabetes mellitus type 2, out of control. 4. Hypertension. 5. Paroxysmal atrial fibrillation on anticoagulation with Coumadin. 6. Hypothyroidism. 7. Breast carcinoma, status post recent lumpectomy. 8. Possible pneumonia. DISPOSITION: The patient was discharged home. DISCHARGE MEDICATIONS: Refer to medication list. DISCHARGE INSTRUCTIONS: Follow up with PMD and Dr. Lopez, blood typer. Abhinav Anderson M.D. I have been assigned to dictate discharge summary on this account and I was not involved in the patient's management. Francoise Champagne N.P. DR: Corina JOB#: [id number] CC: LETICIA
== END 2017-07-31 20:15 | disposition home or self-care (01) | DRG 640 ==
LOC: EDBD 08:39 → EMR 09:25 → 2E 10:20 → EDBEDREQ 11:23 → 2E 07-29 10:36 → 4E 07-30 17:53
DX: E87.79 Other fluid overload (principal); I50.31 Acute diastolic (congestive) heart failure; J18.9 Pneumonia, unspecified organism; N18.6 End stage renal disease; E11.22 Type 2 diabetes mellitus with diabetic chronic kidney disease; I48.0 Paroxysmal atrial fibrillation; E87.5 Hyperkalemia; Z94.0 Kidney transplant status; I13.2 Hypertensive heart and chronic kidney disease with heart failure and with stage 5 chronic kidney disease, or end stage renal disease; Z99.2 Dependence on renal dialysis; Z85.3 Personal history of malignant neoplasm of breast; Z91.15 Patient's noncompliance with renal dialysis; Z79.4 Long term (current) use of insulin; Z79.01 Long term (current) use of anticoagulants; Z90.49 Acquired absence of other specified parts of digestive tract; E89.0 Postprocedural hypothyroidism; Z86.010 Personal history of colon polyps; I51.7 Cardiomegaly
CPT/HCPCS: 36415; 51701; 71045; 80048; 80053; 82550; 82553; 82962; 83036; 83880; 84443; 84484; 85025; 85610; 85730; 86710; 87081; 93005; 93306; J1815